=== PATIENT | female | born 1940 | race Caucasian/White ===

== ENCOUNTER 2016-07-05 12:03 | Emergency (ER) | payer OTHER ==
[~2016-07-05] VITALS: Ht 154.9 cm; Wt 78.6 kg
[~2016-07-05 12:03] MED LIST: COUM2TAB PO; FERR324T4 PO; LORT5TAB PO; MACR100C PO; METH2.5 PO; METO50 PO
[2016-07-05 12:12] VITALS: BP 198/101; PULSE 97; RESP 17; TEMP 99.4; O2SAT 95
--- NOTE | 2016-07-05 13:11 | RADRPT ---
EXAM DATE/TIME: 07/05/2016 12:33 [facility] COMPARISON: No previous studies available for comparison. INDICATIONS : Short of Breath, Cough. MEDICAL HISTORY : Asthma. Bronchitis. SURGICAL HISTORY : None. ENCOUNTER: Initial ACUITY: 1 day PAIN SCORE: 0/10 LOCATION: Bilateral chest FINDINGS: PA and lateral views of the chest. The lungs are clear. Cardiomediastinal silhouette within normal li mits. No evidence of pleural effusion or pneumothorax. CONCLUSION: No acute cardiopulmonary disease identified. Mat Brandt MD on July 05, 2016 at 13:08 Board Certified Radiologist. This report was verified electronically.
--- NOTE | 2016-07-05 13:13 | PD ---
HPI Chief Complaint: Cold / Flu Symptoms Time Seen by Provider: 13:01 Travel History International Travel<30 days: No Contact w/Intl Traveler<30days: No Traveled to known affect area: No History of Present Illness HPI This is a 76-year-old female who presents today with complaints of fevers, chills, and upper respiratory congestion and cough 1-1/2 days. The patient states that the fever and cough started at the same time. She denies any ill contacts. She does report that she did get flu vaccination this year. She denies any productive phlegm with her cough. She denies any nausea vomiting or diarrhea. She reports no urinary symptoms at this time. PFSH Past Medical History Arthritis: No Asthma: Yes Autoimmune Disease: No Blood Disorders: No Heart Rhythm Problems: No Cancer: No Cardiac Catheterization: Yes Cardiovascular Problems: No High Cholesterol: No Chest Pain: Yes Congestive Heart Failure: No COPD: No Diabetes: No Diminished Hearing: No Endocrine: No Gastrointestinal Disorders: No GERD: Yes Genitourinary: No Hiatal Hernia: No Hypertension: Yes Immune Disorder: No Implanted Vascular Access Dvce: No Musculoskeletal: Yes (right knee surgery) Neurologic: No Psychiatric: No Reproductive: No Respiratory: Yes Immunizations Current: Yes Pancreatitis: Yes Sleep Apnea: No Thyroid Disease: No Ulcer: No PNEUMOCCOCAL Vaccine (Year): 1 Menopausal: Yes Past Surgical History Abdominal Surgery: Yes (cholecystectomy) Cardiac Surgery: No Cholecystectomy: Yes Ear Surgery: No Endocrine Surgery: No Eye Surgery: No Genitourinary Surgery: No Gynecologic Surgery: No Joint Replacement: Yes (left knee 06/2011) Oral Surgery: No Thoracic Surgery: No Other Surgery: Yes (right knee) Social History Alcohol Use: No Tobacco Use: No Substance Use: No Allergies-Medications (Allergen,Severity, Reaction): Coded Allergies: Iodine (Verified Allergy, Severe, 07/05/16) Reported Meds & Prescriptions Reported Meds & Active Scripts Active Zithromax Z-Rancho (Azithromycin) 250 Mg Dspk 250 Mg PO DIRECTED 500 MG (2 tabs) day 1, then 1 tab days 2-5. Guaifenesin DM Liq (Guaifenesin-Dextromethorphan Liq) 10-100 Mg/5 Ml Liq 5 Ml PO Q4H PRN Reported Lisinopril 2.5 Mg Tab 2.5 Mg PO DAILY Omeprazole Unknown Strength Cap Unknown Dose PO DAILY Review of Systems Except as stated in HPI: all other systems reviewed are Neg General / Constitutional: Positive: Fever, Chills HENT: No: Headaches, Lightheadedness Cardiovascular: No: Chest Pain or Discomfort, Palpitations Respiratory: Positive: Cough, No: Shortness of Breath Gastrointestinal: No: Nausea, Vomiting, Abdominal Pain Musculoskeletal: Positive: Other (history of osteoarthritis) Skin: No Rash Neurologic: No: Weakness, Dizziness Physical Exam Narrative GENERAL: This is a very pleasant well developed well-nourished female in no acute respiratory distress. The patient was noted to cough occasionally when I entered the room. SKIN: Warm and dry. HEAD: Atraumatic. Normocephalic. EYES: No scleral icterus. No injection or drainage. ENT: No nasal bleeding or discharge. Mucous membranes pink and moist. NECK: Trachea midline. No JVD. CARDIOVASCULAR: Regular rate and rhythm. No murmur appreciated. RESPIRATORY: No accessory muscle use. Clear to auscultation. Breath sounds equal bilaterally. Hepatic and splenic margins not palpable. MUSCULOSKELETAL: No cyanosis. No edema. NEUROLOGICAL: Awake and alert. No obvious cranial nerve deficits. Motor grossly within normal limits. Normal speech. Data Data Last Documented VS Vital Signs Date Time Temp Pulse Resp B/P Pulse Ox O2 Delivery O2 Flow Rate FiO2 07/05/16 15:18 80 18 103/49 98 Room Air 07/05/16 14:38 99.0 Orders Chest, Pa & Lat (07/05/16 ) Complete Blood Count With Diff (07/05/16 13:01) Basic Metabolic Panel (Bmp) (07/05/16 13:01) Ua Includes Microscopic (07/05/16 13:01) Influenzae A/B Antigen (07/05/16 13:01) Sodium Chlor 0.9% 1000 Ml Inj (Ns 1000 M (07/05/16 13:15) Acetaminophen (Tylenol) (07/05/16 13:15) Guaifen-Cod 200-20 Mg/10ml Liq (Robituss (07/05/16 13:30) Sodium Chlorid 0.9% 500 Ml Inj (Ns 500 M (07/05/16 15:30) Labs Laboratory Tests Test 07/05/16 13:15 White Blood Count 6.7 TH/MM3 Red Blood Count 3.92 MIL/MM3 Hemoglobin 11.6 GM/DL Hematocrit 35.1 % Mean Corpuscular Volume 89.7 FL Mean Corpuscular Hemoglobin 29.7 PG Mean Corpuscular Hemoglobin 33.1 % Concent Red Cell Distribution Width 16.0 % Platelet Count 228 TH/MM3 Mean Platelet Volume 8.8 FL Neutrophils (%) (Auto) 87.7 % Lymphocytes (%) (Auto) 4.9 % Monocytes (%) (Auto) 7.2 % Eosinophils (%) (Auto) 0.1 % Basophils (%) (Auto) 0.1 % Neutrophils # (Auto) 5.9 TH/MM3 Lymphocytes # (Auto) 0.3 TH/MM3 Monocytes # (Auto) 0.5 TH/MM3 Eosinophils # (Auto) 0.0 TH/MM3 Basophils # (Auto) 0.0 TH/MM3 CBC Comment DIFF FINAL Differential Comment Sodium Level 142 MEQ/L Potassium Level 4.3 MEQ/L Chloride Level 109 MEQ/L Carbon Dioxide Level 25.9 MEQ/L Anion Gap 7 MEQ/L Blood Urea Nitrogen 20 MG/DL Creatinine 1.26 MG/DL Estimat Glomerular Filtration 42 ML/MIN Rate Random Glucose 83 MG/DL Calcium Level 8.6 MG/DL MDM Medical Decision Making Medical Screen Exam Complete: Yes Emergency Medical Condition: Yes Differential Diagnosis Influenza versus bacterial pneumonia versus bronchitis Narrative Course 76-year-old female presents with fever cough and congestion. The patient had a temperature of 102.4 when she arrived. She had chills with her fever. She was given Tylenol 1 g by mouth times one dose. Her laboratory shows elevated BUN/ creatinine. White count was within normal limits. Chest x-ray shows no evidence of acute infiltrate. Influenza A and B are negative. Given her fever and cough, I will treat her with azithromycin Z-Rancho. She also be given a prescription for cough syrup. She is instructed to return if she does any worsening symptoms i.e. worsening cough continued fever that does not go away, or any other reason that concerns them. She'll follow up with her primary care physician. Diagnosis Primary Impression: Upper respiratory infection Additional Impressions: Fever Mild dehydration Additional Instructions: Increase fluid intake. Return if feeling worse, continued fever, or any other reason that concerned her. Tylenol and Motrin for the fever. Med/Other Pt SpecificInfo: Prescription(s) given Scripts Azithromycin (Zithromax Z-Rancho)250 Mg [id number] Mg PO DIRECTED #1 DSPK Ref 0 500 MG (2 tabs) day 1, then 1 tab days 2-5. Prov:Jadon Arenas MD 07/05/16 Guaifenesin-Dextromethorphan Liq (Guaifenesin DM Liq)10-100 Mg/5 Ml Liq5 Ml PO Q4H PRN (COUGH) #1 BOTTLE Ref 0 Prov:Jadon Arenas MD 07/05/16 Disposition: 01 DISCHARGE HOME Condition: Stable Jadon Arenas MD Jul 05, 2016 13:13
[2016-07-05 13:15] VITALS: BP 142/88; PULSE 96; RESP 20; O2SAT 99
[2016-07-05] MEDS ORDERED: ACETAMINOPHEN 500 MG CPLT PO ONE (13:15)
[2016-07-05] MEDS ORDERED: SODIUM CHLOR 0.9% 1000 ML INJ 1,000 ML IV SCH (13:15)
[2016-07-05] MEDS ORDERED: LISI2.5T3 PO (13:21)
[2016-07-05] MEDS ORDERED: OMEP10CA PO (13:21)
[2016-07-05] MEDS ORDERED: guaiFENesin/CODEINE SYRUP 200 MG/20 MG/10 ML CUP PO ONE (13:30)
[2016-07-05 14:01] LABS: AUTOMATED NEUTROPHIL # 5.9 TH/MM3 (1.8-7.7); BASOPHIL % 0.1 % (0.0-2.0); EOSINOPHIL % 0.1 % (0.0-4.0); HEMATOCRIT 35.1 % (35.0-46.0); HEMO FLAGS DIFF FINAL; LYMPH % 4.9 % (9.0-44.0); LYMPHOCYTE # 0.3 TH/MM3 (1.0-4.8); MEAN CELL VOLUME 89.7 FL (80.0-100.0); MEAN CORPUSCULAR HEMOGLOBIN 29.7 PG (27.0-34.0); MEAN CORPUSCULAR HGB CONC 33.1 % (32.0-36.0); MONO % 7.2 % (0.0-8.0); NEUT % 87.7 % (16.0-70.0); PLATELET COUNT 228 TH/MM3 (150-450); RED BLOOD COUNT 3.92 MIL/MM3 (4.00-5.30); WHITE BLOOD COUNT 6.7 TH/MM3 (4.0-11.0)
[2016-07-05 14:23] LABS: BICARBONATE 25.9 MEQ/L (21.0-32.0)
[2016-07-05 14:24] LABS: POTASSIUM 4.3 MEQ/L (3.5-5.1)
[2016-07-05 14:38] VITALS: TEMP 99
[2016-07-05 15:18] VITALS: BP 103/49; PULSE 80; RESP 18; O2SAT 98
[2016-07-05] MEDS ORDERED: ZITHTAB PO (15:28)
[2016-07-05] MEDS ORDERED: GUAISYP7 PO (15:28)
[2016-07-05] MEDS ORDERED: SODIUM CHLORID 0.9% 500 ML INJ 500 ML IV ONE (15:30)
[2016-07-05 16:22] VITALS: BP 105/52
== END 2016-07-05 16:23 | disposition home or self-care (01) ==
LOC: NEPE 12:03
DX: J06.9 Acute upper respiratory infection, unspecified (principal); J45.909 Unspecified asthma, uncomplicated; I10 Essential (primary) hypertension; K21.9 Gastro-esophageal reflux disease without esophagitis; E86.0 Dehydration
CPT/HCPCS: 71020; 80048; 85025; 87804; 96360; 96361; 99283; J7030; J7040

== ENCOUNTER 2016-07-10 09:31 | Emergency (ER) | payer OTHER ==
[~2016-07-10] VITALS: Ht 157.5 cm; Wt 75.0 kg
[~2016-07-10 09:31] MED LIST changes: -COUM2TAB PO; -FERR324T4 PO; +GUAISYP7 PO; +LISI2.5T3 PO; -LORT5TAB PO; -MACR100C PO; -METH2.5 PO; -METO50 PO; +OMEP10CA PO; +ZITHTAB PO
[2016-07-10 09:33] VITALS: BP 190/102; PULSE 86; RESP 16; TEMP 98.6; O2SAT 96
--- NOTE | 2016-07-10 11:24 | PD ---
HPI . abdominal pain, cough, fever, x 3 days Chief Complaint: Cold / Flu Symptoms Time Seen by Provider: 11:30 Travel History International Travel<30 days: No Contact w/Intl Traveler<30days: No Traveled to known affect area: No History of Present Illness HPI 76-year-old Bruneian-speaking female with hypertension and reflux here accompanied by her daughter (who speaks pakistani), here with complaints of stomach pain for 5 days, constipation for 2 days, nausea for 2 days, fever for 3 days, cough and yellow phlegm. Patient states she has been coughing quite frequently that is causing her stomach to hurt. In addition she admits to some constipation for 2 days. She has not tried any zpjx-onr-hynrzsa formulations to improve her symptoms. She is only taking lisinopril and omeprazole. Patient describes pain as sharp without any radiation. She tells me that it is very mild pain but present. She denies any chest pain or shortness of breath. Initially coming in her blood pressure was high. At the time of examination was 150/71. She is followed by Dr. Zaragoza out of [place], [place]. She was previously seen here on 07/05/16 for upper respiratory infection and treated with zpack and mucinex. She had a CXR at that time that was negative. She also had mildly elevated BUN/Creatinine. PFSH Past Medical History Arthritis: No Asthma: Yes Autoimmune Disease: No Blood Disorders: No Heart Rhythm Problems: No Cancer: No Cardiac Catheterization: Yes Cardiovascular Problems: No High Cholesterol: No Chest Pain: Yes Congestive Heart Failure: No COPD: No Diabetes: No Diminished Hearing: No Endocrine: No Gastrointestinal Disorders: No GERD: Yes Genitourinary: No Hiatal Hernia: No Hypertension: Yes Immune Disorder: No Implanted Vascular Access Dvce: No Musculoskeletal: Yes (right knee surgery) Neurologic: No Psychiatric: No Reproductive: No Respiratory: Yes Immunizations Current: Yes Pancreatitis: Yes Sleep Apnea: No Thyroid Disease: No Ulcer: No PNEUMOCCOCAL Vaccine (Year): 1 ?: Not Menopausal: Yes Past Surgical History Abdominal Surgery: Yes (cholecystectomy) Cardiac Surgery: No Cholecystectomy: Yes Ear Surgery: No Endocrine Surgery: No Eye Surgery: No Genitourinary Surgery: No Gynecologic Surgery: No Joint Replacement: Yes (left knee 06/2011) Oral Surgery: No Thoracic Surgery: No Other Surgery: Yes (right knee) Social History Alcohol Use: No Tobacco Use: No Substance Use: No Allergies-Medications (Allergen,Severity, Reaction): Coded Allergies: Iodine (Verified Allergy, Severe, 07/10/16) Reported Meds & Prescriptions Reported Meds & Active Scripts Active Zofran Odt (Ondansetron Odt) 4 Mg Tab 4 Mg SL Q8HR PRN Tessalon Perles (Benzonatate) 100 Mg Cap 100 Mg PO TID PRN Tamiflu (Oseltamivir Phosphate) 75 Mg Cap 75 Mg PO BID 5 Days Reported Lisinopril 2.5 Mg Tab 2.5 Mg PO DAILY Omeprazole Unknown Strength Cap Unknown Dose PO DAILY Review of Systems General / Constitutional: Positive: Fever, Chills Eyes: No: Visual changes HENT: No: Headaches Cardiovascular: No: Chest Pain or Discomfort Respiratory: Positive: Cough, No: Shortness of Breath Gastrointestinal: Positive: Nausea, Abdominal Pain, Constipation, No: Diarrhea Genitourinary: No: Dysuria Musculoskeletal: No: Pain Skin: No Rash Neurologic: No: Weakness Psychiatric: No: Depression Endocrine: No: Polydipsia Hematologic/Lymphatic: No: Easy Bruising Physical Exam Narrative GENERAL: AAO x 3, no acute distress, Well-nourished, well-developed patient. SKIN: Warm and dry. No visible rashes or bruising. HEAD: Normocephalic and atraumatic. EYES: No scleral icterus. No injection or drainage. EOM intact, PERRLA ENT: No nasal drainage noted. Mucous membranes pink. Airway patent. NECK: Supple, trachea midline. No JVD. No lymphadenopathy. CARDIOVASCULAR: Regular rate and rhythm without murmurs, gallops, or rubs. RESPIRATORY: Breath sounds equal bilaterally. No accessory muscle use. slight expiratory wheeze. GASTROINTESTINAL: Abdomen soft, nondistended, minimal tenderness with deep palpation. Normoactive bowel sounds. EXTREMITIES: No cyanosis or edema. BACK: Nontender without obvious deformity. No CVA tenderness. PSYCH: AAO x 3, normal affect. Data Data Last Documented VS Vital Signs Date Time Temp Pulse Resp B/P Pulse Ox O2 Delivery O2 Flow Rate FiO2 07/10/16 13:07 22 Room Air 07/10/16 12:03 99 07/10/16 11:38 98.4 65 150/71 Orders Complete Blood Count With Diff (07/10/16 11:41) Comprehensive Metabolic Panel (07/10/16 11:41) Lipase (07/10/16 11:41) Lactic Acid (07/10/16 11:41) Urinalysis - C+S If Indicated (07/10/16 11:41) Iv Access Insert/Monitor (07/10/16 11:41) Ecg Monitoring (07/10/16 11:41) Oximetry (07/10/16 11:41) Sodium Chloride 0.9% Flush (Ns Flush) (07/10/16 11:45) Electrocardiogram (07/10/16 11:41) Chest, Single Ap (07/10/16 11:41) Influenzae A/B Antigen (07/10/16 11:41) Ondansetron Inj (Zofran Inj) (07/10/16 12:45) Hydrocodone-Homatropine Liq (Hycodan Liq (07/10/16 13:30) Us Abdomen Gallbladder (07/10/16 13:45) Labs Laboratory Tests Test 07/10/16 07/10/16 07/10/16 12:00 12:32 13:15 White Blood Count 2.5 TH/MM3 Red Blood Count 3.95 MIL/MM3 Hemoglobin 11.3 GM/DL Hematocrit 34.9 % Mean Corpuscular Volume 88.3 FL Mean Corpuscular Hemoglobin 28.7 PG Mean Corpuscular Hemoglobin 32.5 % Concent Red Cell Distribution Width 16.7 % Platelet Count 203 TH/MM3 Mean Platelet Volume 8.9 FL Neutrophils (%) (Auto) 74.2 % Lymphocytes (%) (Auto) 18.2 % Monocytes (%) (Auto) 5.8 % Eosinophils (%) (Auto) 0.6 % Basophils (%) (Auto) 1.2 % Neutrophils # (Auto) 1.9 TH/MM3 Lymphocytes # (Auto) 0.5 TH/MM3 Monocytes # (Auto) 0.1 TH/MM3 Eosinophils # (Auto) 0.0 TH/MM3 Basophils # (Auto) 0.0 TH/MM3 CBC Comment DIFF FINAL Differential Comment Sodium Level 142 MEQ/L Potassium Level 5.1 MEQ/L Chloride Level 110 MEQ/L Carbon Dioxide Level 25.2 MEQ/L Anion Gap 7 MEQ/L Blood Urea Nitrogen 13 MG/DL Creatinine 0.96 MG/DL Estimat Glomerular Filtration 57 ML/MIN Rate Random Glucose 87 MG/DL Calcium Level 8.5 MG/DL Total Bilirubin 0.4 MG/DL Aspartate Amino Transf 257 U/L (AST/SGOT) Alanine Aminotransferase 117 U/L (ALT/SGPT) Alkaline Phosphatase 111 U/L Total Protein 6.5 GM/DL Albumin 3.5 GM/DL Lipase 165 U/L Urine Color YELLOW Urine Turbidity CLEAR Urine pH 6.0 Urine Specific Chaplin 1.016 Urine Protein TRACE mg/dL Urine Glucose (UA) NEG mg/dL Urine Ketones NEG mg/dL Urine Occult Blood NEG Urine Nitrite NEG Urine Bilirubin NEG Urine Urobilinogen LESS THAN 2.0 MG/DL Urine Leukocyte Esterase SMALL Urine RBC 1 /hpf Urine WBC 4 /hpf Urine Squamous Epithelial 2 /hpf Cells Urine Mucus FEW /lpf Microscopic Urinalysis Comment CULT NOT INDICATED Lactic Acid Level 1.0 mmol/L MDM Medical Decision Making Medical Screen Exam Complete: Yes Emergency Medical Condition: Yes Medical Record Reviewed: Yes Differential Diagnosis bronchitis, PNA, viral syndrome, constipation, Narrative Course 76-year-old Bruneian-speaking female with hypertension and reflux here accompanied by her daughter (who speaks pakistani), here with complaints of stomach pain for 5 days, constipation for 2 days, nausea for 2 days, fever for 3 days, cough and yellow phlegm. Patient states she has been coughing quite frequently that is causing her stomach to hurt. In addition she admits to some constipation for 2 days. She has not tried any huiv-pbu-hdldgzs formulations to improve her symptoms. She is only taking lisinopril and omeprazole. Patient describes pain as sharp without any radiation. She tells me that it is very mild pain but present. She denies any chest pain or shortness of breath. Initially coming in her blood pressure was high. At the time of examination was 150/71. She is followed by Dr. Zaragoza out of [place], [place]. She was previously seen here on 07/05/16 for upper respiratory infection and treated with zpack and mucinex. She had a CXR at that time that was negative. She also had mildly elevated BUN/Creatinine. Patient seen and examined. Case discussed with Dr. Theodore. CXR, labs including UA, influenza, and lipase ordered EKG is normal. CXR is normal 1241: discussed with daughter. Patient now complaining of nausea. Zofran ordered. influenza A positive Patient requesting something for cough: Hycodan given in ED LFTs elevated: Liver US ordered. May be related to zithromax usage Last 24 hours Impressions Chest X-Ray 07/10/16 1141 Signed Impressions: Service Date/Time: Sunday, July 10, 2016 12:10 - CONCLUSION: No acute disease. Jonh Narvaez MD FACR Laboratory Tests Test 07/10/16 07/10/16 07/10/16 12:00 12:32 13:15 White Blood Count 2.5 TH/MM3 Red Blood Count 3.95 MIL/MM3 Hemoglobin 11.3 GM/DL Hematocrit 34.9 % Mean Corpuscular Volume 88.3 FL Mean Corpuscular Hemoglobin 28.7 PG Mean Corpuscular Hemoglobin 32.5 % Concent Red Cell Distribution Width 16.7 % Platelet Count 203 TH/MM3 Mean Platelet Volume 8.9 FL Neutrophils (%) (Auto) 74.2 % Lymphocytes (%) (Auto) 18.2 % Monocytes (%) (Auto) 5.8 % Eosinophils (%) (Auto) 0.6 % Basophils (%) (Auto) 1.2 % Neutrophils # (Auto) 1.9 TH/MM3 Lymphocytes # (Auto) 0.5 TH/MM3 Monocytes # (Auto) 0.1 TH/MM3 Eosinophils # (Auto) 0.0 TH/MM3 Basophils # (Auto) 0.0 TH/MM3 CBC Comment DIFF FINAL Differential Comment Sodium Level 142 MEQ/L Potassium Level 5.1 MEQ/L Chloride Level 110 MEQ/L Carbon Dioxide Level 25.2 MEQ/L Anion Gap 7 MEQ/L Blood Urea Nitrogen 13 MG/DL Creatinine 0.96 MG/DL Estimat Glomerular Filtration 57 ML/MIN Rate Random Glucose 87 MG/DL Calcium Level 8.5 MG/DL Total Bilirubin 0.4 MG/DL Aspartate Amino Transf 257 U/L (AST/SGOT) Alanine Aminotransferase 117 U/L (ALT/SGPT) Alkaline Phosphatase 111 U/L Total Protein 6.5 GM/DL Albumin 3.5 GM/DL Lipase 165 U/L Urine Color YELLOW Urine Turbidity CLEAR Urine pH 6.0 Urine Specific Chaplin 1.016 Urine Protein TRACE mg/dL Urine Glucose (UA) NEG mg/dL Urine Ketones NEG mg/dL Urine Occult Blood NEG Urine Nitrite NEG Urine Bilirubin NEG Urine Urobilinogen LESS THAN 2.0 MG/DL Urine Leukocyte Esterase SMALL Urine RBC 1 /hpf Urine WBC 4 /hpf Urine Squamous Epithelial 2 /hpf Cells Urine Mucus FEW /lpf Microscopic Urinalysis Comment CULT NOT INDICATED Lactic Acid Level 1.0 mmol/L Patient verbalized understanding of instructions, questions were answered, and thanked me for their care. I advised them if their condition worsens, please return to the nearest emergency room for further care. Diagnosis Primary Impression: Influenza A Additional Impressions: Fever Qualified Code: R50.9 - Fever, unspecified fever cause Elevated LFTs Patient Instructions: Acute Cough (ED), Fever in Adults (ED), General Instructions, H1N1 Influenza (ED) Additional Instructions: Please return to emergency department if your symptoms return or worsen. Follow up with your primary care provider. Your liver function tests were elevated. Your primary care doctor will need to recheck these to make sure they are coming down. Take medications as prescribed. Med/Other Pt SpecificInfo: Prescription(s) given, No Change to Meds Scripts Ondansetron Odt (Zofran Odt)4 Mg Tab4 Mg SL Q8HR PRN (Nausea/Vomiting) #30 TAB Ref 0 Prov:Keshia Willams 07/10/16 Benzonatate (Tessalon Perles)100 Mg [id number] Mg PO TID PRN (COUGH) #30 CAP Ref 0 Prov:Keshia Willams 07/10/16 Oseltamivir (Tamiflu)75 Mg Cap75 Mg PO BID 5 Days Ref 0 Prov:Keshia Willams 07/10/16 Disposition: 01 DISCHARGE HOME Condition: Stable Keshia Willams Jul 10, 2016 11:23
[2016-07-10 11:38] VITALS: BP 150/71; PULSE 65; RESP 22; TEMP 98.4; O2SAT 98
[2016-07-10] MEDS ORDERED: SODIUM CHLORIDE 0.9% FLUSH 5 ML FLUSH IVF PRN (11:45)
[2016-07-10 12:03] VITALS: O2SAT 99
--- NOTE | 2016-07-10 12:36 | RADRPT ---
EXAM DATE/TIME: 07/10/2016 12:10 [facility] COMPARISON: No previous studies available for comparison. INDICATIONS : Short of breath, cough, slight pain left upper chest, nausea. Coughing for one week MEDICAL HISTORY : asthma, bronchitis SURGICAL HISTORY : None. ENCOUNTER: Initial ACUITY: 1 week PAIN SCORE: 2/10 LOCATION: Bilateral chest FINDINGS: A single view of the chest demonstrates the lungs to be symmetrically aerated without evidence of mas s, infiltrate or effusion. The cardiomediastinal contours are unremarkable. Osseous structures are intact. CONCLUSION: No acute disease. Jonh Narvaez MD FACR on July 10, 2016 at 12:35 Board Certified Radiologist. This report was verified electronically.
[2016-07-10] MEDS ORDERED: ONDANSETRON HCL 4 MG/2 ML VIAL IV PUSH ONE (12:45)
[2016-07-10] MEDS ORDERED: OSEL75 PO (12:57)
[2016-07-10] MEDS ORDERED: BENZ100 PO (12:57)
[2016-07-10 12:58] LABS: BLOOD, URINE NEG (NEG); COMMENT (UR) CULT NOT INDICATED; CULTURE IF INDICATED CULT NOT INDICATED; GLUCOSE,URINE NEG (NEG); KETONE, URINE NEG (NEG); MUCUS URINE FEW /lpf (OCC); NITRITE,URINE NEG (NEG); SQUAMOUS EPITHELIAL CELL URINE 2 /hpf (0-5); URINE COLOR YELLOW (YELLW/STRAW)
[2016-07-10 13:16] LABS: AUTOMATED NEUTROPHIL # 1.9 TH/MM3 (1.8-7.7); BASOPHIL % 1.2 % (0.0-2.0); EOSINOPHIL % 0.6 % (0.0-4.0); HEMATOCRIT 34.9 % (35.0-46.0); HEMO FLAGS DIFF FINAL; LYMPH % 18.2 % (9.0-44.0); LYMPHOCYTE # 0.5 TH/MM3 (1.0-4.8); MEAN CELL VOLUME 88.3 FL (80.0-100.0); MEAN CORPUSCULAR HEMOGLOBIN 28.7 PG (27.0-34.0); MEAN CORPUSCULAR HGB CONC 32.5 % (32.0-36.0); MONO % 5.8 % (0.0-8.0); NEUT % 74.2 % (16.0-70.0); PLATELET COUNT 203 TH/MM3 (150-450); RED BLOOD COUNT 3.95 MIL/MM3 (4.00-5.30); RED CELL DISTRIBUTION WIDTH 16.7 % (11.6-17.2); WHITE BLOOD COUNT 2.5 TH/MM3 (4.0-11.0)
[2016-07-10] MEDS ORDERED: HYDROcodone 5 MG/HOMATROPINE 1.5 MG SYRUP 5 ML CUP PO ONE (13:30)
[2016-07-10 13:34] LABS: ALKALINE PHOSPHATASE 111 U/L (45-117); TOTAL BILIRUBIN ADULT 0.4 MG/DL (0.2-1.0)
[2016-07-10 13:38] LABS: ALT (GPT) 117 U/L (10-53); ANION GAP 7 MEQ/L (5-15); AST (GOT) 257 U/L (15-37); BICARBONATE 25.2 MEQ/L (21.0-32.0); BLOOD UREA NITROGEN 13 MG/DL (7-18); CHLORIDE 110 MEQ/L (98-107); GLOMERULAR FILTRATION RATE 57 ML/MIN (>89); POTASSIUM 5.1 MEQ/L (3.5-5.1); SODIUM (NA) 142 MEQ/L (136-145)
[2016-07-10] MEDS ORDERED: ZOFR4TAB3 SL (14:27)
--- NOTE | 2016-07-10 15:03 | RADRPT ---
EXAM DATE/TIME: 07/10/2016 14:22 [facility] COMPARISON: No previous studies available for comparison. INDICATIONS : Nausea and vomiting. MEDICAL HISTORY : Gastroesophageal reflux disease. Hypertension. Asthma. Pancreatic tumor. SURGICAL HISTORY : Cholecystectomy. Bilateral knee surgery. Cardiac catheterization. ENCOUNTER: Subsequent ACUITY: 1 day PAIN SCORE: 0/10 LOCATION: Right upper quadrant MEASUREMENTS: LIVER: 15.4 cm length COMMON DUCT: 10 mm RIGHT KIDNEY: 10.4 x x 4.9 cm FINDINGS: LIVER: Normal echotexture without focal lesion or ductal dilatation. COMMON DUCT: No intraluminal mass or stone visualized. GALLBLADDER: Surgically removed. PANCREAS: There is some dilatation pancreatic duct at 6 mm. RIGHT KIDNEY: No hydronephrosis. There is a cyst along the lower pole measuring 3.1 cm. There is a possible nonobst ructing stone in the midpole measuring 6 mm. CONCLUSION: 1. Status post cholecystectomy with some dilatation of the common bile duct. This is most likely rese rvoir effect. However, recommend correlation with liver laboratory values. 2. Nonspecific dilatation of the pancreatic duct. If clinically indicated, a CT scan of the abdomen w ith IV contrast is recommended for further evaluation. This can be performed on a nonemergent outpati ent basis. 3. Possible small amount of shunting stone mid pole right kidney measuring 6 mm. 4. Benign right renal cyst measuring 3.1 cm. Zain Card MD on July 10, 2016 at 14:58 Board Certified Radiologist. This report was verified electronically.
--- NOTE | 2016-07-10 15:26 | PD ---
Physical Exam Date Seen by Provider: Jul 10, 2016 Time Seen by Provider: 13:30 Narrative I, Dr. Theodore, have reviewed the advance practice practitioner's documentation and am in agreement, met with the patient face to face, made the diagnosis, and the medical decision making was done by me. *My assessment and Findings: Patient seen and evaluated with PA, please see PA for further information. Here with nausea, vomiting, malaise, cough. GENERAL: Well-nourished, well-developed elderly female patient in no acute distress. SKIN: Warm and dry. HEAD: Normocephalic. EYES: No scleral icterus. No injection or drainage. NECK: Supple, trachea midline. CARDIOVASCULAR: Regular rate and rhythm without murmurs, gallops, or rubs. RESPIRATORY: Breath sounds equal bilaterally. No accessory muscle use. GASTROINTESTINAL: Abdomen soft, non-tender, nondistended. Benign. MUSCULOSKELETAL: No cyanosis, or edema. BACK: Nontender without obvious deformity. No CVA tenderness. Laboratory Tests Test 07/10/16 07/10/16 12:00 12:32 White Blood Count 2.5 TH/MM3 (4.0-11.0) Red Blood Count 3.95 MIL/MM3 (4.00-5.30) Hemoglobin 11.3 GM/DL (11.6-15.3) Hematocrit 34.9 % (35.0-46.0) Neutrophils (%) (Auto) 74.2 % (16.0-70.0) Lymphocytes # (Auto) 0.5 TH/MM3 (1.0-4.8) Chloride Level 110 MEQ/L (98-107) Estimat Glomerular Filtration 57 ML/MIN (>89) Rate Aspartate Amino Transf 257 U/L (15-37) (AST/SGOT) Alanine Aminotransferase 117 U/L (10-53) (ALT/SGPT) Urine Leukocyte Esterase SMALL (NEG) Urine Mucus FEW /lpf (OCC) Last 24 hours Impressions Chest X-Ray 07/10/16 1141 Signed Impressions: Service Date/Time: Sunday, July 10, 2016 12:10 - CONCLUSION: No acute disease. Jonh Narvaez MD FACR Abdomen is fairly benign. Her LFTs are mildly elevated. She has influenza. I suspect that influenza is the cause of her current symptoms. Vital signs are stable in the ER. Ultrasound done did not show any signs of significant acute liver or gallbladder processes. She is status post cholecystectomy. At this point, my plan would be to release her with symptomatic relief for nausea and vomiting and treatment for influenza. Follow-up with primary care physician as needed. Return for any worsening in symptoms. The plan was discussed with her and she states understanding. Data Data Last Documented VS Vital Signs Date Time Temp Pulse Resp B/P Pulse Ox O2 Delivery O2 Flow Rate FiO2 07/10/16 13:07 22 Room Air 07/10/16 12:03 99 07/10/16 11:38 98.4 65 150/71 Orders Complete Blood Count With Diff (07/10/16 11:41) Comprehensive Metabolic Panel (07/10/16 11:41) Lipase (07/10/16 11:41) Lactic Acid (07/10/16 11:41) Urinalysis - C+S If Indicated (07/10/16 11:41) Iv Access Insert/Monitor (07/10/16 11:41) Ecg Monitoring (07/10/16 11:41) Oximetry (07/10/16 11:41) Sodium Chloride 0.9% Flush (Ns Flush) (07/10/16 11:45) Electrocardiogram (07/10/16 11:41) Chest, Single Ap (07/10/16 11:41) Influenzae A/B Antigen (07/10/16 11:41) Ondansetron Inj (Zofran Inj) (07/10/16 12:45) Hydrocodone-Homatropine Liq (Hycodan Liq (07/10/16 13:30) Us Abdomen Gallbladder (07/10/16 13:45) Labs Laboratory Tests Test 07/10/16 07/10/16 07/10/16 12:00 12:32 13:15 White Blood Count 2.5 TH/MM3 Red Blood Count 3.95 MIL/MM3 Hemoglobin 11.3 GM/DL Hematocrit 34.9 % Mean Corpuscular Volume 88.3 FL Mean Corpuscular Hemoglobin 28.7 PG Mean Corpuscular Hemoglobin 32.5 % Concent Red Cell Distribution Width 16.7 % Platelet Count 203 TH/MM3 Mean Platelet Volume 8.9 FL Neutrophils (%) (Auto) 74.2 % Lymphocytes (%) (Auto) 18.2 % Monocytes (%) (Auto) 5.8 % Eosinophils (%) (Auto) 0.6 % Basophils (%) (Auto) 1.2 % Neutrophils # (Auto) 1.9 TH/MM3 Lymphocytes # (Auto) 0.5 TH/MM3 Monocytes # (Auto) 0.1 TH/MM3 Eosinophils # (Auto) 0.0 TH/MM3 Basophils # (Auto) 0.0 TH/MM3 CBC Comment DIFF FINAL Differential Comment Sodium Level 142 MEQ/L Potassium Level 5.1 MEQ/L Chloride Level 110 MEQ/L Carbon Dioxide Level 25.2 MEQ/L Anion Gap 7 MEQ/L Blood Urea Nitrogen 13 MG/DL Creatinine 0.96 MG/DL Estimat Glomerular Filtration 57 ML/MIN Rate Random Glucose 87 MG/DL Calcium Level 8.5 MG/DL Total Bilirubin 0.4 MG/DL Aspartate Amino Transf 257 U/L (AST/SGOT) Alanine Aminotransferase 117 U/L (ALT/SGPT) Alkaline Phosphatase 111 U/L Total Protein 6.5 GM/DL Albumin 3.5 GM/DL Lipase 165 U/L Urine Color YELLOW Urine Turbidity CLEAR Urine pH 6.0 Urine Specific [place] 1.016 Urine Protein TRACE mg/dL Urine Glucose (UA) NEG mg/dL Urine Ketones NEG mg/dL Urine Occult Blood NEG Urine Nitrite NEG Urine Bilirubin NEG Urine Urobilinogen LESS THAN 2.0 MG/DL Urine Leukocyte Esterase SMALL Urine RBC 1 /hpf Urine WBC 4 /hpf Urine Squamous Epithelial 2 /hpf Cells Urine Mucus FEW /lpf Microscopic Urinalysis Comment CULT NOT INDICATED Lactic Acid Level 1.0 mmol/L [facility] Medical Record Reviewed: Yes Supervised Visit with IRIS: Yes Diagnosis Primary Impression: Influenza A Additional Impressions: Fever Qualified Code: R50.9 - Fever, unspecified fever cause Elevated LFTs Patient Instructions: General Instructions, Fever in Adults (ED), H1N1 Influenza (ED), Acute Cough (ED) Departure Forms: Tests/Procedures Additional Instruction: Please return to emergency department if your symptoms return or worsen. Follow up with your primary care provider. Your liver function tests were elevated. Your primary care doctor will need to recheck these to make sure they are coming down. Take medications as prescribed. Scripts Ondansetron Odt (Zofran Odt)4 Mg Tab4 Mg SL Q8HR PRN (Nausea/Vomiting) #30 TAB Ref 0 Prov:Keshia Willams 07/10/16 Benzonatate (Tessalon Perles)100 Mg Epi261 Mg PO TID PRN (COUGH) #30 CAP Ref 0 Prov:Keshia Willams 07/10/16 Oseltamivir (Tamiflu)75 Mg Cap75 Mg PO BID 5 Days Ref 0 Prov:Keshia Willams 07/10/16 Disposition: 01 DISCHARGE HOME Condition: Stable Cayetano Theodore MD Jul 10, 2016 15:26
[2016-07-10 15:35] VITALS: BP 167/73
--- NOTE | 2016-07-10 21:38 | EKG ---
Date Performed: 07/10/2016 Time Performed: 12:16:08 PTAGE: 76 years EKG: Sinus rhythm NORMAL ECG NO PREVIOUS TRACING DOCTOR: Brayan Jasso Interpretating Date/Time 07/10/2016 21:36:43
== END 2016-07-10 15:51 | disposition home or self-care (01) ==
LOC: NEPC 09:31
DX: J09.X2 Influenza due to identified novel influenza A virus with other respiratory manifestations (principal); R79.89 Other specified abnormal findings of blood chemistry; R50.9 Fever, unspecified; K59.00 Constipation, unspecified; K21.9 Gastro-esophageal reflux disease without esophagitis; I10 Essential (primary) hypertension; J45.909 Unspecified asthma, uncomplicated
CPT/HCPCS: 71010; 76705; 80053; 81001; 83605; 83690; 85025; 87804; 93005; 96374; 99284; J2405

== ENCOUNTER 2016-11-29 08:22 | Inpatient (IN) | payer OTHER, MEDICARE ==
[~2016-11-29] VITALS: Ht 165.1 cm; Wt 75.0 kg
[2016-11-29] VITALS (9 sets, daily range): BP systolic 131–234; BP diastolic 64–102; PULSE 60–81; RESP 17–24; TEMP 97.2–98.9; O2SAT 98–100
[~2016-11-29 08:22] MED LIST changes: +BENZ100 PO; -GUAISYP7 PO; +OSEL75 PO; -ZITHTAB PO; +ZOFR4TAB3 SL
[2016-11-29] MEDS ORDERED: METH2.5T PO (08:53)
[2016-11-29] MEDS ORDERED: PRED5TAB PO (08:53)
[2016-11-29] MEDS ORDERED: LISI40TA PO (08:53)
[2016-11-29] MEDS ORDERED: AMOX500T PO (08:53)
[2016-11-29] MEDS ORDERED: hydrALAZINE HCL 20 MG/ML VIAL IV PUSH ONE (09:00)
--- NOTE | 2016-11-29 09:01 | PD ---
HPI Chief Complaint: Neuro Symptoms/ Deficits Time Seen by Provider: 08:47 Travel History International Travel<30 days: No Contact w/Intl Traveler<30days: No Traveled to known affect area: No History of Present Illness HPI Patient is a 76-year-old female who presents to emergency room with her son for evaluation of elevated blood pressure with headache and vision changes and dizziness for the past 2 weeks. Patient reports that she has history of hypertension, reports that 2 weeks ago, she began to have left sided headache, dizziness, vision changes. Patient reports that she followed-up with her primary care doctor who increased her lisinopril to 40 mg daily. Patient reports that she has been taking her medication since yesterday but isn't feeling any better. Denies taking any anticoagulants. Denies any fall or trauma to the head or neck. Patient denies any chest pain or shortness of breath patient reports that she is also being treated for an ear infection, she is taking amoxicillin 500 mg twice a day as well as prednisone for her left- sided ear infection. 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) Sleep Apnea: No Thyroid Disease: No Ulcer: No PNEUMOCCOCAL Vaccine (Year): 1 Menopausal: Yes : 5 Para: 5 Past Surgical History Abdominal Surgery: Yes (cholecystectomy) Cardiac Surgery: No Cholecystectomy: Yes Ear Surgery: No Endocrine Surgery: No Eye Surgery: No Genitourinary Surgery: No Gynecologic Surgery: No Joint Replacement: Yes (left knee 06/2011) Oral Surgery: No Thoracic Surgery: No Other Surgery: Yes (right knee) Social History Alcohol Use: No Tobacco Use: No Substance Use: No Allergies-Medications (Allergen,Severity, Reaction): Coded Allergies: Iodine (Verified Allergy, Severe, 11/29/16) Reported Meds & Prescriptions Reported Meds & Active Scripts Active Reported Amoxicillin 500 Mg Tab 500 Mg PO BID Methotrexate 2.5 Mg Tab 8 Tab PO Q7D Lisinopril 40 Mg Tab 40 Mg PO DAILY Prednisone 5 Mg Tab 5 Mg PO DAILY Review of Systems General / Constitutional: No: Fever Eyes: Positive: Visual changes HENT: Positive: Headaches, Lightheadedness Cardiovascular: No: Chest Pain or Discomfort Respiratory: No: Shortness of Breath Gastrointestinal: No: Abdominal Pain Genitourinary: No: Dysuria Musculoskeletal: No: Pain Skin: No Rash Neurologic: Positive: Dizziness, Headache, No: Weakness Psychiatric: No: Depression Endocrine: No: Polydipsia Hematologic/Lymphatic: No: Easy Bruising Physical Exam Narrative GENERAL: Mild distress SKIN: Focused skin assessment warm/dry. HEAD: Atraumatic. Normocephalic. EYES: Pupils equal and round. No scleral icterus. No injection or drainage. ENT: No nasal bleeding or discharge. Mucous membranes pink and moist. NECK: Trachea midline. No JVD. CARDIOVASCULAR: Regular rate and rhythm. No murmur appreciated. RESPIRATORY: No accessory muscle use. Clear to auscultation. Breath sounds equal bilaterally. GASTROINTESTINAL: Abdomen soft, non-tender, nondistended. Hepatic and splenic margins not palpable. MUSCULOSKELETAL: No obvious deformities. No clubbing. No cyanosis. No edema. NEUROLOGICAL: Awake and alert. No obvious cranial nerve deficits. Motor grossly within normal limits. Normal speech. Cranial nerves 2- 12 grossly intact with no neurological deficits PSYCHIATRIC: Appropriate mood and affect; insight and judgment normal. Data Data Last Documented VS Vital Signs Date Time Temp Pulse Resp B/P Pulse Ox O2 Delivery O2 Flow Rate FiO2 11/29/16 09:39 60 22 183/97 100 Room Air 11/29/16 08:24 98.9 Orders Complete Blood Count With Diff (11/29/16 08:54) Basic Metabolic Panel (Bmp) (11/29/16 08:54) Prothrombin Time / Inr (Pt) (11/29/16 08:54) Act Partial Throm Time (Ptt) (11/29/16 08:54) Ct Brain W/O Iv Contrast(Rout) (11/29/16 08:54) Ecg Monitoring (11/29/16 08:54) Iv Access Insert/Monitor (11/29/16 08:54) Oximetry (11/29/16 08:54) Hydralazine Inj (Apresoline Inj) (11/29/16 09:00) Ckmb (Isoenzyme) Profile (11/29/16 08:54) Troponin I (11/29/16 08:54) Urinalysis - C+S If Indicated (11/29/16 08:54) Electrocardiogram (11/29/16 08:56) Admit To Inpatient (11/29/16 ) Vital Signs (Adult) Q4H (11/29/16 10:59) Activity Bed Rest With Brp (11/29/16 10:59) Public Improvement Inspector / Telemetry KAUSHIK.Q8H (11/29/16 10:59) Intake + Output KAUSHIK.QSHIFT (11/29/16 10:59) Diet Heart Healthy (11/29/16 Lunch) Sodium Chloride 0.9% Flush (Ns Flush) (11/29/16 11:00) Sodium Chloride 0.9% Flush (Ns Flush) (11/29/16 21:00) Enalaprilat Inj (Vasotec Inj) (11/29/16 11:00) Labetalol Inj (Trandate Inj) (11/29/16 11:00) Amlodipine (Norvasc) (11/29/16 11:00) Hydrochlorothiazide (Hydrodiuril) (11/29/16 11:00) Basic Metabolic Panel (Bmp) (11/30/16 06:00) Complete Blood Count With Diff (11/30/16 06:00) Lipid Profile (11/29/16 10:59) Ua Includes Microscopic (11/29/16 10:59) Electrocardiogram (11/29/16 ) Inpatient Certification (11/29/16 ) (Nf) Lisinopril (11/29/16 11:00) Admit Order (Ed Use Only) (11/29/16 11:02) Labs Laboratory Tests Test 11/29/16 11/29/16 09:25 09:36 White Blood Count 10.4 TH/MM3 Red Blood Count 4.14 MIL/MM3 Hemoglobin 12.8 GM/DL Hematocrit 38.7 % Mean Corpuscular Volume 93.5 FL Mean Corpuscular Hemoglobin 30.8 PG Mean Corpuscular Hemoglobin 33.0 % Concent Red Cell Distribution Width 15.7 % Platelet Count 283 TH/MM3 Mean Platelet Volume 8.0 FL Neutrophils (%) (Auto) 75.7 % Lymphocytes (%) (Auto) 17.4 % Monocytes (%) (Auto) 6.1 % Eosinophils (%) (Auto) 0.3 % Basophils (%) (Auto) 0.5 % Neutrophils # (Auto) 7.8 TH/MM3 Lymphocytes # (Auto) 1.8 TH/MM3 Monocytes # (Auto) 0.6 TH/MM3 Eosinophils # (Auto) 0.0 TH/MM3 Basophils # (Auto) 0.1 TH/MM3 CBC Comment DIFF FINAL Differential Comment Prothrombin Time 10.2 SEC Prothromb Time International 0.9 RATIO Ratio Activated Partial 25.8 SEC Thromboplast Time Sodium Level 140 MEQ/L Potassium Level 4.3 MEQ/L Chloride Level 112 MEQ/L Carbon Dioxide Level 22.2 MEQ/L Anion Gap 6 MEQ/L Blood Urea Nitrogen 29 MG/DL Creatinine 1.21 MG/DL Estimat Glomerular Filtration 43 ML/MIN Rate Random Glucose 85 MG/DL Calcium Level 8.9 MG/DL Total Creatine Kinase 49 U/L Troponin I LESS THAN 0.02 NG/ML Urine Color LIGHT-YELLOW Urine Turbidity CLEAR Urine pH 6.0 Urine Specific [place] 1.010 Urine Protein NEG mg/dL Urine Glucose (UA) NEG mg/dL Urine Ketones NEG mg/dL Urine Occult Blood NEG Urine Nitrite NEG Urine Bilirubin NEG Urine Urobilinogen LESS THAN 2.0 MG/DL Urine Leukocyte Esterase TRACE Urine WBC 1 /hpf Urine Squamous Epithelial 1 /hpf Cells Microscopic Urinalysis Comment CULT NOT INDICATED MDM Medical Decision Making Medical Screen Exam Complete: Yes Emergency Medical Condition: Yes Interpretation(s) EKG at 0856: NSR at 62bpm, qt/qtc: 411/416, no acute st or t wave changes, normal axis Vital Signs Date Time Temp Pulse Resp B/P Pulse Ox O2 Delivery O2 Flow Rate FiO2 11/29/16 08:43 62 17 208/85 100 Room Air 11/29/16 08:24 98.9 74 20 234/102 100 Room Air Differential Diagnosis Differential includes hypertensive emergency versus hypertensive urgency, intracranial hemorrhage, CVA unlikely Narrative Course Patient is a 76-year-old female with history of hypertension, presents to emergency room with complaints of elevated blood pressure. Patient reports that she has noticed increased blood pressures over the past 2 weeks, or to your symptoms associated with headache, vision changes and dizziness. See her primary care doctor is Dr. Yeni Mahoney 2 days ago and she increased her lisinopril to 40mg which patient started yesterday. Patient reports that she still symptomatic is not feeling any better. She is also on amoxicillin as well as prednisone for ear infection, she started these antibiotics and steroids on November 23, 2016. Patient with no fevers or chills, no trauma. Patient was placed on a cardiac cath lab manager upon arrival to the emergency room. EKG obtained. Blood pressure is 208/85, IV hydralazine ordered. CT of the head , lab work including cardiac enzymes ordered to evaluate for end organ damage. We'll continue to monitor patient. Vital Signs Date Time Temp Pulse Resp B/P Pulse Ox O2 Delivery O2 Flow Rate FiO2 11/29/16 09:39 60 22 183/97 100 Room Air 11/29/16 08:57 100 Room Air 11/29/16 08:43 62 17 208/85 100 Room Air 11/29/16 08:24 98.9 74 20 234/102 100 Room Air Laboratory Tests Test 11/29/16 11/29/16 09:25 09:36 White Blood Count 10.4 TH/MM3 (4.0-11.0) Red Blood Count 4.14 MIL/MM3 (4.00-5.30) Hemoglobin 12.8 GM/DL (11.6-15.3) Hematocrit 38.7 % (35.0-46.0) Mean Corpuscular Volume 93.5 FL (80.0-100.0) Mean Corpuscular Hemoglobin 30.8 PG (27.0-34.0) Mean Corpuscular Hemoglobin 33.0 % Concent (32.0-36.0) Red Cell Distribution Width 15.7 % (11.6-17.2) Platelet Count 283 TH/MM3 (150-450) Mean Platelet Volume 8.0 FL (7.0-11.0) Neutrophils (%) (Auto) 75.7 % (16.0-70.0) Lymphocytes (%) (Auto) 17.4 % (9.0-44.0) Monocytes (%) (Auto) 6.1 % (0.0-8.0) Eosinophils (%) (Auto) 0.3 % (0.0-4.0) Basophils (%) (Auto) 0.5 % (0.0-2.0) Neutrophils # (Auto) 7.8 TH/MM3 (1.8-7.7) Lymphocytes # (Auto) 1.8 TH/MM3 (1.0-4.8) Monocytes # (Auto) 0.6 TH/MM3 (0-0.9) Eosinophils # (Auto) 0.0 TH/MM3 (0-0.4) Basophils # (Auto) 0.1 TH/MM3 (0-0.2) CBC Comment DIFF FINAL Differential Comment Prothrombin Time 10.2 SEC (9.8-11.6) Prothromb Time International 0.9 RATIO Ratio Activated Partial 25.8 SEC Thromboplast Time (24.3-30.1) Sodium Level 140 MEQ/L (136-145) Potassium Level 4.3 MEQ/L (3.5-5.1) Chloride Level 112 MEQ/L (98-107) Carbon Dioxide Level 22.2 MEQ/L (21.0-32.0) Anion Gap 6 MEQ/L (5-15) Blood Urea Nitrogen 29 MG/DL (7-18) Creatinine 1.21 MG/DL (0.50-1.00) Estimat Glomerular Filtration 43 ML/MIN (>89) Rate Random Glucose 85 MG/DL (74-106) Calcium Level 8.9 MG/DL (8.5-10.1) Total Creatine Kinase 49 U/L (26-192) Troponin I LESS THAN 0.02 NG/ML (0.02-0.05) Urine Color LIGHT-YELLOW (YELLW/STRAW) Urine Turbidity CLEAR (CLEAR) Urine pH 6.0 (5.0-8.5) Urine Specific [place] 1.010 (1.002-1.035) Urine Protein NEG mg/dL (NEG-TRACE) Urine Glucose (UA) NEG mg/dL (NEG) Urine Ketones NEG mg/dL (NEG) Urine Occult Blood NEG (NEG) Urine Nitrite NEG (NEG) Urine Bilirubin NEG (NEG) Urine Urobilinogen LESS THAN 2.0 MG/DL (LESS THAN 2.0) Urine Leukocyte Esterase TRACE (NEG) Urine WBC 1 /hpf (0-5) Urine Squamous Epithelial 1 /hpf (0-5) Cells Microscopic Urinalysis Comment CULT NOT INDICATED case reviewed with dr. daniels who accepts pt to service Diagnosis Primary Impression: Hypertensive urgency Additional Impression: Renal insufficiency Admitting Information Admitting Physician Requests: Admit Jeri Vera DO Nov 29, 2016 09:01
[2016-11-29 09:43] LABS: AUTOMATED NEUTROPHIL # 7.8 TH/MM3 (1.8-7.7); BASOPHIL # 0.1 TH/MM3 (0-0.2); BASOPHIL % 0.5 % (0.0-2.0); EOSINOPHIL % 0.3 % (0.0-4.0); HEMATOCRIT 38.7 % (35.0-46.0); HEMO FLAGS DIFF FINAL; LYMPH % 17.4 % (9.0-44.0); LYMPHOCYTE # 1.8 TH/MM3 (1.0-4.8); MEAN CELL VOLUME 93.5 FL (80.0-100.0); MEAN CORPUSCULAR HEMOGLOBIN 30.8 PG (27.0-34.0); MONO % 6.1 % (0.0-8.0); NEUT % 75.7 % (16.0-70.0); PLATELET COUNT 283 TH/MM3 (150-450); RED BLOOD COUNT 4.14 MIL/MM3 (4.00-5.30); RED CELL DISTRIBUTION WIDTH 15.7 % (11.6-17.2); WHITE BLOOD COUNT 10.4 TH/MM3 (4.0-11.0)
[2016-11-29 09:51] LABS: APTT (PATIENT) 25.8 SEC (24.3-30.1); INTERNATIONAL NORMALIZED RATIO 0.9 RATIO; PROTHROMBIN TIME - PATIENT 10.2 SEC (9.8-11.6)
[2016-11-29 09:56] LABS: ANION GAP 6 MEQ/L (5-15); BICARBONATE 22.2 MEQ/L (21.0-32.0); BLOOD UREA NITROGEN 29 MG/DL (7-18); CHLORIDE 112 MEQ/L (98-107); GLOMERULAR FILTRATION RATE 43 ML/MIN (>89); POTASSIUM 4.3 MEQ/L (3.5-5.1); SODIUM (NA) 140 MEQ/L (136-145)
[2016-11-29 09:56] LABS: BLOOD, URINE NEG (NEG); COMMENT (UR) CULT NOT INDICATED; CULTURE IF INDICATED CULT NOT INDICATED; GLUCOSE,URINE NEG (NEG); KETONE, URINE NEG (NEG); NITRITE,URINE NEG (NEG); SQUAMOUS EPITHELIAL CELL URINE 1 /hpf (0-5); URINE COLOR LIGHT-YELLOW (YELLW/STRAW)
[2016-11-29 10:02] LABS: CREATINE KINASE 49 U/L (26-192)
--- NOTE | 2016-11-29 10:43 | RADRPT ---
EXAM DATE/TIME: 11/29/2016 10:28 [place] COMPARISON: No previous studies available for comparison. INDICATIONS : Headache, dizzy. RADIATION DOSE: 29.64 CTDIvol (mGy) MEDICAL HISTORY : Cardiovascular disease. Hypertension. Asthma. Pmacreatic tumor. SURGICAL HISTORY : Cholecystectomy. Knee surgery. ENCOUNTER: Initial ACUITY: 1 day PAIN SCALE: 3/10 LOCATION: cranial TECHNIQUE: Multiple contiguous axial images were obtained of the head. Using automated exposure control and adj ustment of the mA and/or kV according to patient size, radiation dose was kept as low as reasonably a chievable to obtain optimal diagnostic quality images. DICOM format image data is available electro nically for review and comparison. FINDINGS: CEREBRUM: The ventricles are normal for age. No evidence of midline shift, mass lesion, hemorrhage or acute in farction. No extra-axial fluid collections are seen. POSTERIOR FOSSA: The cerebellum and brainstem are intact. The 4th ventricle is midline. The cerebellopontine angle i s unremarkable. EXTRACRANIAL: The visualized portion of the orbits is intact. SKULL: The calvaria is intact. No evidence of skull fracture. CONCLUSION: Unremarkable exam. No evidence of acute infarct, hemorrhage, mass or edema. Papo Gimenez MD on November 29, 2016 at 10:41 Board Certified Radiologist. This report was verified electronically.
[2016-11-29] MEDS ORDERED: SODIUM CHLORIDE 0.9% FLUSH 10 ML FLUSH IV FLUSH PRN (11:00)
[2016-11-29] MEDS ORDERED: ENALAPRILAT 1.25 MG/ML VIAL IV PRN (11:00)
[2016-11-29] MEDS ORDERED: LABETALOL HCL 100 MG/20 ML VIAL IV PRN (11:00)
[2016-11-29] MEDS: amLODIPine BESYLATE 5 MG TAB PO SCH (12:27)
[2016-11-29] MEDS: LISINOPRIL 20 MG TAB PO SCH (12:27)
--- NOTE | 2016-11-29 12:42 | EKG ---
Date Performed: 11/29/2016 Time Performed: 08:56:27 PTAGE: 76 years EKG: Sinus rhythm Compared to prior tracing no significant change NORMAL ECG INTERPRETATION BASED ON A DEFAULT AGE OF 42 YEARS PREVIOUS TRACING : 07/10/2016 12.16 DOCTOR: Sergio Valencia Interpretating Date/Time 11/29/2016 12:35:06
[2016-11-29 12:43] LABS: HDL CHOLESTEROL 53.7 MG/DL (40.0-60.0)
[2016-11-29] MEDS: HYDROCHLOROTHIAZIDE 12.5 MG CAP PO SCH (13:22)
[2016-11-29] MEDS ORDERED: RESP: ALBUTEROL 2.5 MG/IPRATROPIUM 0.5 MG NEB (PRN) NEB (14:00)
--- NOTE | 2016-11-29 14:06 | HHI.HP ---
HPI Service [facility] Hospitalists Primary Care Physician Non-Staff Admission Diagnosis Hypertensive Urgency Diagnoses: Chief Complaint: Headache Blurry vision Dizziness Travel History International Travel<30 Days: No Contact w/Intl Traveler <30 Da: No Traveled to Known Affected Are: No History of Present Illness This is a 76-year-old Wallisian speaking female with a past medical history of hypertension, asthma, scleroderma and GERD who presents to [facility] ED with complaints of headache, dizziness and blurry vision for the past week. A Wallisian speaking ED nurse was able to offer her translation services to obtain the history and physical. Patient states she was seen by her primary care physician Wednesday for poorly controlled blood pressure and her Lisinopril dose was increased to 40 mg daily which she began yesterday. However, she's continued to have the above complaints and decided to come into the ED for further evaluation and treatment. Additionally, she complains of left-sided neck and upper back pain that has been ongoing for the past week. She also reports a left ear infection that his treatment been treated with amoxicillin and prednisone which she started on Wednesday11/23/16 with some improvement. She denies any associated fever, chills, nausea, vomiting, weakness, slurred speech , palpitations, chest pain or abdominal pain. She denies any previous history of TIA and/or CVA. Upon her presentation to the ED, her blood pressure was extremely uncontrolled at 234/102. Patient was treated with hydralazine IV as well as by mouth Norvasc and lisinopril with improvement in her blood pressure to 165/98. Chemistries revealed acute kidney injury with creatinine of 1.21 and GFR 43. CBC revealed a normal white count as well as normal hemoglobin and hematocrit. UA was unremarkable. CT of the head was obtained which showed no evidence of acute infarct, hemorrhage, mass or edema. Review of Systems Except as stated in HPI: all other systems reviewed are Neg Past Family Social History Past Medical History Hypertension Scleroderma Asthma GERD Benign pancreatic tumor Past Surgical History Cholecystectomy Bilateral total knee replacements Appendectomy Hysterectomy Reported Medications Amoxicillin 500 Mg Tab 500 Mg PO BID Methotrexate 2.5 Mg Tab 8 Tab PO Q7D Lisinopril 40 Mg Tab 40 Mg PO DAILY Prednisone 5 Mg Tab 5 Mg PO DAILY Allergies: Coded Allergies: Iodine (Verified Allergy, Severe, 11/29/16) Active Ordered Medications Current Medications Medications (Trade) Dose Ordered Sig/Karina Route Start Time Stop Time Status Last Admin (NS Flush) 2 ml UNSCH PRN IV FLUSH 11/29/16 11:00 (NS Flush) 2 ml BID IV FLUSH 11/29/16 21:00 (Vasotec Inj) 1.25 mg Q6H PRN IV 11/29/16 11:00 (Trandate Inj) 10 mg Q6H PRN IV 11/29/16 11:00 (Norvasc) 5 mg DAILY PO 11/29/16 12:00 11/29/16 12:27 (Microzide) 12.5 mg DAILY PO 11/29/16 12:00 11/29/16 13:22 (Prinivil) 40 mg DAILY PO 11/29/16 12:00 11/29/16 12:27 Family History Hypertension Father, heart disease Social History Patient denies any tobacco use, alcohol consumption or illicit drug use. Patient recently lost her of 51 years this past May. Physical Exam Vital Signs Vital Signs Date Time Temp Pulse Resp B/P Pulse Ox O2 Delivery O2 Flow Rate FiO2 11/29/16 12:26 76 22 165/98 98 Room Air 11/29/16 11:03 73 24 162/70 100 Room Air 11/29/16 09:39 60 22 183/97 100 Room Air 11/29/16 08:57 100 Room Air 11/29/16 08:43 62 17 208/85 100 Room Air 11/29/16 08:24 98.9 74 20 234/102 100 Room Air Physical Exam GENERAL: This is a well-nourished, well-developed patient, in no apparent distress. Awake and alert. SKIN: No rashes, ecchymoses or lesions. Warm and dry. HEAD: Atraumatic. Normocephalic. (+)tenderness to palpation over left side of scalp/head. EYES: Pupils equal round and reactive. Extraocular motions intact. No scleral icterus. No injection or drainage. ENT: Nose without bleeding, purulent drainage or septal hematoma. Throat without erythema, tonsillar hypertrophy or exudate. Uvula midline. Airway patent. NECK: Trachea midline. No JVD or lymphadenopathy. Supple, nontender, no meningeal signs. (+)tenderness to palpation over left side of neck. CARDIOVASCULAR: Regular rate and rhythm without murmurs, gallops, or rubs. RESPIRATORY: Clear to auscultation. Breath sounds equal bilaterally. No wheezes , rales, or rhonchi. GASTROINTESTINAL: Abdomen soft, non-tender, nondistended. No hepato-splenomegaly , or palpable masses. No guarding. MUSCULOSKELETAL: (+)tenderness to palpation left periscapular/upper back. Extremities without clubbing or cyanosis. Trace edema noted BLE. No joint tenderness, effusion, or edema noted. No calf tenderness. NEUROLOGICAL: Awake and alert. Able to move all extremities. No focal neurologic deficits appreciated. Motor and sensory grossly intact. Normal speech. Laboratory Laboratory Tests Test 11/29/16 11/29/16 11/29/16 09:25 09:36 12:17 White Blood Count 10.4 Red Blood Count 4.14 Hemoglobin 12.8 Hematocrit 38.7 Mean Corpuscular Volume 93.5 Mean Corpuscular Hemoglobin 30.8 Mean Corpuscular Hemoglobin 33.0 Concent Red Cell Distribution Width 15.7 Platelet Count 283 Mean Platelet Volume 8.0 Neutrophils (%) (Auto) 75.7 Lymphocytes (%) (Auto) 17.4 Monocytes (%) (Auto) 6.1 Eosinophils (%) (Auto) 0.3 Basophils (%) (Auto) 0.5 Neutrophils # (Auto) 7.8 Lymphocytes # (Auto) 1.8 Monocytes # (Auto) 0.6 Eosinophils # (Auto) 0.0 Basophils # (Auto) 0.1 CBC Comment DIFF FINAL Differential Comment Prothrombin Time 10.2 Prothromb Time International 0.9 Ratio Activated Partial 25.8 Thromboplast Time Sodium Level 140 Potassium Level 4.3 Chloride Level 112 Carbon Dioxide Level 22.2 Anion Gap 6 Blood Urea Nitrogen 29 Creatinine 1.21 Estimat Glomerular Filtration 43 Rate Random Glucose 85 Calcium Level 8.9 Total Creatine Kinase 49 Troponin I LESS THAN 0.02 Urine Color LIGHT-YELLOW Urine Turbidity CLEAR Urine pH 6.0 Urine Specific [place] 1.010 Urine Protein NEG Urine Glucose (UA) NEG Urine Ketones NEG Urine Occult Blood NEG Urine Nitrite NEG Urine Bilirubin NEG Urine Urobilinogen LESS THAN 2.0 Urine Leukocyte Esterase TRACE Urine WBC 1 Urine Squamous Epithelial 1 Cells Microscopic Urinalysis Comment CULT NOT INDICATED Triglycerides Level 97 Cholesterol Level 169 LDL Cholesterol 96 HDL Cholesterol 53.7 Cholesterol/HDL Ratio 3.14 Result Diagram: 11/29/1625 11/29/16 09 Imaging Last Impressions Head CT 11/29/16 0854 Signed Impressions: Service Date/Time: Tuesday, November 29, 2016 10:28 - CONCLUSION: Unremarkable exam. No evidence of acute infarct, hemorrhage, mass or edema. Papo Gimenez MD Assessment and Plan Assessment and Plan 76-year-old Wallisian speaking female with a past medical history of hypertension , asthma, scleroderma and GERD who presents to [facility] ED with complaints of headache, dizziness and blurry vision for the past week found to have uncontrolled hypertension with BP 234/102 . Hypertensive encephalopathy Hypertensive emergency - BP 234/102 at presentation to the ED, BP improved to 165/98 - CT head, images personally reviewed, unremarkable exam - Continue home medication lisinopril 40 mg daily - Begin Norvasc 5 mg daily and HCTZ 12.5mg daily - Labetalol IV every 6 when necessary, Vasotec 1.25 mg IV every 6 when necessary - check Troponin level - continuous cardiac monitoring - check TSH level Hypertensive nephropathy - Creatinine elevated 1.21. 0.96 appears to be near baseline. - avoid nephrotoxic agents - Blood pressure control - Repeat BMP in a.m. to monitor trend Left ear infection - improving per patient report - Continue on previously prescribed Amoxicillin Scleroderma - Continue on home medication of methotrexate 20mg q 7 days- dose due yesterday - Continue on home medication Prednisone 5mg daily Asthma - Not in exacerbation - DuoNeb's when necessary Left sided neck/upper back pain - likely musculoskeletal - K Thermia pad - trial Lidoderm patch GERD GI prophylaxis - Protonix DVT prophylaxis - SCD/MARIAN hose - Heparin sq Discussed with nursing staff, patient, Kulwinder (patients son) and Dr. Mcgrath Attestation Patient seen and examined with Wendy Palma PA-C. The exam, history, and the medical decision-making described in the above note were completed with the assistance of the dictating practitioner. I attest that I had a [id number] encounter with the patient on the same day, and personally performed all of the history, exam, or medical decision making. Discussed case with her thoroughly after seeing the patient, reviewed and agreed with the plan. Please see addendum in History, Physical examination. See below for any errata/additional input: This is a 76-year-old Wallisian speaking female with a past medical history of hypertension, asthma, scleroderma and GERD who presents to [facility] ED with complaints of headache, dizziness and blurry vision for the past week. History done with the help of a Wallisian speaking nurse. Presently, she has a mild headache but improving. Blood pressure is better. She was on lisinopril but it was increased to 40 mg daily but because of ongoing headache and dizziness, she decided to go to the hospital. Not in distress Regular rate and rhythm Clear breath sounds Abdomen soft nontender No edema Alert, awake, oriented 3, no focal deficits. EKG showed sinus rhythm. Hypertensive emergency with hypertensive encephalopathy and nephropathy- continue lisinopril, start Norvasc, hydrochlorothiazide, Vasotec as needed. Check urinalysis. CT scan of the head unremarkable. Agree with checking TSH, restart amoxicillin and prednisone for ear infection. Discharge when medically ready Physician Certification 2 Midnight Certification Type: Admission for Inpatient Services Order for Inpatient Services The services are ordered in accordance with Medicare regulations or non- Medicare payer requirements, as applicable. In the case of services not specified as inpatient-only, they are appropriately provided as inpatient services in accordance with the 2-midnight benchmark. Estimated LOS (days): 2 days is the estimated time the patient will need to remain in the hospital, assuming treatment plan goals are met and no additional complications. Post-Hospital Plan: Home Wendy Palma Nov 29, 2016 14:06 Robbie Mcgrath MD Nov 29, 2016 18:18
[2016-11-29] MEDS ORDERED: ACETAMIN 325 MG/BUTALBITAL 50 MG/CAFFEINE 40 MG TAB PO ONE (14:15)
[2016-11-29] MEDS: PANTOPRAZOLE SOD 20 MG DELAYED RELEASE TAB PO SCH (14:43)
[2016-11-29] MEDS ORDERED: ACETAMINOPHEN 325 MG TAB PO PRN (15:30)
[2016-11-29] MEDS ORDERED: METHOTREXATE 2.5 MG TAB PO SCH (16:00)
[2016-11-29] MEDS: ACETAMINOPHEN 325 MG TAB PO PRN (21:33)
[2016-11-29] MEDS: SODIUM CHLORIDE 0.9% FLUSH 10 ML FLUSH IV FLUSH SCH (21:34)
[2016-11-29] MEDS: HEPARIN SODIUM - SQ 10,000 UNITS/ML VIAL SQ SCH (21:44)
[2016-11-30] VITALS: BP 128/63; PULSE 69; RESP 18; TEMP 97.3; O2SAT 100
[2016-11-30] MEDS: AMOXICILLIN (TRIHYDRATE) 500 MG CAP PO SCH ×3 (00:31→20:43)
[2016-11-30 04:00] VITALS: BP 137/80; PULSE 79; RESP 18; TEMP 98.8; O2SAT 99
[2016-11-30] MEDS: ACETAMINOPHEN 325 MG TAB PO PRN ×2 (05:23→19:12)
[2016-11-30] MEDS: HEPARIN SODIUM - SQ 10,000 UNITS/ML VIAL SQ SCH ×3 (05:24→20:44)
[2016-11-30 08:04] VITALS: BP 139/71; PULSE 67; RESP 18; TEMP 98.4; O2SAT 99
[2016-11-30] MEDS: HYDROCHLOROTHIAZIDE 12.5 MG CAP PO SCH (09:05)
[2016-11-30] MEDS: amLODIPine BESYLATE 5 MG TAB PO SCH (09:05)
[2016-11-30] MEDS: LISINOPRIL 20 MG TAB PO SCH (09:05)
[2016-11-30] MEDS: PANTOPRAZOLE SOD 20 MG DELAYED RELEASE TAB PO SCH (09:05)
[2016-11-30] MEDS: predniSONE 5 MG TAB PO SCH (09:05)
[2016-11-30] MEDS: LIDOCAINE HCL 5% PATCH T-DERMAL SCH (09:11)
[2016-11-30] MEDS: SODIUM CHLORIDE 0.9% FLUSH 10 ML FLUSH IV FLUSH SCH ×2 (09:12→20:43)
[2016-11-30 11:09] LABS: HEMATOCRIT 36.8 % (35.0-46.0); MEAN CELL VOLUME 92.5 FL (80.0-100.0); MEAN CORPUSCULAR HEMOGLOBIN 30.4 PG (27.0-34.0); MEAN CORPUSCULAR HGB CONC 32.9 % (32.0-36.0); PLATELET COUNT 289 TH/MM3 (150-450); RED BLOOD COUNT 3.98 MIL/MM3 (4.00-5.30); RED CELL DISTRIBUTION WIDTH 15.2 % (11.6-17.2); WHITE BLOOD COUNT 8.2 TH/MM3 (4.0-11.0)
[2016-11-30 11:10] LABS: HEMO FLAGS AUTO DIFF
[2016-11-30] MEDS ORDERED: AMLO5 PO (11:17)
[2016-11-30] MEDS ORDERED: LIDO5DIS5 T-DERMAL (11:17)
[2016-11-30] MEDS ORDERED: HYDR12.57 PO (11:17)
--- NOTE | 2016-11-30 11:18 | HHI.DCPOC ---
Discharge Care Plan Diagnosis: (1) Hypertensive urgency Goals to Promote Your Health * To prevent worsening of your condition and complications * To maintain your health at the optimal level Directions to Meet Your Goals Take your medications as prescribed Follow your dietary instruction Follow activity as directed Keep your appointments as scheduled Take your immunizations and boosters as scheduled If your symptoms worsen call your PCP, if no PCP go to Urgent Care Center or Emergency Room Smoking is Dangerous to Your Health. Avoid second hand smoke Call the 24-hour hour crisis hotline for domestic abuse at Imelda Jolley MD Nov 30, 2016 11:18
[2016-11-30 11:37] LABS: BANDS 1 % (0-6); NEUTROPHIL # MANUAL DIFF 6.7 TH/MM3 (1.8-7.7); OVALOCYTES 1+ (NORMAL); PLATELET ESTIMATE SMEAR NORMAL (NORMAL); PLATELET MORPHOLOGY NORMAL (NORMAL); POLYS (SEG NEUTROPHILS) 81 % (16-70); SCAN/DIFF FINAL DIFF MANUAL; WBC DIFF SAMPLE 100
[2016-11-30 11:56] VITALS: BP 125/59; PULSE 85; RESP 18; TEMP 97.4; O2SAT 100
[2016-11-30 12:07] LABS: BICARBONATE 16.7 MEQ/L (21.0-32.0)
[2016-11-30 12:08] LABS: POTASSIUM 6.3 MEQ/L (3.5-5.1)
[2016-11-30 15:26] LABS: BICARBONATE 20.4 MEQ/L (21.0-32.0); POTASSIUM 4.3 MEQ/L (3.5-5.1)
--- NOTE | 2016-11-30 15:28 | HHI.PR ---
Subjective Remarks Follow-up for hypertensive urgency Patient is Urdu-speaking only. Bedside video online historical interpreter use. Patient's son is also at the bedside and he speaks Mohawk. Blood pressure control. Patient denies any symptoms she feels like she is at her baseline. Denies any chest pain, palpitation, shortness of breathing, lightheadedness or dizziness. Patient very anxious to go home. Objective Vitals Vital Signs Date Time Temp Pulse Resp B/P Pulse Ox O2 Delivery O2 Flow Rate FiO2 11/30/16 11:56 97.4 85 18 125/59 100 11/30/16 08:04 98.4 67 18 139/71 99 11/30/16 04:00 98.8 79 18 137/80 99 11/30/16 00:00 97.3 69 18 128/63 100 11/29/16 21:30 98.0 79 19 181/83 100 11/29/16 20:00 97.2 73 18 131/64 100 11/29/16 16:00 98.3 69 18 159/70 100 I/O 11/29/16 11/29/16 11/29/16 11/30/16 11/30/16 11/30/16 06:59 14:59 22:59 06:59 14:59 22:59 Intake Total 600 ml Balance 600 ml Intake Oral 600 ml # Voids 2 1 4 Result Diagram: 11/30/16 1100 11/30/16 1405 Objective Remarks GENERAL: in NAD CARDIOVASCULAR: Regular rate and rhythm without murmurs, gallops, or rubs. RESPIRATORY: Breath sounds equal bilaterally. No accessory muscle use. GASTROINTESTINAL: Abdomen soft, non-tender, nondistended. MUSCULOSKELETAL: No cyanosis, or edema. BACK: Nontender without obvious deformity. No CVA tenderness. Medications and IVs Current Medications Hydralazine HCl (Apresoline Inj) 10 mg ONCE ONCE IV PUSH Last administered on 11/29/16 09:35; Start 11/29/16 at 09:00; Stop 11/29/16 at 09:01; Status DC Sodium Chloride (NS Flush) 2 ml UNSCH PRN IV FLUSH FLUSH AFTER USING IV ACCESS ; Start 11/29/16 at 11:00 Sodium Chloride (NS Flush) 2 ml BID IV FLUSH Last administered on 11/30/16 09: 12; Start 11/29/16 at 21:00 Enalaprilat (Vasotec Inj) 1.25 mg Q6H PRN IV SEE LABEL COMMENTS Last administered on 11/29/16 21:44; Start 11/29/16 at 11:00 Labetalol HCl (Trandate Inj) 10 mg Q6H PRN IV SEE LABEL COMMENTS; Start at 11:00 Amlodipine Besylate (Norvasc) 5 mg DAILY PO Last administered on 11/30/16 09: 05; Start 11/29/16 at 12:00 Hydrochlorothiazide (Microzide) 12.5 mg DAILY PO Last administered on 09:05; Start 11/29/16 at 12:00 Lisinopril (Prinivil) 40 mg DAILY PO Last administered on 11/30/16 09:05; Start 11/29/16 at 12:00 Albuterol/ Ipratropium (Duoneb Neb) 1 ampule Q6HR NEB PRN NEB COUGH, SOB; Start 11/29/16 at 14:00 Amoxicillin (Trimox) 500 mg BID PO Last administered on 11/30/16 09:04; Start 11/29/16 at 21:00 Prednisone (Deltasone) 5 mg DAILY PO Last administered on 11/30/16 09:05; Start 11/30/16 at 09:00 Methotrexate (Rheumatrex) 20 mg Q7D PO Last administered on 11/29/16 18:08; Start 11/29/16 at 16:00 Acetaminophen/ Butalbital/ Caffeine (Fioricet 325-50-40) 1 tab ONCE ONCE PO Last administered on 11/29/16 14:43; Start 11/29/16 at 14:15; Stop 11/29/16 at 14:27; Status DC Pantoprazole Sodium (Protonix) 20 mg DAILY PO Last administered on 11/30/16 09 :05; Start 11/29/16 at 14:30 Acetaminophen (Tylenol) 650 mg Q4H PRN PO PAIN SCALE 1 TO 2; Start 11/29/16 at 15:30; Stop 11/29/16 at 19:14; Status DC Heparin Sodium (Porcine) (Heparin Inj) 5,000 units Q8HR SQ Last administered on 11/30/16 14:06; Start 11/29/16 at 22:00 Acetaminophen (Tylenol) 650 mg Q4H PRN PO pain 1- 5 and headache Last administered on 11/30/16 05:23; Start 11/29/16 at 18:30 Lidocaine HCl (Lidoderm 5% Patch.12 Hr) 1 patch DAILY T-DERMAL Last administered on 11/30/16 09:11; Start 11/30/16 at 09:00 Miscellaneous Information 1 HS T-DERMAL ; Start 11/29/16 at 21:00 A/P Assessment and Plan 76-year-old Urdu speaking female with a past medical history of hypertension , asthma, scleroderma and GERD who presents to [facility] ED with complaints of headache, dizziness and blurry vision for the past week found to have uncontrolled hypertension with BP 234/102 . Hypertensive urgency - BP 234/102 at presentation to the ED, BP improved to 165/98 - CT head, images personally reviewed, unremarkable exam. Troponins negative. - Continue home medication lisinopril 40 mg daily - on Norvasc 5 mg daily and HCTZ 12.5mg daily and blood pressure is now controlled. - Labetalol IV every 6 when necessary, Vasotec 1.25 mg IV every 6 when necessary Hypertensive nephropathy - Creatinine elevated 1.21. 0.96 appears to be near baseline. - avoid nephrotoxic agents - Blood pressure control - BMP repeated which shows some hemolysis and elevated potassium. Will repeat BMP stat. Left ear infection - improving per patient report - Continue on previously prescribed Amoxicillin Scleroderma - Continue on home medication of methotrexate 20mg q 7 days- dose due yesterday - Continue on home medication Prednisone 5mg daily Asthma - Not in exacerbation - DuoNeb's when necessary Left sided neck/upper back pain - likely musculoskeletal - K Thermia pad - trial Lidoderm patch GERD GI prophylaxis - Protonix DVT prophylaxis - SCD/MARIAN hose - Heparin sq Discharge Planning If BMP is stable or improved patient can be discharged home with follow-up with PCP pending results. Imelda Jolley MD Nov 30, 2016 15:28
[2016-11-30 15:56] VITALS: BP 110/62; PULSE 77; RESP 18; TEMP 98.4; O2SAT 98
[2016-11-30] MEDS: SODIUM CHLOR 0.9% 1000 ML INJ 1,000 ML IV SCH (19:10)
--- NOTE | 2016-11-30 19:48 | EKG ---
Date Performed: 11/29/2016 Time Performed: 17:18:53 PTAGE: 76 years EKG: Sinus rhythm NONSPECIFIC T-WAVE ABNORMALITY BORDERLINE ECG PREVIOUS TRACING : 11/29/2016 08.56 Since previous tracing, no significant change noted DOCTOR: Isadora Romero Interpretating Date/Time 11/30/2016 19:47:25
[2016-11-30 20:12] VITALS: BP 119/58; PULSE 61; RESP 18; TEMP 97.5; O2SAT 98
[2016-11-30] MEDS: REMOVE OLD LIDOCAINE PATCH T-DERMAL SCH (20:44)
[2016-12-01] VITALS: BP 114/52; PULSE 73; RESP 20; TEMP 98.2; O2SAT 98
[2016-12-01 03:17] VITALS: PULSE 78
[2016-12-01 04:00] VITALS: BP 116/64; PULSE 74; RESP 20; TEMP 98.1; O2SAT 99
[2016-12-01] MEDS: SODIUM CHLOR 0.9% 1000 ML INJ 1,000 ML IV SCH (06:12)
[2016-12-01] MEDS: HEPARIN SODIUM - SQ 10,000 UNITS/ML VIAL SQ SCH (06:12)
[2016-12-01 07:07] VITALS: PULSE 56
[2016-12-01 07:58] VITALS: BP 118/57; PULSE 67; RESP 20; TEMP 97.6; O2SAT 99
[2016-12-01] MEDS: PANTOPRAZOLE SOD 20 MG DELAYED RELEASE TAB PO SCH (08:11)
[2016-12-01] MEDS: AMOXICILLIN (TRIHYDRATE) 500 MG CAP PO SCH (08:11)
[2016-12-01] MEDS: predniSONE 5 MG TAB PO SCH (08:11)
[2016-12-01] MEDS: LISINOPRIL 20 MG TAB PO SCH (08:11)
[2016-12-01] MEDS: amLODIPine BESYLATE 5 MG TAB PO SCH (08:11)
[2016-12-01] MEDS: SODIUM CHLORIDE 0.9% FLUSH 10 ML FLUSH IV FLUSH SCH (08:12)
[2016-12-01] MEDS: LIDOCAINE HCL 5% PATCH T-DERMAL SCH (08:15)
[2016-12-01 09:07] LABS: BICARBONATE 17.8 MEQ/L (21.0-32.0); POTASSIUM 4.7 MEQ/L (3.5-5.1)
--- NOTE | 2016-12-01 11:18 | HHI.DS ---
Discharge Summary Admission Date Nov 29, 2016 at 11:03 Discharge Date: Dec 01, 2016 Admitting Diagnosis Hypertensive Urgency Hypertensive nephropathy (1) Mild dehydration ICD Code: E86.0 (2) Hypertensive urgency ICD Code: I16.0 (3) Renal insufficiency ICD Code: N28.9 (4) Hypertensive nephropathy ICD Code: I12.9 Procedures None Brief History - From Admission This is a 76-year-old Burundian speaking female with a past medical history of hypertension, asthma, scleroderma and GERD who presents to [facility] ED with complaints of headache, dizziness and blurry vision for the past week. A Burundian speaking ED nurse was able to offer her translation services to obtain the history and physical. Patient states she was seen by her primary care physician Wednesday for poorly controlled blood pressure and her Lisinopril dose was increased to 40 mg daily which she began yesterday. However, she's continued to have the above complaints and decided to come into the ED for further evaluation and treatment. Additionally, she complains of left-sided neck and upper back pain that has been ongoing for the past week. She also reports a left ear infection that his treatment been treated with amoxicillin and prednisone which she started on Wednesday11/23/16 with some improvement. She denies any associated fever, chills, nausea, vomiting, weakness, slurred speech , palpitations, chest pain or abdominal pain. She denies any previous history of TIA and/or CVA. Upon her presentation to the ED, her blood pressure was extremely uncontrolled at 234/102. Patient was treated with hydralazine IV as well as by mouth Norvasc and lisinopril with improvement in her blood pressure to 165/98. Chemistries revealed acute kidney injury with creatinine of 1.21 and GFR 43. CBC revealed a normal white count as well as normal hemoglobin and hematocrit. UA was unremarkable. CT of the head was obtained which showed no evidence of acute infarct, hemorrhage, mass or edema. CBC/BMP: 11/30/16 1100 12/01/16 0750 Significant Findings Laboratory Tests Test 11/29/16 11/29/16 11/29/16 11/30/16 09:25 09:36 13:55 11:00 Neutrophils (%) (Auto) 75.7 % (16.0-70.0) Neutrophils # (Auto) 7.8 TH/MM3 (1.8-7.7) Chloride Level 112 MEQ/L 113 MEQ/L (98-107) (98-107) Blood Urea Nitrogen 29 MG/DL (7-18) 33 MG/DL (7-18) Creatinine 1.21 MG/DL 1.27 MG/DL (0.50-1.00) (0.50-1.00) Estimat Glomerular Filtration 43 ML/MIN (>89) 41 ML/MIN (>89) Rate Troponin I LESS THAN 0.02 LESS THAN 0.02 NG/ML NG/ML (0.02-0.05) (0.02-0.05) Urine Leukocyte Esterase TRACE (NEG) Thyroid Stimulating Hormone 0.357 uIU/ML 3rd Gen (0.358-3.740) Red Blood Count 3.98 MIL/MM3 (4.00-5.30) Neutrophils % (Manual) 81 % (16-70) Ovalocytes 1+ (NORMAL) Potassium Level 6.3 MEQ/L (3.5-5.1) Carbon Dioxide Level 16.7 MEQ/L (21.0-32.0) Test 11/30/16 12/01/16 14:05 07:50 Chloride Level 111 MEQ/L 113 MEQ/L (98-107) (98-107) Carbon Dioxide Level 20.4 MEQ/L 17.8 MEQ/L (21.0-32.0) (21.0-32.0) Blood Urea Nitrogen 33 MG/DL (7-18) 33 MG/DL (7-18) Creatinine 1.38 MG/DL 1.19 MG/DL (0.50-1.00) (0.50-1.00) Estimat Glomerular Filtration 37 ML/MIN (>89) 44 ML/MIN (>89) Rate Random Glucose 114 MG/DL (74-106) Calcium Level 8.3 MG/DL (8.5-10.1) Imaging Last Impressions Head CT 11/29/16 0836 Signed Impressions: Service Date/Time: Tuesday, November 29, 2016 10:28 - CONCLUSION: Unremarkable exam. No evidence of acute infarct, hemorrhage, mass or edema. Papo Gimenez MD PE at Discharge GENERAL: Well-developed well-nourished elderly female in NAD. Awake and alert. Son at the bedside. CARDIOVASCULAR: Regular rate and rhythm without murmurs, gallops, or rubs. RESPIRATORY: Breath sounds equal bilaterally. No accessory muscle use. GASTROINTESTINAL: Abdomen soft, non-tender, nondistended. MUSCULOSKELETAL: No cyanosis, or edema. BACK: Nontender without obvious deformity. No CVA tenderness. Pt update on day of discharge Patient is Burundian-speaking only. Son who is Burundian-speaking and is at the bedside. Patient and son refused utilization of translation services. Son acted as special delivery messenger. Patient denies any complaints. She denies headache or dizziness. No palpitations, chest pain or shortness of breath. Denies any nausea vomiting or abdominal pain. Hospital Course Patient presented to [facility] ED with complaints of dizziness and blurry vision for the past week he was found to be in hypertensive urgency with a blood pressure of 234/102 and evidence of renal insufficiency. CT scan of the head obtained in the ED was unremarkable. Patient was started on Norvasc 5 mg daily as well as hydrochlorothiazide 12.5 mg daily and continued on her home medication of lisinopril 40 mg daily. She is also treated with labetalol and Vasotec IV when necessary. She was continued on her home medications for treatment of her scleroderma. She is also continued on Augmentin that had been started as an outpatient for treatment of left ear infection. Troponin level was negative. TSH level was low at 0.357 but free T4 was normal. Patient a bump in her creatinine and therefore the hydrochlorothiazide was held. She also had a mildly elevated potassium but likely due to hemolysis and repeat potassium was 4.7. Serial BMPs were obtained which revealed significant improvement in her creatinine function to 1.19 prior to discharge. Blood pressure improved significantly and was 118/57 at the time of her discharge. Patient was seen and examined on the day of discharge. She was discharged home in satisfactory condition. She was instructed to follow-up with her PCP in one week following her discharge. Pt Condition on Discharge: Good Discharge Disposition: Discharge Home Discharge Time: > 30 minutes Discharge Instructions DIET: Follow Instructions for: Heart Healthy Diet Activities you can perform: Regular-No Restrictions Follow up Referrals: PCP Follow-up - 1 Week New Medications: Amlodipine (Norvasc) 5 Mg Tab 5 MG PO DAILY hypertension #30 Ref 0 TAB Hydrochlorothiazide (Hydrochlorothiazide) 12.5 Mg Cap 12.5 MG PO DAILY hypertension #30 Ref 0 CAP Lidocaine (Lidoderm) 5 % Adh..patch 1 PATCH T-DERMAL DAILY PRN pain #30 Ref 0 PATCH Continued Medications: Amoxicillin (Amoxicillin) 500 Mg Tab 500 MG PO BID Infection Ref 0 TAB Lisinopril (Lisinopril) 40 Mg Tab 40 MG PO DAILY Blood Pressure Management #30 Ref 0 TAB Methotrexate (Methotrexate) 2.5 Mg Tab 8 TAB PO Q7D Ref 0 TAB Prednisone (Prednisone) 5 Mg Tab 5 MG PO DAILY Ref 0 TAB Additional Information The exam, history, and the medical decision-making described in the above note were completed with the assistance of the mid-level provider. I reviewed and agree with the findings presented. I attest that I had a [id number] encounter with the patient on the same day, and personally performed and documented my assessment and findings in the medical record. During the interview her son translated. She declined senior medical transcriptionist. Patient had a relatively uncommon care hospital course in which she was admitted due to hypertensive urgency with some renal sufficiency. Blood pressure improved with treatment easily. Renal function fluctuated so she was put on IVFs and renal function improved drastically. Throughout hospital course patient had good urine output and she was asymptomatic. GENERAL: in NAD SKIN: Warm and dry. HEAD: Normocephalic. EYES: No scleral icterus. No injection or drainage. NECK: Supple, trachea midline. No JVD or lymphadenopathy. CARDIOVASCULAR: Regular rate and rhythm without murmurs, gallops, or rubs. RESPIRATORY: Breath sounds equal bilaterally. No accessory muscle use. GASTROINTESTINAL: Abdomen soft, non-tender, nondistended. MUSCULOSKELETAL: No cyanosis, or edema. BACK: Nontender without obvious deformity. No CVA tenderness. Wendy Palma Dec 01, 2016 11:17 Imelda Jolley MD Dec 01, 2016 13:14
[2016-12-01 12:19] VITALS: BP 113/59; PULSE 67; RESP 20; TEMP 99.1; O2SAT 98
== END 2016-12-01 12:19 | disposition home or self-care (01) | DRG 683 ==
LOC: NEPC 08:22 → NEDA 11:03 → N05A 15:48
PROVIDERS: ADMIT Family Medicine; ATTEND Family Medicine
DX: N17.9 Acute kidney failure, unspecified (principal); I67.4 Hypertensive encephalopathy; M34.9 Systemic sclerosis, unspecified; E86.0 Dehydration; I16.1 Hypertensive emergency; I12.9 Hypertensive chronic kidney disease with stage 1 through stage 4 chronic kidney disease, or unspecified chronic kidney disease; I16.0 Hypertensive urgency; H53.8 Other visual disturbances; K21.9 Gastro-esophageal reflux disease without esophagitis; J45.909 Unspecified asthma, uncomplicated; N18.9 Chronic kidney disease, unspecified; H66.92 Otitis media, unspecified, left ear; Z96.653 Presence of artificial knee joint, bilateral
CPT/HCPCS: 70450; 80048; 80061; 81001; 82550; 84439; 84443; 84484; 85007; 85025; 85027; 85610; 85730; 93005; 96374; J0360; J1644; J7030; J7512; J8610

== ENCOUNTER 2017-01-01 09:16 | Emergency (ER) | payer MEDICARE, OTHER ==
[~2017-01-01] VITALS: Ht 160 cm; Wt 72.2 kg
[~2017-01-01 09:16] MED LIST changes: +AMLO5 PO; +AMOX500T PO; -BENZ100 PO; +HYDR12.57 PO; +HYDROMET PO; +LIDO5DIS5 T-DERMAL; -LISI2.5T3 PO; +LISI40TA PO; +METH2.5T PO; -OMEP10CA PO; -OSEL75 PO; +PRED50TA PO; +PRED5TAB PO; +PREV30CA36 PO; +TOPR25TA2 PO; +VENTAER INH; +ZITH250T PO; -ZOFR4TAB3 SL
[2017-01-01 09:18] VITALS: BP 161/66; PULSE 93; RESP 17; TEMP 98.4; O2SAT 99
[2017-01-01] MEDS ORDERED: SODIUM CHLORIDE 0.9% FLUSH 10 ML FLUSH IVF PRN (09:45)
[2017-01-01 09:47] VITALS: BP 113/54; PULSE 75; RESP 18; O2SAT 100
--- NOTE | 2017-01-01 09:48 | PD ---
HPI Chief Complaint: Respiratory Symptoms Time Seen by Provider: 09:32 Travel History International Travel<30 days: No Contact w/Intl Traveler<30days: No Traveled to known affect area: No History of Present Illness HPI The patient is a 76-year-old Japanese-speaking female who presents to the emergency department with her [id number] for shortness of breath. The [id number] translates for the patient at bedside per her request. The fwmvhuur-[id number] states the patient has a two-week history of shortness of breath with exertion that is alleviated at rest. They saw their primary physician in [place] who stated that the patient's blood levels were slightly low, however, they were not referred to the emergency department for transfusion. The daughter in law states that the patient's shortness of breath is worse with exertion, alleviated at rest, but there is no associated chest pain. The patient does complain of generalized fatigue with decreased activity , but there is been no cough, nausea, vomiting, diarrhea, or abdominal pain. The patient does have a history of hypertension. 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 PFSH Past Medical History Cardiovascular Problems: Yes Diminished Hearing: No GERD: Yes Hypertension: Yes Menopausal: Yes Past Surgical History Cholecystectomy: Yes Social History Alcohol Use: No Tobacco Use: No Allergies-Medications (Allergen,Severity, Reaction): Coded Allergies: iodine (Verified Allergy, Severe, Anaphylaxis, 01/01/17) Reported Meds & Prescriptions Reported Meds & Active Scripts Active Reported [Hydromet] 1 Tsp PO Q4-6HPRN Ventolin Hfa (Albuterol Sulfate) 18 Gm Aero 2 Puff INH Q6HPRN Toprol Xl (Metoprolol Succinate) 25 Mg Tabcr 25 Mg PO DAILY Prevacid (Lansoprazole) 30 Mg Capcr 30 Mg PO DAILY Review of Systems Except as stated in HPI: all other systems reviewed are Neg General / Constitutional: No: Fever HENT: No: Lightheadedness Cardiovascular: Positive: Dyspnea on exertion, No: Chest Pain or Discomfort Respiratory: Positive: Shortness of Breath Gastrointestinal: No: Nausea, Vomiting, Abdominal Pain Genitourinary: No: Dysuria Musculoskeletal: Positive: Weakness Neurologic: Positive: Weakness Physical Exam Narrative GENERAL: Awake, alert, pleasant 76-year-old female who appears her stated age and is in no acute respiratory distress. SKIN: Focused skin assessment warm/dry. HEAD: Atraumatic. Normocephalic. EYES: Pupils equal and round. No scleral icterus. No injection or drainage. ENT: No nasal bleeding or discharge. Slightly dry mucous membranes. NECK: Trachea midline. No JVD. CARDIOVASCULAR: Regular rate and rhythm. Holosystolic murmur noted. RESPIRATORY: No accessory muscle use. Clear to auscultation. Breath sounds equal bilaterally. GASTROINTESTINAL: Abdomen soft, non-tender, nondistended. No rebound tenderness. Rectal: The exam was performed in the presence of a female nurse. No gross blood, guaiac negative. MUSCULOSKELETAL: No obvious deformities. No clubbing. No cyanosis. No edema. NEUROLOGICAL: Awake and alert. No obvious cranial nerve deficits. Motor grossly within normal limits. Normal speech. PSYCHIATRIC: Appropriate mood and affect; insight and judgment normal. Data Data Last Documented VS Vital Signs Date Time Temp Pulse Resp B/P Pulse Ox O2 Delivery O2 Flow Rate FiO2 01/01/17 11:00 68 18 115/57 100 01/01/17 09:47 Nasal Cannula 2 01/01/17 09:18 98.4 Orders Complete Blood Count With Diff (01/01/17 09:41) Comprehensive Metabolic Panel (01/01/17 09:41) B-Type Natriuretic Peptide (01/01/17 09:41) Act Partial Throm Time (Ptt) (01/01/17 09:41) Prothrombin Time / Inr (Pt) (01/01/17 09:41) Magnesium (Mg) (01/01/17 09:41) Ckmb (Isoenzyme) Profile (01/01/17 09:41) Troponin I (01/01/17 09:41) Urinalysis - C+S If Indicated (01/01/17 09:41) Iv Access Insert/Monitor (01/01/17 09:41) Electrocardiogram (01/01/17 09:41) Ecg Monitoring (01/01/17 09:41) Oximetry (01/01/17 09:41) Oxygen Administration (01/01/17 09:41) Chest, Single Ap (01/01/17 09:41) Sodium Chloride 0.9% Flush (Ns Flush) (01/01/17 09:45) Thyroid Stimulating Hormone (01/01/17 09:41) Free T3 (01/01/17 10:42) Free Thyroxine (T4) (01/01/17 10:42) Labs Laboratory Tests Test 01/01/17 01/01/17 09:50 10:37 White Blood Count 7.3 TH/MM3 Red Blood Count 3.97 MIL/MM3 Hemoglobin 12.4 GM/DL Hematocrit 37.3 % Mean Corpuscular Volume 94.0 FL Mean Corpuscular Hemoglobin 31.3 PG Mean Corpuscular Hemoglobin 33.3 % Concent Red Cell Distribution Width 15.3 % Platelet Count 275 TH/MM3 Mean Platelet Volume 8.0 FL Neutrophils (%) (Auto) 80.1 % Lymphocytes (%) (Auto) 16.1 % Monocytes (%) (Auto) 3.2 % Eosinophils (%) (Auto) 0.3 % Basophils (%) (Auto) 0.3 % Neutrophils # (Auto) 5.9 TH/MM3 Lymphocytes # (Auto) 1.2 TH/MM3 Monocytes # (Auto) 0.2 TH/MM3 Eosinophils # (Auto) 0.0 TH/MM3 Basophils # (Auto) 0.0 TH/MM3 CBC Comment DIFF FINAL Differential Comment Prothrombin Time 10.4 SEC Prothromb Time International 0.9 RATIO Ratio Activated Partial 25.7 SEC Thromboplast Time Sodium Level 141 MEQ/L Potassium Level 4.2 MEQ/L Chloride Level 108 MEQ/L Carbon Dioxide Level 24.1 MEQ/L Anion Gap 9 MEQ/L Blood Urea Nitrogen 24 MG/DL Creatinine 1.26 MG/DL Estimat Glomerular Filtration 42 ML/MIN Rate Random Glucose 124 MG/DL Calcium Level 8.6 MG/DL Magnesium Level 2.3 MG/DL Total Bilirubin 0.7 MG/DL Aspartate Amino Transf 11 U/L (AST/SGOT) Alanine Aminotransferase 18 U/L (ALT/SGPT) Alkaline Phosphatase 104 U/L Total Creatine Kinase 24 U/L Troponin I LESS THAN 0.02 NG/ML B-Type Natriuretic Peptide 133 PG/ML Total Protein 6.7 GM/DL Albumin 3.3 GM/DL Free Thyroxine 1.34 NG/DL Free Triiodothyronine (T3) 2.02 PG/ML pg/dL Thyroid Stimulating Hormone 0.026 uIU/ML 3rd Gen Urine Color YELLOW Urine Turbidity CLEAR Urine pH 5.5 Urine Specific [place] 1.010 Urine Protein NEG mg/dL Urine Glucose (UA) NEG mg/dL Urine Ketones NEG mg/dL Urine Occult Blood NEG Urine Nitrite NEG Urine Bilirubin NEG Urine Urobilinogen LESS THAN 2.0 MG/DL Urine Leukocyte Esterase TRACE Urine RBC 1 /hpf Urine WBC 1 /hpf Urine Squamous Epithelial 1 /hpf Cells Microscopic Urinalysis Comment CULT NOT INDICATED MDM Medical Decision Making Medical Screen Exam Complete: Yes Emergency Medical Condition: Yes Medical Record Reviewed: Yes Interpretation(s) EKG reveals normal sinus rhythm with a rate of 74. Low QRS voltage in the precordial leads. Laboratory Tests Test 01/01/17 01/01/17 09:50 10:37 White Blood Count 7.3 TH/MM3 Red Blood Count 3.97 MIL/MM3 Hemoglobin 12.4 GM/DL Hematocrit 37.3 % Mean Corpuscular Volume 94.0 FL Mean Corpuscular Hemoglobin 31.3 PG Mean Corpuscular Hemoglobin 33.3 % Concent Red Cell Distribution Width 15.3 % Platelet Count 275 TH/MM3 Mean Platelet Volume 8.0 FL Neutrophils (%) (Auto) 80.1 % Lymphocytes (%) (Auto) 16.1 % Monocytes (%) (Auto) 3.2 % Eosinophils (%) (Auto) 0.3 % Basophils (%) (Auto) 0.3 % Neutrophils # (Auto) 5.9 TH/MM3 Lymphocytes # (Auto) 1.2 TH/MM3 Monocytes # (Auto) 0.2 TH/MM3 Eosinophils # (Auto) 0.0 TH/MM3 Basophils # (Auto) 0.0 TH/MM3 CBC Comment DIFF FINAL Differential Comment Prothrombin Time 10.4 SEC Prothromb Time International 0.9 RATIO Ratio Activated Partial 25.7 SEC Thromboplast Time Sodium Level 141 MEQ/L Potassium Level 4.2 MEQ/L Chloride Level 108 MEQ/L Carbon Dioxide Level 24.1 MEQ/L Anion Gap 9 MEQ/L Blood Urea Nitrogen 24 MG/DL Creatinine 1.26 MG/DL Estimat Glomerular Filtration 42 ML/MIN Rate Random Glucose 124 MG/DL Calcium Level 8.6 MG/DL Magnesium Level 2.3 MG/DL Total Bilirubin 0.7 MG/DL Aspartate Amino Transf 11 U/L (AST/SGOT) Alanine Aminotransferase 18 U/L (ALT/SGPT) Alkaline Phosphatase 104 U/L Total Creatine Kinase 24 U/L Troponin I LESS THAN 0.02 NG/ML B-Type Natriuretic Peptide 133 PG/ML Total Protein 6.7 GM/DL Albumin 3.3 GM/DL Free Thyroxine 1.34 NG/DL Free Triiodothyronine (T3) 2.02 PG/ML pg/dL Thyroid Stimulating Hormone 0.026 uIU/ML 3rd Gen Urine Color YELLOW Urine Turbidity CLEAR Urine pH 5.5 Urine Specific [place] 1.010 Urine Protein NEG mg/dL Urine Glucose (UA) NEG mg/dL Urine Ketones NEG mg/dL Urine Occult Blood NEG Urine Nitrite NEG Urine Bilirubin NEG Urine Urobilinogen LESS THAN 2.0 MG/DL Urine Leukocyte Esterase TRACE Urine RBC 1 /hpf Urine WBC 1 /hpf Urine Squamous Epithelial 1 /hpf Cells Microscopic Urinalysis Comment CULT NOT INDICATED Differential Diagnosis Differential diagnosis includes symptomatic anemia, GI bleed, hypothyroidism, congestive heart failure, acute coronary syndrome, deconditioning, dehydration, UTI, pneumonia. Narrative Course IV was established, labs are drawn and sent, and the patient was placed on cardiac telemetry monitoring and continuous pulse oximetry monitoring. EKG was ordered and interpreted. Chest x-ray was obtained. CBC was sent to lab. The patient's hemoglobin is normal at 12.4. Electrolytes are unremarkable. TSH was low at 0.29, therefore, free T3 and free T4 were ordered. Free T4 is within normal limits, free T3 is slightly low. It does not appear to be hyperthyroidism. UA is unremarkable. Patient has dyspnea upon exertion of 2 weeks' duration, she may benefit from outpatient echocardiogram and cardiology evaluation. [facility]Prompt Point of Care Internal Pos. & Neg. Controls: Passed Fecal Specimen Occult Blood: Negative Diagnosis Primary Impression: Generalized weakness Additional Impression: Exertional dyspnea Patient Instructions: General Instructions Additional Instructions: Follow-up with your primary physician. Please provide the patient a copy of her labs and x-ray results at discharge. He may benefit from outpatient follow- up with her primary physician and outpatient echocardiogram. Med/Other Pt SpecificInfo: No Change to Meds Disposition: 01 DISCHARGE HOME Condition: Stable Last Fair MD Jan 01, 2017 09:48
[2017-01-01 10:10] LABS: AUTOMATED NEUTROPHIL # 5.9 TH/MM3 (1.8-7.7); BASOPHIL % 0.3 % (0.0-2.0); EOSINOPHIL % 0.3 % (0.0-4.0); HEMATOCRIT 37.3 % (35.0-46.0); HEMO FLAGS DIFF FINAL; LYMPH % 16.1 % (9.0-44.0); LYMPHOCYTE # 1.2 TH/MM3 (1.0-4.8); MEAN CORPUSCULAR HEMOGLOBIN 31.3 PG (27.0-34.0); MEAN CORPUSCULAR HGB CONC 33.3 % (32.0-36.0); MONO % 3.2 % (0.0-8.0); NEUT % 80.1 % (16.0-70.0); PLATELET COUNT 275 TH/MM3 (150-450); RED BLOOD COUNT 3.97 MIL/MM3 (4.00-5.30); RED CELL DISTRIBUTION WIDTH 15.3 % (11.6-17.2); WHITE BLOOD COUNT 7.3 TH/MM3 (4.0-11.0)
[2017-01-01 10:14] LABS: APTT (PATIENT) 25.7 SEC (24.3-30.1); INTERNATIONAL NORMALIZED RATIO 0.9 RATIO; PROTHROMBIN TIME - PATIENT 10.4 SEC (9.8-11.6)
[2017-01-01 10:21] LABS: ALT (GPT) 18 U/L (10-53); ANION GAP 9 MEQ/L (5-15); AST (GOT) 11 U/L (15-37); BICARBONATE 24.1 MEQ/L (21.0-32.0); BLOOD UREA NITROGEN 24 MG/DL (7-18); CHLORIDE 108 MEQ/L (98-107); GLOMERULAR FILTRATION RATE 42 ML/MIN (>89); MAGNESIUM 2.3 MG/DL (1.5-2.5); POTASSIUM 4.2 MEQ/L (3.5-5.1); SODIUM (NA) 141 MEQ/L (136-145)
[2017-01-01 10:30] LABS: ALKALINE PHOSPHATASE 104 U/L (45-117); TOTAL BILIRUBIN ADULT 0.7 MG/DL (0.2-1.0)
[2017-01-01 10:32] LABS: CREATINE KINASE 24 U/L (26-192)
--- NOTE | 2017-01-01 10:41 | RADRPT ---
EXAM DATE/TIME: 01/01/2017 10:22 [facility] COMPARISON: No previous studies available for comparison. INDICATIONS : Short of breath, fatigue when walking around. MEDICAL HISTORY : None. SURGICAL HISTORY : cardiac cath. ENCOUNTER: Initial ACUITY: 2 weeks PAIN SCORE: 0/10 LOCATION: Bilateral chest FINDINGS: A single view of the chest demonstrates the lungs to be symmetrically aerated without evidence of mas s, infiltrate or effusion. The cardiomediastinal contours are unremarkable. Osseous structures are intact. Mild atherosclerotic changes are present in the aorta with calcification. There are overlying electrocardiogram leads. CONCLUSION: No acute disease. Alfa Menard MD on January 01, 2017 at 10:38 Board Certified Radiologist. This report was verified electronically.
[2017-01-01 10:58] LABS: BLOOD, URINE NEG (NEG); COMMENT (UR) CULT NOT INDICATED; CULTURE IF INDICATED CULT NOT INDICATED; GLUCOSE,URINE NEG (NEG); KETONE, URINE NEG (NEG); NITRITE,URINE NEG (NEG); PH, URINE 5.5 (5.0-8.5); SQUAMOUS EPITHELIAL CELL URINE 1 /hpf (0-5); URINE COLOR YELLOW (YELLW/STRAW)
[2017-01-01 11:00] VITALS: BP 115/57; PULSE 68; RESP 18; O2SAT 100
[2017-01-01 11:38] LABS: FREE T3 2.02 PG/ML (2.18-3.98); FREE T4 1.34 NG/DL (0.76-1.46)
[2017-01-01 12:27] VITALS: BP 122/68
--- NOTE | 2017-01-01 14:36 | EKG ---
Date Performed: 01/01/2017 Time Performed: 10:02:22 PTAGE: 76 years EKG: Sinus rhythm LOW QRS VOLTAGE IN PRECORDIAL LEADS BORDERLINE ECG NO PREVIOUS TRACING DOCTOR: Jose Juan Haas Interpretating Date/Time 01/01/2017 14:34:06
== END 2017-01-01 13:21 | disposition home or self-care (01) ==
LOC: MERGE 09:16 → NEPE 09:16
DX: R53.1 Weakness (principal); R06.00 Dyspnea, unspecified; I10 Essential (primary) hypertension; K21.9 Gastro-esophageal reflux disease without esophagitis
CPT/HCPCS: 71010; 80053; 81001; 82550; 83735; 83880; 84439; 84443; 84481; 84484; 85025; 85610; 85730; 93005; 99285

== ENCOUNTER 2017-01-09 05:47 | Observation (INO) | payer OTHER ==
[2017-01-09] VITALS (15 sets, daily range): BP systolic 91–155; BP diastolic 48–102; PULSE 60–95; RESP 14–20; TEMP 96.8–98.4; O2SAT 95–100
[~2017-01-09] VITALS: Ht 162.6 cm; Wt 75.0 kg
[~2017-01-09 05:47] MED LIST changes: -PRED50TA PO; -ZITH250T PO
[2017-01-09] MEDS ORDERED: SODIUM CHLORIDE 0.9% FLUSH 10 ML FLUSH IVF PRN (06:15)
--- NOTE | 2017-01-09 06:18 | PD ---
HPI Chief Complaint: Chest Pain Time Seen by Provider: 06:15 Travel History International Travel<30 days: No Contact w/Intl Traveler<30days: No Traveled to known affect area: No History of Present Illness HPI 77-year-old female patient with history of previous palpitations and tachycardia , presents to the ER today brought in by her daughter for palpitations that is worse than usual. She has been having coughing, nausea, but no vomiting. She states it is not settling down. She denies any new medications. Modifying Factors: None Associated Signs & Symptoms: Palpitations, chest discomfort, coughing, nausea Risk Factors: Previous history of palpitations PFSH Past Medical History Arthritis: No Asthma: Yes Autoimmune Disease: No Blood Disorders: No Heart Rhythm Problems: No Cancer: No Cardiac Catheterization: Yes Cardiovascular Problems: Yes High Cholesterol: No Chest Pain: Yes Congestive Heart Failure: No COPD: No Diabetes: No Diminished Hearing: No Endocrine: No Gastrointestinal Disorders: Yes GERD: Yes Genitourinary: No Hiatal Hernia: No Hypertension: Yes Immune Disorder: No Implanted Vascular Access Dvce: No Musculoskeletal: Yes Neurologic: No Psychiatric: No Reproductive: No Respiratory: Yes Immunizations Current: Yes 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) Sleep Apnea: No Thyroid Disease: No Ulcer: No Tetanus Vaccination: Unknown Influenza Vaccination: Yes PNEUMOCCOCAL Vaccine (Year): 1 Menopausal: Yes : 5 Para: 5 Past Surgical History Abdominal Surgery: Yes (cholecystectomy) Cardiac Surgery: No Cholecystectomy: Yes Ear Surgery: No Endocrine Surgery: No Eye Surgery: No Genitourinary Surgery: No Gynecologic Surgery: No Joint Replacement: Yes (left knee 06/2011) Oral Surgery: No Thoracic Surgery: No Other Surgery: Yes (right knee) Social History Alcohol Use: No Tobacco Use: No Substance Use: No Allergies-Medications (Allergen,Severity, Reaction): Coded Allergies: iodine (Verified Allergy, Severe, Anaphylaxis, 01/09/17) iodine (Unverified Allergy, Severe, 01/09/17) potassium iodide (Unverified Allergy, Severe, 01/09/17) povidone-iodine (Unverified Allergy, Severe, 01/09/17) sodium iodide (Unverified Allergy, Severe, 01/09/17) sodium iodide (Unverified Allergy, Severe, 01/09/17) Reported Meds & Prescriptions Reported Meds & Active Scripts Active Lidoderm (Lidocaine) 5 % Adh..patch 1 Patch T-DERMAL DAILY PRN Hydrochlorothiazide 12.5 Mg Cap 12.5 Mg PO DAILY Norvasc (Amlodipine Besylate) 5 Mg Tab 5 Mg PO DAILY Reported Prevacid (Lansoprazole) 30 Mg Capdr 30 Mg PO DAILY Ventolin Hfa 18 GM Inh (Albuterol Sulfate) 90 Mcg/Act Aer 2 Puff INH Q4-6H PRN Methotrexate 2.5 Mg Tab 8 Tab PO Q7D Lisinopril 40 Mg Tab 40 Mg PO DAILY Review of Systems Except as stated in HPI: all other systems reviewed are Neg Physical Exam Narrative GENERAL: Well-developed elderly female patient in mild distress. Awake and oriented 3. SKIN: Focused skin assessment warm/dry. HEAD: Atraumatic. Normocephalic. EYES: Pupils equal and round. No scleral icterus. No injection or drainage. ENT: No nasal bleeding or discharge. Mucous membranes pink and moist. NECK: Trachea midline. No JVD. CARDIOVASCULAR: Regular rate and rhythm. No murmur appreciated. RESPIRATORY: No accessory muscle use. Clear to auscultation. Breath sounds equal bilaterally. GASTROINTESTINAL: Abdomen soft, non-tender, nondistended. Hepatic and splenic margins not palpable. MUSCULOSKELETAL: No obvious deformities. No clubbing. No cyanosis. No edema. NEUROLOGICAL: Awake and alert. No obvious cranial nerve deficits. Motor grossly within normal limits. Normal speech. PSYCHIATRIC: Appropriate mood and affect; insight and judgment normal. Data Data Last Documented VS Vital Signs Date Time Temp Pulse Resp B/P (MAP) Pulse Ox O2 Delivery O2 Flow Rate FiO2 01/09/17 06:56 78 14 145/67 (93) 100 01/09/17 06:53 Room Air 01/09/17 06:44 2.00 01/09/17 05:48 98.4 Orders Orders Electrocardiogram (01/09/17 06:15) Ckmb (Isoenzyme) Profile (01/09/17 06:15) Complete Blood Count With Diff (01/09/17 06:15) Comprehensive Metabolic Panel (01/09/17 06:15) Magnesium (Mg) (01/09/17 06:15) Prothrombin Time / Inr (Pt) (01/09/17 06:15) Act Partial Throm Time (Ptt) (01/09/17 06:15) Troponin I (01/09/17 06:15) Chest, Single Ap (01/09/17 06:15) Ecg Monitoring (01/09/17 06:15) Bilateral Bp Monitoring (01/09/17 06:15) Iv Access Insert/Monitor (01/09/17 06:15) Oximetry (01/09/17 06:15) Oxygen Administration (01/09/17 06:15) Sodium Chloride 0.9% Flush (Ns Flush) (01/09/17 06:15) Labs Laboratory Tests Test 01/09/17 06:35 White Blood Count 8.7 TH/MM3 Red Blood Count 3.99 MIL/MM3 Hemoglobin 12.3 GM/DL Hematocrit 37.6 % Mean Corpuscular Volume 94.2 FL Mean Corpuscular Hemoglobin 30.8 PG Mean Corpuscular Hemoglobin Concent 32.7 % Red Cell Distribution Width 15.2 % Platelet Count 288 TH/MM3 Mean Platelet Volume 8.1 FL Neutrophils (%) (Auto) 79.6 % Lymphocytes (%) (Auto) 14.0 % Monocytes (%) (Auto) 5.6 % Eosinophils (%) (Auto) 0.3 % Basophils (%) (Auto) 0.5 % Neutrophils # (Auto) 6.9 TH/MM3 Lymphocytes # (Auto) 1.2 TH/MM3 Monocytes # (Auto) 0.5 TH/MM3 Eosinophils # (Auto) 0.0 TH/MM3 Basophils # (Auto) 0.0 TH/MM3 CBC Comment DIFF FINAL Differential Comment MDM Medical Decision Making Medical Screen Exam Complete: Yes Emergency Medical Condition: Yes Medical Record Reviewed: Yes Interpretation(s) EKG shows NSR with occasional PACs, no ST elevation or depression, and no arrhythmias. No significant T-wave inversions. Last 24 hours Impressions Chest X-Ray 01/09/17 0615 Signed Impressions: Service Date/Time: Monday, January 09, 2017 06:27 - CONCLUSION: Normal examination. Garcia Burr MD Laboratory Tests Test 01/09/17 06:35 Red Blood Count 3.99 MIL/MM3 (4.00-5.30) Neutrophils (%) (Auto) 79.6 % (16.0-70.0) Differential Diagnosis palpitations dysrhythmias versus anxiety attack versus ACS Narrative Course Initial chest x-ray did not show any signs of acute pulmonary processes. Vital signs are stable in the ER. EKG did not show significant dysrhythmias. Lab work has been ordered for further evaluation. Physician Communication Physician Communication Case is signed out to Dr. Jackson at 7 AM pending workup. Disposition based on workup. Diagnosis Primary Impression: Palpitations Condition: Stable Cayetano Theodore MD Jan 09, 2017 06:18
[2017-01-09] MEDS ORDERED: VENTAER INH (06:22)
[2017-01-09] MEDS ORDERED: PREV30CA11 PO (06:22)
--- NOTE | 2017-01-09 06:44 | RADRPT ---
EXAM DATE/TIME: 01/09/2017 06:27 [facility] COMPARISON: CHEST SINGLE AP, July 10, 2016, 12:10. INDICATIONS : Palpitations. MEDICAL HISTORY : Cardiovascular disease. Hypertension Asthma SURGICAL HISTORY : Cholecystectomy. ENCOUNTER: Initial ACUITY: 1 day PAIN SCORE: 0/10 LOCATION: Bilateral chest FINDINGS: A single view of the chest demonstrates the lungs to be symmetrically aerated without evidence of mas s, infiltrate or effusion. The cardiomediastinal contours are unremarkable. Osseous structures are intact. CONCLUSION: Normal examination. Garcia Burr MD on January 09, 2017 at 6:42 Board Certified Radiologist. This report was verified electronically.
[2017-01-09 06:52] LABS: AUTOMATED NEUTROPHIL # 6.9 TH/MM3 (1.8-7.7); BASOPHIL % 0.5 % (0.0-2.0); EOSINOPHIL % 0.3 % (0.0-4.0); HEMATOCRIT 37.6 % (35.0-46.0); HEMO FLAGS DIFF FINAL; LYMPHOCYTE # 1.2 TH/MM3 (1.0-4.8); MEAN CELL VOLUME 94.2 FL (80.0-100.0); MEAN CORPUSCULAR HEMOGLOBIN 30.8 PG (27.0-34.0); MEAN CORPUSCULAR HGB CONC 32.7 % (32.0-36.0); MONO % 5.6 % (0.0-8.0); NEUT % 79.6 % (16.0-70.0); PLATELET COUNT 288 TH/MM3 (150-450); RED BLOOD COUNT 3.99 MIL/MM3 (4.00-5.30); RED CELL DISTRIBUTION WIDTH 15.2 % (11.6-17.2); WHITE BLOOD COUNT 8.7 TH/MM3 (4.0-11.0)
[2017-01-09 07:11] LABS: APTT (PATIENT) 27.2 SEC (24.3-30.1); INTERNATIONAL NORMALIZED RATIO 0.9 RATIO
[2017-01-09 07:23] LABS: ALT (GPT) 19 U/L (10-53); ANION GAP 9 MEQ/L (5-15); AST (GOT) 16 U/L (15-37); BICARBONATE 23.4 MEQ/L (21.0-32.0); BLOOD UREA NITROGEN 26 MG/DL (7-18); CHLORIDE 111 MEQ/L (98-107); GLOMERULAR FILTRATION RATE 45 ML/MIN (>89); MAGNESIUM 2.3 MG/DL (1.5-2.5); POTASSIUM 3.8 MEQ/L (3.5-5.1); SODIUM (NA) 143 MEQ/L (136-145)
[2017-01-09 07:26] LABS: ALKALINE PHOSPHATASE 114 U/L (45-117); TOTAL BILIRUBIN ADULT 0.5 MG/DL (0.2-1.0)
[2017-01-09 07:30] LABS: CREATINE KINASE 39 U/L (26-192)
--- NOTE | 2017-01-09 08:59 | PD ---
Physical Exam Date Seen by Provider: Jan 09, 2017 Narrative Care was assumed from Dr. Zheng at 7 AM pending cardiac workup. Data Data Last Documented VS Vital Signs Date Time Temp Pulse Resp B/P (MAP) Pulse Ox O2 Delivery O2 Flow Rate FiO2 01/09/17 08:29 78 18 155/68 (97) 100 Room Air 01/09/17 06:44 2.00 01/09/17 05:48 98.4 Orders Orders Electrocardiogram (01/09/17 06:15) Ckmb (Isoenzyme) Profile (01/09/17 06:15) Complete Blood Count With Diff (01/09/17 06:15) Comprehensive Metabolic Panel (01/09/17 06:15) Magnesium (Mg) (01/09/17 06:15) Prothrombin Time / Inr (Pt) (01/09/17 06:15) Act Partial Throm Time (Ptt) (01/09/17 06:15) Troponin I (01/09/17 06:15) Chest, Single Ap (01/09/17 06:15) Ecg Monitoring (01/09/17 06:15) Bilateral Bp Monitoring (01/09/17 06:15) Iv Access Insert/Monitor (01/09/17 06:15) Oximetry (01/09/17 06:15) Oxygen Administration (01/09/17 06:15) Sodium Chloride 0.9% Flush (Ns Flush) (01/09/17 06:15) Lorazepam Inj (Ativan Inj) (01/09/17 09:00) Labs Laboratory Tests Test 01/09/17 06:35 White Blood Count 8.7 TH/MM3 Red Blood Count 3.99 MIL/MM3 Hemoglobin 12.3 GM/DL Hematocrit 37.6 % Mean Corpuscular Volume 94.2 FL Mean Corpuscular Hemoglobin 30.8 PG Mean Corpuscular Hemoglobin Concent 32.7 % Red Cell Distribution Width 15.2 % Platelet Count 288 TH/MM3 Mean Platelet Volume 8.1 FL Neutrophils (%) (Auto) 79.6 % Lymphocytes (%) (Auto) 14.0 % Monocytes (%) (Auto) 5.6 % Eosinophils (%) (Auto) 0.3 % Basophils (%) (Auto) 0.5 % Neutrophils # (Auto) 6.9 TH/MM3 Lymphocytes # (Auto) 1.2 TH/MM3 Monocytes # (Auto) 0.5 TH/MM3 Eosinophils # (Auto) 0.0 TH/MM3 Basophils # (Auto) 0.0 TH/MM3 CBC Comment DIFF FINAL Differential Comment Prothrombin Time 10.0 SEC Prothromb Time International Ratio 0.9 RATIO Activated Partial Thromboplast Time 27.2 SEC Blood Urea Nitrogen 26 MG/DL Creatinine 1.18 MG/DL Random Glucose 97 MG/DL Total Protein 7.4 GM/DL Albumin 3.6 GM/DL Calcium Level 8.8 MG/DL Magnesium Level 2.3 MG/DL Alkaline Phosphatase 114 U/L Aspartate Amino Transf (AST/SGOT) 16 U/L Alanine Aminotransferase (ALT/SGPT) 19 U/L Total Bilirubin 0.5 MG/DL Sodium Level 143 MEQ/L Potassium Level 3.8 MEQ/L Chloride Level 111 MEQ/L Carbon Dioxide Level 23.4 MEQ/L Anion Gap 9 MEQ/L Estimat Glomerular Filtration Rate 45 ML/MIN Total Creatine Kinase 39 U/L Troponin I 0.02 NG/ML MDM Supervised Visit with IRIS: No Interpretation(s) EKG shows a normal sinus rhythm with no acute ischemic change. Differential Diagnosis Differential diagnosis of chest pain includes but is not limited to musculoskeletal pain, pulmonary embolism, acute coronary syndrome, pneumonia, pleurisy Narrative Course This patient presents with left chest and shoulder pain associated with palpitations. Last Impressions Chest X-Ray 01/09/17614 Signed Impressions: Service Date/Time: Wednesday, January 09, 2017 06:27 - CONCLUSION: Normal examination. Garcia Burr MD CBC & BMP Diagram 01/09/17 06:35 Total Protein 7.4, Albumin 3.6, Calcium Level 8.8, Magnesium Level 2.3, Alkaline Phosphatase 114, Aspartate Amino Transf (AST/SGOT) 16, Alanine Aminotransferase (ALT/SGPT) 19, Total Bilirubin 0.5 Cardiac enzymes are negative. Disposition was discussed with the patient and a family member with the assistance of one of our [place]-speaking nurses. The patient is requesting admission. She is also requesting something for her pain. Her symptoms may very well be anxiety related. I have ordered Ativan, 1 mg IV. She is being admitted to the chest pain center. Diagnosis Primary Impression: Palpitations Admitting Information Admitting Physician Requests: Observation Condition: Stable Janie Moreira MD Jan 09, 2017 08:59
[2017-01-09] MEDS ORDERED: LORazepam 2 MG/ML VIAL IV PUSH ONE (09:00)
[2017-01-09] MEDS ORDERED: NITROGLYCERIN 0.4 MG SL 25 TABS/BTL SL PRN (09:15)
[2017-01-09] MEDS ORDERED: ONDANSETRON HCL 4 MG/2 ML VIAL IV PRN (09:15)
[2017-01-09] MEDS ORDERED: SODIUM CHLORIDE 0.9% FLUSH 10 ML FLUSH IV FLUSH PRN (09:15)
[2017-01-09 10:50] LABS: CREATINE KINASE 28 U/L (26-192)
--- NOTE | 2017-01-09 12:17 | HHI.HP ---
HPI Primary Care Physician Non-Staff Chief Complaint Chest pain History of Present Illness 77-year-old female with history of hypertension and GERD presents to emergency room for further evaluation of chest pain. Interpretation service used during interview. Onset last evening while eating dinner. Location substernal. Characterized as a pressure. No radiation of pain. Duration continued all night, states she could not sleep due to chest pain. Associated symptoms included nausea. Denies shortness of breath, vomiting, or diaphoresis. No known precipitating factors. Relieving factors "a medication provided in the ER." Pain continues although is much improved. Reports palpitations during last night's episode. Endorses similar pain, as well as palpitations, in the past. In fact, states "I have had for a long time almost 10 years." Reports following with a teller supervisor in [place] with most recent appointment 12/18/16. Reports having an ultrasound of her heart completed at that time. Review of Systems General: No fatigue,weakness, fever, chills, or recent illness. Has been in her general state of health. CV: As stated above. Mild chest pain, stating "much improved." History of palpitations x 10 years. No current palpitations. RESP: No SOB, cough, sputum production, or recent URI. GI: Nausea has resolved. No vomiting, bowel changes, or diarrhea. : No dysuria MS: Ambulates with a walker. No discomfort or change in ROM NEURO: No LOC, motor/sensory deficits PSYCH: Current situational depression states her recently . Her sister came from [place] to stay with her after 's , sister returning home January 22. No suicidal ideation Past Family Social History Allergies: Coded Allergies: iodine (Verified Allergy, Severe, Anaphylaxis, 01/09/17) iodine (Unverified Allergy, Severe, 01/09/17) potassium iodide (Unverified Allergy, Severe, 01/09/17) povidone-iodine (Unverified Allergy, Severe, 01/09/17) sodium iodide (Unverified Allergy, Severe, 01/09/17) sodium iodide (Unverified Allergy, Severe, 01/09/17) Past Medical History GERD, asthma, hypertension, benign pancreatic tumor, scleroderma Past Surgical History Cholecystectomy, bilateral knee replacements, appendectomy, hysterectomy Reported Medications Active Lidoderm (Lidocaine) 5 % Adh..patch 1 Patch T-DERMAL DAILY PRN Hydrochlorothiazide 12.5 Mg Cap 12.5 Mg PO DAILY Norvasc (Amlodipine Besylate) 5 Mg Tab 5 Mg PO DAILY Prevacid (Lansoprazole) 30 Mg Capdr 30 Mg PO DAILY Ventolin Hfa 18 GM Inh (Albuterol Sulfate) 90 Mcg/Act Aer 2 Puff INH Q4-6H PRN Methotrexate 2.5 Mg Tab 8 Tab PO Q7D Lisinopril 40 Mg Tab 40 Mg PO DAILY Active Ordered Medications Current Medications Medications (Trade) Dose Ordered Sig/Karina Route Start Time Stop Time Status Last Admin (NS Flush) 2 ml UNSCH PRN IV FLUSH 01/09/17 09:15 (NS Flush) 2 ml BID IV FLUSH 01/09/17 21:00 (Tylenol) 500 mg Q4H PRN PO 01/09/17 09:15 (Zofran Inj) 4 mg Q6H PRN IV 01/09/17 09:15 (Nitrostat Sl) 0.4 mg Q5M PRN SL 01/09/17 09:15 (Aspirin) 325 mg DAILY PO 01/10/17 09:00 Social History Known hypertension. No known diabetes or hyperlipidemia. Lifelong nonsmoker. Denies any alcohol use. Recent . Sister staying with her at this time, states her children live locally. Past cardiac testing Reports echocardiogram completed 12/18/2016-[facility]. Does not recall recent stress testing. 05/25/2011 Left heart catheterization (Dr. Gigi Hope)-Conclusion 1. Normal left ventricular function. 2. Elevated left ventricular end-diastolic pressure and arterial pressure consistent with hypertensive disease. 3. Only trivial coronary irregularities with no ischemia. Recommendations medical therapy. Beta elaine might be optimal for patients hypertensive heart disease with nonsustained ventricular tachycardia. Physical Exam Vital Signs Vital Signs Date Time Temp Pulse Resp B/P (MAP) Pulse Ox O2 Delivery O2 Flow Rate FiO2 01/09/17 12:08 98.2 60 122/53 (76) 96 01/09/17 09:56 01/09/17 08:29 78 18 155/68 (97) 100 Room Air 01/09/17 06:56 78 14 145/67 (93) 100 01/09/17 06:53 78 14 144/65 (91) 100 Room Air 01/09/17 06:44 Nasal Cannula 2.00 8/26/17 05:48 98.4 92 20 142/102 (115) 100 Room Air Physical Exam GENERAL: Alert WN, WD, NAD, friendly elderly female HEAD: NC, AT CV: RRR, 2/6 systolic murmur. no rub, no gallop, no JVD, S1-S2 no S3-S4. Chest wall nontender with palpation. RESP: Clear lungs throughout bilateral, no crackles, wheeze, rhonchi, symmetrical chest rise, nonlabored, able to speak in full sentences ABD: Soft, NT, ND, no masses, positive bowel tones EXT: Pulses +14, no dependent edema MS: Normal tone 4 extremities, nontender, no obvious deformities, full range of motion NEURO: CN II through CN XII grossly intact, motor strength 5/5 PSYCH: A+O 3, flat affect, appropriate speech, appropriate mood and affect, insight and judgment, tearful when speaking of her 's SKIN: Normal turgor, normal texture, sluggish cap refill, even hair distribution Laboratory Laboratory Tests Test 01/09/17 06:35 01/09/17 09:40 White Blood Count 8.7 Red Blood Count 3.99 Hemoglobin 12.3 Hematocrit 37.6 Mean Corpuscular Volume 94.2 Mean Corpuscular Hemoglobin 30.8 Mean Corpuscular Hemoglobin Concent 32.7 Red Cell Distribution Width 15.2 Platelet Count 288 Mean Platelet Volume 8.1 Neutrophils (%) (Auto) 79.6 Lymphocytes (%) (Auto) 14.0 Monocytes (%) (Auto) 5.6 Eosinophils (%) (Auto) 0.3 Basophils (%) (Auto) 0.5 Neutrophils # (Auto) 6.9 Lymphocytes # (Auto) 1.2 Monocytes # (Auto) 0.5 Eosinophils # (Auto) 0.0 Basophils # (Auto) 0.0 CBC Comment DIFF FINAL Differential Comment Prothrombin Time 10.0 Prothromb Time International Ratio 0.9 Activated Partial Thromboplast Time 27.2 Blood Urea Nitrogen 26 Creatinine 1.18 Random Glucose 97 Total Protein 7.4 Albumin 3.6 Calcium Level 8.8 Magnesium Level 2.3 Alkaline Phosphatase 114 Aspartate Amino Transf (AST/SGOT) 16 Alanine Aminotransferase (ALT/SGPT) 19 Total Bilirubin 0.5 Sodium Level 143 Potassium Level 3.8 Chloride Level 111 Carbon Dioxide Level 23.4 Anion Gap 9 Estimat Glomerular Filtration Rate 45 Total Creatine Kinase 39 28 Troponin I 0.02 LESS THAN 0.02 Result Diagram: 01/09/17 0635 01/09/1735 Imaging Last Impressions Chest X-Ray 01/09/17614 Signed Impressions: Service Date/Time: Monday, January 09, 2017 06:27 - CONCLUSION: Normal examination. Garcia Burr MD Course EKG Normal sinus rhythm versus Sinus arrhythmia, frequent PACs, no ST or T-segment changes Caprini VTE Risk Assessment Caprini VTE Risk Assessment: Mod/High Risk (score >= 2) Caprini Risk Assessment Model Point Value = 1 Point Value = 2 Point Value = 3 Point Value = 5 Age 41-60 Minor surgery BMI > 25 kg/m2 Swollen legs Varicose veins or History of unexplained or recurrent spontaneous Oral contraceptives or hormone replacement Sepsis (< 1 month) Serious lung disease, including pneumonia (< 1 month) Abnormal pulmonary function Acute myocardial infarction Congestive heart failure (< 1 month) History of inflammatory bowel disease Medical patient at bed rest Age 61-74 Arthroscopic surgery Major open surgery (> 45 min) Laparoscopic surgery (> 45 min) Malignancy Confined to bed (> 72 hours) Immobilizing plaster cast Central venous access Age >= 75 History of VTE Family history of VTE Factor V Leiden Prothrombin [id number] Lupus anticoagulant Anticardiolipin antibodies Elevated serum homocysteine Heparin-induced thrombocytopenia Other congenital or acquired thrombophilia Stroke (< 1 month) Elective arthroplasty Hip, pelvis, or leg fracture Acute spinal cord injury (< 1 month) Prophylaxis Regimen Total Risk Factor Score Risk Level Prophylaxis Regimen 0-1 Low Early ambulation 2 Moderate Order ONE of the following: *Sequential Compression Device (SCD) *Heparin 5000 units SQ BID 3-4 Higher Order ONE of the following medications: *Heparin 5000 units SQ TID *Enoxaparin/Lovenox 40 mg SQ daily (WT < 150 kg, CrCl > 30 mL/min) *Enoxaparin/Lovenox 30 mg SQ daily (WT < 150 kg, CrCl > 10-29 mL/min) *Enoxaparin/Lovenox 30 mg SQ BID (WT < 150 kg, CrCl > 30 mL/min) AND/OR *Sequential Compression Device (SCD) 5 or more Highest Order ONE of the following medications: *Heparin 5000 units SQ TID (Preferred with Epidurals) *Enoxaparin/Lovenox 40 mg SQ daily (WT < 150 kg, CrCl > 30 mL/min) *Enoxaparin/Lovenox 30 mg SQ daily (WT < 150 kg, CrCl > 10-29 mL/min) *Enoxaparin/Lovenox 30 mg SQ BID (WT < 150 kg, CrCl > 30 mL/min) AND *Sequential Compression Device (SCD) Assessment and Plan Assessment and Plan #1 Atypical chest pain-admitted chest pain center. Ruled out with 3 sets of EKGs and cardiac enzymes. Monitor on telemetry. Seen and evaluated by Dr. Jose Juan Haas. Complete cardiac chemical stress test in am. This has been explained to patient via separator tender services and she is agreeable to plan of care. #2 Hypertension-continue with lisinopril, hydrochlorothiazide, and amlodipine. Continue to monitor. #3 GERD-continue omeprazole #4 Situational depression-continue utilizing support from family and friends. Emergency room record reports anxiety noted and Ativan 1 mg was administered. Sangeeta Perdomo Jan 09, 2017 12:17
[2017-01-09] MEDS: HYDROCHLOROTHIAZIDE 12.5 MG CAP PO SCH (13:26)
[2017-01-09] MEDS: LISINOPRIL 20 MG TAB PO SCH (13:26)
[2017-01-09] MEDS: amLODIPine BESYLATE 5 MG TAB PO SCH (13:26)
[2017-01-09] MEDS: PANTOPRAZOLE SOD 40 MG DELAYED RELEASE TAB PO SCH (13:27)
[2017-01-09 14:34] LABS: CREATINE KINASE 44 U/L (26-192)
[2017-01-09] MEDS ORDERED: RESP: ALBUTEROL 2.5 MG/3 ML NEB (PRN) NEB (16:00)
[2017-01-09] MEDS: ACETAMINOPHEN 500 MG CPLT PO PRN (18:37)
[2017-01-09] MEDS ORDERED: SODIUM CHLORIDE 0.9% FLUSH 10 ML FLUSH IV FLUSH SCH (21:00)
[2017-01-10] VITALS (7 sets, daily range): BP systolic 96–127; BP diastolic 52–64; PULSE 65–74; RESP 18–20; TEMP 97.8–98.4; O2SAT 93–98
[2017-01-10] MEDS: ACETAMINOPHEN 500 MG CPLT PO PRN (06:16)
[2017-01-10] MEDS: amLODIPine BESYLATE 5 MG TAB PO SCH (09:00)
[2017-01-10] MEDS ORDERED: ASPIRIN 325 MG TAB PO SCH (09:00)
--- NOTE | 2017-01-10 11:09 | PD.CARD.PN ---
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 No complaints overnight. Reports hanger off headache subsided with Tylenol. Objective Vital Signs / I&O Vital Signs Date Time Temp Pulse Resp B/P (MAP) Pulse Ox O2 Delivery O2 Flow Rate FiO2 01/10/17 08:25 97.8 66 20 127/63 (84) 01/10/17 07:12 93 21 01/10/17 06:10 110/64 (79) 01/10/17 05:17 98.4 74 18 96/52 (67) 98 01/10/17 04:06 67 01/10/17 01:24 66 01/09/17 23:15 98.4 74 18 98/58 (71) 98 01/09/17 22:34 98 21 01/09/17 21:36 72 97/52 (67) 01/09/17 20:57 91/48 (62) 01/09/17 20:36 75 01/09/17 19:46 98.1 64 20 94/52 (66) 99 01/09/17 16:07 96.8 78 20 128/60 (82) 95 01/09/17 16:00 95 01/09/17 13:05 73 18 130/60 (83) 96 01/09/17 12:08 98.2 60 122/53 (76) 96 I/O 01/09/17 01/09/17 01/09/17 01/10/17 01/10/17 01/10/17 07:00 15:00 23:00 07:00 15:00 23:00 Intake Total 500 ml Balance 500 ml Intake Oral 500 ml Physical Exam GENERAL: Alert WN, WD, NAD, pleasant, [place]-speaking female CV: RRR, 2/6 systolic murmur RESP: Clear lungs throughout bilateral, nonlabored, able to speak in full sentences EXT: Pulses +24, no dependent edema NEURO: motor strength 5/5, gait WNL PSYCH: A+O 3, pleasant affect, tearful again after speaking of 's 3 months ago. Appropriate speech, appropriate mood and affect, insight and judgment. Laboratory Laboratory Tests Test 01/09/17 13:46 Total Creatine Kinase 44 U/L Troponin I LESS THAN 0.02 NG/ML Assessment and Plan Assessment and Plan Proceed with previously scheduled chemical stress test. Thoroughly explained with farmworker diversified crops assistance what to expect during Lexiscan. Time for questions and answers provided. She remains agreeable to proceed with stress test. Sangeeta Perdomo Jan 10, 2017 11:09
[2017-01-10] MEDS ORDERED: REGADENOSON INJ 0.4 MG/5 ML SYR ONE (11:20)
--- NOTE | 2017-01-10 12:26 | RADRPT ---
EXAM DATE/TIME: 01/10/2017 10:54 [facility] COMPARISON: No previous studies available for comparison. INDICATIONS : Substernal chest pain. Angina. DOSE: 25.7 mCi Tc99m Myoview at stress. 8.2 mCi Tc99m Myoview at rest. 0.4 mg Lexiscan STRESS SYMPTOMS: Short of breath. EJECTION FRACTION: > 70% MEDICAL HISTORY : Hypertension. Asthma. SURGICAL HISTORY : Cholecystectomy. ENCOUNTER: Initial ACUITY: 1 day PAIN SCALE: 3/10 LOCATION: Substernal chest TECHNIQUE: The patient underwent pharmacologic stress with infusion of prescribed dose. Continuous ECG tracing was monitored during stress. Gated SPECT imaging was performed after stress and conventional SPECT i maging was performed at rest. The examination was performed on a SPECT/CT scanner, both attenuation and non-corrected datasets were reviewed. FINDINGS: DISTRIBUTION: The maximum perfused segment at stress is in the septal wall. PERFUSION STUDY: The pattern of perfusion at stress is within normal limits. GATED STUDY: There is intact wall motion and thickening without hypokinetic or dyskinetic segments. CONCLUSION: 1. Unremarkable myocardial perfusion scan. 2. Cardiac ejection fraction approximately 70%. RISK CATEGORY: low Zain Card MD on January 10, 2017 at 12:23 Board Certified Radiologist. This report was verified electronically.
--- NOTE | 2017-01-10 12:45 | HHI.DCPOC ---
Discharge Care Plan Diagnosis: (1) Atypical chest pain Goals to Promote Your Health * To prevent worsening of your condition and complications * To maintain your health at the optimal level Directions to Meet Your Goals Take your medications as prescribed Follow your dietary instruction Follow activity as directed Keep your appointments as scheduled Take your immunizations and boosters as scheduled If your symptoms worsen call your PCP, if no PCP go to Urgent Care Center or Emergency Room Smoking is Dangerous to Your Health. Avoid second hand smoke Call the 24-hour hour crisis hotline for domestic abuse at Sangeeta Perdomo Jan 10, 2017 12:45
--- NOTE | 2017-01-10 13:10 | HHI.DS ---
Discharge Summary Admission Date Jan 09, 2017 at 08:57 Discharge Date: Jan 10, 2017 Admitting Diagnosis chest pain Brief History 77 year old female complaint of one day of chest pressure after eating. Ruled out with cardiac enzymes and EKG. Lexiscan completed, unremarkable for ischemia. CBC/BMP: 01/09/17 0635 01/09/17 0635 Significant Findings Laboratory Tests Test 01/09/17 06:35 01/09/17 09:40 01/09/17 13:46 Red Blood Count 3.99 MIL/MM3 (4.00-5.30) Neutrophils (%) (Auto) 79.6 % (16.0-70.0) Blood Urea Nitrogen 26 MG/DL (7-18) Creatinine 1.18 MG/DL (0.50-1.00) Chloride Level 111 MEQ/L (98-107) Estimat Glomerular Filtration Rate 45 ML/MIN (>89) Troponin I LESS THAN 0.02 NG/ML LESS THAN 0.02 NG/ML Imaging Last Impressions Myocardial Perfusion Scan Nuc Med 01/10/17 0000 Signed Impressions: Service Date/Time: Tuesday, January 10, 2017 10:54 - CONCLUSION: 1. Unremarkable myocardial perfusion scan. 2. Cardiac ejection fraction approximately 70%%. RISK CATEGORY: low Zain Card MD Chest X-Ray 01/09/17 0615 Signed Impressions: Service Date/Time: Monday, January 09, 2017 06:27 - CONCLUSION: Normal examination. Garcia Burr MD Pt Condition on Discharge: Good Discharge Disposition: Discharge Home Discharge Instructions DIET: Follow Instructions for: Heart Healthy Diet Activities you can perform: Regular-No Restrictions Sangeeta Perdomo Jan 10, 2017 13:10
[2017-01-10] MEDS: HYDROCHLOROTHIAZIDE 12.5 MG CAP PO SCH (13:35)
[2017-01-10] MEDS: LISINOPRIL 20 MG TAB PO SCH (13:36)
[2017-01-10] MEDS: PANTOPRAZOLE SOD 40 MG DELAYED RELEASE TAB PO SCH (13:36)
--- NOTE | 2017-01-11 11:02 | EKG ---
Date Performed: 01/09/2017 Time Performed: 13:26:36 PTAGE: 77 years EKG: Sinus rhythm NORMAL ECG PREVIOUS TRACING : 01/09/2017 06.20 Since previous tracing, no significant change noted DOCTOR: Jose Juan Haas Interpretating Date/Time 01/11/2017 11:01:47
--- NOTE | 2017-01-11 11:05 | EKG ---
Date Performed: 01/09/2017 Time Performed: 09:49:35 PTAGE: 77 years EKG: Sinus rhythm WITH OCCASIONAL ECTOPIC PREMATURE COMPLEXES BORDERLINE ECG PREVIOUS TRACING : 01/09/2017 06.20 Since previous tracing, no significant change noted DOCTOR: JoseJ uan Haas Interpretating Date/Time 01/11/2017 11:03:20
--- NOTE | 2017-01-11 11:09 | EKG ---
Date Performed: 01/09/2017 Time Performed: 06:20:56 PTAGE: 77 years EKG: Sinus rhythm WITH SHORT FL INTERVAL WITH FREQUENT SUPRAVENTRICULAR PREMATURE COMPLEXES ABNORMAL RHYTHM ECG NO PREVIOUS TRACING DOCTOR: Jose Juan Haas Interpretating Date/Time 01/11/2017 11:07:46
--- NOTE | 2017-01-11 12:08 | TR ---
Date Performed: 01/10/2017 Time Performed: 11:35:27 DOCTOR: Jose Juan Haas DRUG LIST: CLINICAL HISTORY: REASON FOR TEST: REASON FOR ENDING: OBSERVATION: CONCLUSION: Lexiscan stress test was performed under standard four minute protocol. Radionuclid e was injected one minute prior to ending the test. No electrocardiographic abormalities were present to suggest ischemia. Nuclear imaging and interpretation are pending. COMMENTS:
== END 2017-01-10 13:53 | disposition home or self-care (01) ==
LOC: NEPE 05:47 → NEDA 08:57 → NEPGCP 10:08
PROVIDERS: ADMIT Internal Medicine Cardiovascular Disease; ATTEND Internal Medicine Cardiovascular Disease
DX: R07.89 Other chest pain (principal); R94.31 Abnormal electrocardiogram [ECG] [EKG]; I10 Essential (primary) hypertension; K21.9 Gastro-esophageal reflux disease without esophagitis
CPT/HCPCS: 71010; 78452; 80053; 82550; 83735; 84484; 85025; 85610; 85730; 93005; 93017; 96374; 99285; A9502; G0378; J2060; J2785

== ENCOUNTER 2017-06-20 09:17 | Emergency (ER) | payer OTHER ==
[~2017-06-20] VITALS: Ht 160 cm; Wt 75.0 kg
[~2017-06-20 09:17] MED LIST changes: +AMLO5TAB2 PO; -AMOX500T PO; +GETGO ROLLING W1 MI1; +HYDR-3580 PO; -HYDROMET PO; +LIDO1ADH4 T-DERMAL; -LIDO5DIS5 T-DERMAL; +LISI-515 PO; -PRED5TAB PO; -TOPR25TA2 PO
[2017-06-20 09:19] VITALS: BP 167/71; PULSE 70; RESP 18; TEMP 99.7; O2SAT 99
--- NOTE | 2017-06-20 09:58 | PD ---
HPI Chief Complaint: Chest Pain Time Seen by Provider: 09:33 Travel History International Travel<30 days: No Contact w/Intl Traveler<30days: No Traveled to known affect area: No History of Present Illness HPI 77-year-old woman who presents to the emergency department complaining of feeling sick. She has had cough cold symptoms for the past several days. Saw her primary doctor on and was given a prescription for azithromycin. She is continue to have cough cold, runny nose, headache, and now is having some chest pain, shortness of breath, and body aches. No definite fevers. No definite sick contacts. She otherwise had been feeling generally well prior to this. History Past Medical History Narrative Medical Pancreatic mass, thought to be benign Scleroderma Hypertension Rheumatoid arthritis Influenza Vaccination: Yes PNEUMOCCOCAL Vaccine (Year): 1 Menopausal: Yes : 5 Para: 5 Social History Alcohol Use: No Tobacco Use: No Allergies-Medications (Allergen,Severity, Reaction): Coded Allergies: iodine (Verified Allergy, Severe, Anaphylaxis, 06/20/17) iodine (Unverified Allergy, Severe, 06/20/17) potassium iodide (Unverified Allergy, Severe, 06/20/17) povidone-iodine (Unverified Allergy, Severe, 06/20/17) sodium iodide (Unverified Allergy, Severe, 06/20/17) sodium iodide (Unverified Allergy, Severe, 06/20/17) diatrizoate meglumine (Unverified Allergy, Unknown, RASHES/THROAT SWELLING , 06/20/17) gadobenic acid (Unverified Allergy, Unknown, RASHES/THROAT SWELLING, ) gadodiamide (Unverified Allergy, Unknown, RASHES/THROAT SWELLING, 06/20/17) gadoteridol (Unverified Allergy, Unknown, RASHES/THROAT SWELLING, 06/20/17) iodixanol (Unverified Allergy, Unknown, RASHES/THROAT SWELLING, 06/20/17) iohexol (Unverified Allergy, Unknown, RASHES/THROAT SWELLING, 06/20/17) Reported Meds & Prescriptions Reported Meds & Active Scripts Active Lidoderm (Lidocaine) 5 % Adh..patch 1 Patch T-DERMAL DAILY PRN Hydrochlorothiazide 12.5 Mg Cap 12.5 Mg PO DAILY Norvasc (Amlodipine Besylate) 5 Mg Tab 5 Mg PO DAILY Walker Rolling/GetGo (Device) 1 Mis Mis 1 Ea .ROUTE DIRECTED Hydrocodone-Acetaminophen 7.5-325 mg Tab 1 Tab PO Q4H PRN Reported Prevacid (Lansoprazole) 30 Mg Capdr 30 Mg PO DAILY Ventolin Hfa 18 GM Inh (Albuterol Sulfate) 90 Mcg/Act Aer 2 Puff INH Q4-6H PRN Methotrexate 2.5 Mg Tab 8 Tab PO Q7D Lisinopril 40 Mg Tab 40 Mg PO DAILY Lisinopril 20 Mg Tab 20 Mg PO DAILY Amlodipine (Amlodipine Besylate) 5 Mg Tab 5 Mg PO DAILY Methotrexate 2.5 Mg Tab 20 Mg PO Q7D Review of Systems Except as stated in HPI: all other systems reviewed are Neg Physical Exam Narrative GENERAL: Well-appearing 77-year-old woman, no acute distress. SKIN: Focused skin assessment warm/dry. HEAD: Atraumatic. Normocephalic. EYES: Pupils equal and round. No scleral icterus. No injection or drainage. ENT: No nasal bleeding or discharge. Mucous membranes pink and moist. TMs unremarkable bilaterally. Throat is normal. NECK: Trachea midline. No JVD. CARDIOVASCULAR: Regular rate and rhythm. No murmur appreciated. RESPIRATORY: No accessory muscle use. Clear to auscultation. Breath sounds equal bilaterally. GASTROINTESTINAL: Abdomen soft, non-tender, nondistended. Hepatic and splenic margins not palpable. MUSCULOSKELETAL: No obvious deformities. No clubbing. No cyanosis. No edema. NEUROLOGICAL: Awake and alert. No obvious cranial nerve deficits. Motor grossly within normal limits. Normal speech. PSYCHIATRIC: Appropriate mood and affect; insight and judgment normal. Data Data Last Documented VS Vital Signs Date Time Temp Pulse Resp B/P (MAP) Pulse Ox O2 Delivery O2 Flow Rate FiO2 06/20/17 10:27 72 20 98 06/20/17 10:27 Room Air 06/20/17 09:19 99.7 Orders Orders Complete Blood Count With Diff (06/20/17 09:47) Comprehensive Metabolic Panel (06/20/17 09:47) Troponin I (06/20/17 09:47) Influenzae A/B Antigen (06/20/17 09:47) Iv Access Insert/Monitor (06/20/17 09:47) Electrocardiogram (06/20/17 09:47) Ecg Monitoring (06/20/17 09:47) Oximetry (06/20/17 09:47) Oxygen Administration (06/20/17 09:47) Chest, Single Ap (06/20/17 09:47) Sodium Chloride 0.9% Flush (Ns Flush) (06/20/17 10:00) Sodium Chlorid 0.9% 500 Ml Inj (Ns 500 M (06/20/17 10:00) Acetaminophen (Tylenol) (06/20/17 11:00) Labs Laboratory Tests Test 06/20/17 09:51 White Blood Count 6.7 TH/MM3 Red Blood Count 4.24 MIL/MM3 Hemoglobin 13.1 GM/DL Hematocrit 39.4 % Mean Corpuscular Volume 93.0 FL Mean Corpuscular Hemoglobin 30.9 PG Mean Corpuscular Hemoglobin Concent 33.3 % Red Cell Distribution Width 15.9 % Platelet Count 244 TH/MM3 Mean Platelet Volume 8.3 FL Neutrophils (%) (Auto) 75.7 % Lymphocytes (%) (Auto) 13.6 % Monocytes (%) (Auto) 9.5 % Eosinophils (%) (Auto) 1.0 % Basophils (%) (Auto) 0.2 % Neutrophils # (Auto) 5.1 TH/MM3 Lymphocytes # (Auto) 0.9 TH/MM3 Monocytes # (Auto) 0.6 TH/MM3 Eosinophils # (Auto) 0.1 TH/MM3 Basophils # (Auto) 0.0 TH/MM3 CBC Comment DIFF FINAL Differential Comment Blood Urea Nitrogen 19 MG/DL Creatinine 1.22 MG/DL Random Glucose 89 MG/DL Total Protein 7.9 GM/DL Albumin 4.1 GM/DL Calcium Level 8.8 MG/DL Alkaline Phosphatase 121 U/L Aspartate Amino Transf (AST/SGOT) 24 U/L Alanine Aminotransferase (ALT/SGPT) 17 U/L Total Bilirubin 0.4 MG/DL Sodium Level 139 MEQ/L Potassium Level 4.3 MEQ/L Chloride Level 108 MEQ/L Carbon Dioxide Level 24.7 MEQ/L Anion Gap 6 MEQ/L Estimat Glomerular Filtration Rate 43 ML/MIN Troponin I LESS THAN 0.02 NG/ML MDM Medical Decision Making Medical Screen Exam Complete: Yes Emergency Medical Condition: Yes Interpretation(s) LABS: CBC is unremarkable. CMP is unremarkable Troponin is negative. Chest x-ray: Negative. Differential Diagnosis Flulike symptoms, pneumonia, URI, ACS, PE, pneumothorax, other Narrative Course Medical decision making INITIAL: This is a 77-year-old woman who presents to the emergency department with worsening URI symptoms leading now to headache body aches shortness of breath and chest pain. Benign exam. Will check x-ray, flu swab, electrolyte, reassess. Diagnosis Primary Impression: Influenza-like illness Additional Instructions: Drink plenty of fluids and stay well-hydrated. Use acetaminophen or ibuprofen as needed for pain. Return to the emergency department for any new or worsening symptoms. Disposition: 01 DISCHARGE HOME Condition: Stable Garcia Flores MD Jun 20, 2017 09:58
[2017-06-20] MEDS ORDERED: SODIUM CHLORID 0.9% 500 ML INJ 500 ML IV ONE (10:00)
[2017-06-20] MEDS ORDERED: SODIUM CHLORIDE 0.9% FLUSH 10 ML FLUSH IVF PRN (10:00)
[2017-06-20 10:07] LABS: AUTOMATED NEUTROPHIL # 5.1 TH/MM3 (1.8-7.7); BASOPHIL % 0.2 % (0.0-2.0); EOSINOPHIL # 0.1 TH/MM3 (0-0.4); HEMATOCRIT 39.4 % (35.0-46.0); HEMOGLOBIN 13.1 GM/DL (11.6-15.3); LYMPH % 13.6 % (9.0-44.0); LYMPHOCYTE # 0.9 TH/MM3 (1.0-4.8); MEAN CORPUSCULAR HEMOGLOBIN 30.9 PG (27.0-34.0); MEAN CORPUSCULAR HGB CONC 33.3 % (32.0-36.0); MEAN PLATELET VOLUME 8.3 FL (7.0-11.0); MONO % 9.5 % (0.0-8.0); MONOCYTE # 0.6 TH/MM3 (0-0.9); NEUT % 75.7 % (16.0-70.0); PLATELET COUNT 244 TH/MM3 (150-450); RED BLOOD COUNT 4.24 MIL/MM3 (4.00-5.30); RED CELL DISTRIBUTION WIDTH 15.9 % (11.6-17.2); WHITE BLOOD COUNT 6.7 TH/MM3 (4.0-11.0)
[2017-06-20 10:27] VITALS: PULSE 72; RESP 20; O2SAT 98
[2017-06-20 10:36] LABS: ALKALINE PHOSPHATASE 121 U/L (45-117); TOTAL BILIRUBIN ADULT 0.4 MG/DL (0.2-1.0); TOTAL PROTEIN 7.9 GM/DL (6.4-8.2); TROPONIN I LESS THAN 0.02 NG/ML (0.02-0.05)
[2017-06-20 10:51] LABS: ALBUMIN 4.1 GM/DL (3.4-5.0); ALT (GPT) 17 U/L (10-53); AST (GOT) 24 U/L (15-37); BICARBONATE 24.7 MEQ/L (21.0-32.0); BLOOD UREA NITROGEN 19 MG/DL (7-18); CALCIUM 8.8 MG/DL (8.5-10.1); CHLORIDE 108 MEQ/L (98-107); CREATININE 1.22 MG/DL (0.50-1.00); GLOMERULAR FILTRATION RATE 43 ML/MIN (>89); GLUCOSE,RANDOM 89 MG/DL (74-106); SODIUM (NA) 139 MEQ/L (136-145)
[2017-06-20] MEDS ORDERED: ACETAMINOPHEN 500 MG CPLT PO ONE (11:00)
--- NOTE | 2017-06-20 11:00 | RADRPT ---
EXAM DATE/TIME: 06/20/2017 10:31 [facility] COMPARISON: CHEST SINGLE AP, January 09, 2017, 6:27. INDICATIONS : Shortness of breath for 1 day. MEDICAL HISTORY : None. SURGICAL HISTORY : None. ENCOUNTER: Initial ACUITY: 1 day PAIN SCORE: 0/10 LOCATION: Bilateral chest FINDINGS: A single view of the chest demonstrates the lungs to be symmetrically aerated without evidence of mas s, infiltrate or effusion. The cardiomediastinal contours are unremarkable. Osseous structures are intact. CONCLUSION: No acute disease. Barry Portillo MD on June 20, 2017 at 10:58 Board Certified Radiologist. This report was verified electronically.
--- NOTE | 2017-06-20 12:34 | EKG ---
Date Performed: 06/20/2017 Time Performed: 09:30:40 PTAGE: 77 years EKG: Sinus rhythm NORMAL ECG Since PREVIOUS TRACING , no significant change noted PREVIOUS TRACIN01/09/2017 13.26.36 DOCTOR: Eddie Vaughan Interpretating Date/Time 06/20/2017 12:33:10
== END 2017-06-20 11:43 | disposition home or self-care (01) ==
LOC: NEPE 09:17
DX: R51 Headache (principal); R52 Pain, unspecified; R06.02 Shortness of breath; R07.9 Chest pain, unspecified; R05 Cough; R09.89 Other specified symptoms and signs involving the circulatory and respiratory systems; I10 Essential (primary) hypertension; M06.9 Rheumatoid arthritis, unspecified; Z79.899 Other long term (current) drug therapy
CPT/HCPCS: 71045; 80053; 84484; 85025; 87804; 93005; 99285; J7040

== ENCOUNTER 2017-06-29 07:19 | Emergency (ER) | payer OTHER ==
[~2017-06-29] VITALS: Ht 160 cm; Wt 75.0 kg
[2017-06-29 07:20] VITALS: BP 165/72; PULSE 61; RESP 16; TEMP 98.1; O2SAT 99
[2017-06-29] MEDS ORDERED: SODIUM CHLORIDE 0.9% FLUSH 10 ML FLUSH IV FLUSH PRN (08:00)
--- NOTE | 2017-06-29 08:00 | PD ---
HPI Chief Complaint: GI Complaint Time Seen by Provider: 07:45 Travel History International Travel<30 days: No Contact w/Intl Traveler<30days: No Traveled to known affect area: No History of Present Illness HPI The patient was seen and examined in the presence of the nurse. This patient complains of abdominal pain and back pain. Duration 3 days. Severity is moderate. She has nausea but no vomiting or diarrhea or fever. She is a English speaker. Her son provides excellent translation and he does not feel formal services are necessary. There is been no injury. She has no urinary complaints. She does have history of pancreatitis. Location of pain is epigastric. She does not have alcohol abuse. She has no gallbladder. No alleviating factors. No exacerbating factors. PFSH Past Medical History Arthritis: No Asthma: Yes Autoimmune Disease: No Blood Disorders: No Heart Rhythm Problems: No Cancer: No Cardiac Catheterization: No Cardiovascular Problems: No High Cholesterol: No Chest Pain: Yes Congestive Heart Failure: No COPD: No Diabetes: No Diminished Hearing: No Endocrine: No Gastrointestinal Disorders: Yes GERD: Yes Genitourinary: No Hiatal Hernia: No Heparin Induced Thrombocytopen: No Hypertension: Yes Immune Disorder: No Implanted Vascular Access Dvce: No Musculoskeletal: Yes Neurologic: No Psychiatric: No Reproductive: No Respiratory: Yes Immunizations Current: Yes 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) Sleep Apnea: No Thyroid Disease: No Ulcer: No PNEUMOCCOCAL Vaccine (Year): 1 ?: Not Menopausal: Yes : 5 Para: 5 Past Surgical History Abdominal Surgery: Yes (cholecystectomy) Cardiac Surgery: No Cholecystectomy: Yes Coronary Artery Bypass Graft: No Ear Surgery: No Endocrine Surgery: No Eye Surgery: No Genitourinary Surgery: No Gynecologic Surgery: No Joint Replacement: Yes (left knee 06/2011) Oral Surgery: No Thoracic Surgery: No Other Surgery: Yes (right knee) Social History Alcohol Use: No Tobacco Use: No Substance Use: No Allergies-Medications (Allergen,Severity, Reaction): Coded Allergies: iodine (Verified Allergy, Severe, Anaphylaxis, 06/20/17) iodine (Unverified Allergy, Severe, 06/20/17) potassium iodide (Unverified Allergy, Severe, 06/20/17) povidone-iodine (Unverified Allergy, Severe, 06/20/17) sodium iodide (Unverified Allergy, Severe, 06/20/17) sodium iodide (Unverified Allergy, Severe, 06/20/17) diatrizoate meglumine (Unverified Allergy, Unknown, RASHES/THROAT SWELLING , 06/20/17) gadobenic acid (Unverified Allergy, Unknown, RASHES/THROAT SWELLING, ) gadodiamide (Unverified Allergy, Unknown, RASHES/THROAT SWELLING, 06/20/17) gadoteridol (Unverified Allergy, Unknown, RASHES/THROAT SWELLING, 06/20/17) iodixanol (Unverified Allergy, Unknown, RASHES/THROAT SWELLING, 06/20/17) iohexol (Unverified Allergy, Unknown, RASHES/THROAT SWELLING, 06/20/17) Reported Meds & Prescriptions Reported Meds & Active Scripts Active Lidoderm (Lidocaine) 5 % Adh..patch 1 Patch T-DERMAL DAILY PRN Hydrochlorothiazide 12.5 Mg Cap 12.5 Mg PO DAILY Norvasc (Amlodipine Besylate) 5 Mg Tab 5 Mg PO DAILY Walker Rolling/GetGo (Device) 1 Mis Mis 1 Ea .ROUTE DIRECTED Hydrocodone-Acetaminophen 7.5-325 mg Tab 1 Tab PO Q4H PRN Reported Prevacid (Lansoprazole) 30 Mg Capdr 30 Mg PO DAILY Ventolin Hfa 18 GM Inh (Albuterol Sulfate) 90 Mcg/Act Aer 2 Puff INH Q4-6H PRN Methotrexate 2.5 Mg Tab 8 Tab PO Q7D Lisinopril 40 Mg Tab 40 Mg PO DAILY Lisinopril 20 Mg Tab 20 Mg PO DAILY Amlodipine (Amlodipine Besylate) 5 Mg Tab 5 Mg PO DAILY Methotrexate 2.5 Mg Tab 20 Mg PO Q7D Review of Systems General / Constitutional: No: Fever Eyes: No: Visual changes HENT: No: Headaches Cardiovascular: No: Chest Pain or Discomfort Respiratory: No: Shortness of Breath Gastrointestinal: Positive: Nausea, Abdominal Pain Genitourinary: No: Dysuria Musculoskeletal: Positive: Pain Skin: No Rash Neurologic: No: Weakness Psychiatric: No: Depression Endocrine: No: Polydipsia Hematologic/Lymphatic: No: Easy Bruising Physical Exam Narrative GENERAL: Well-nourished, well-developed patient in no apparent distress. SKIN: Focused skin assessment reveals no rash and nodules. Skin is Warm and dry. HEAD: Atraumatic. Normocephalic. EYES: Pupils equal and round. No scleral icterus. No injection or drainage. ENT: No nasal bleeding or discharge. Mucous membranes pink and moist. NECK: Trachea midline. No JVD. CARDIOVASCULAR: Regular rate and rhythm. No murmur appreciated. RESPIRATORY: No accessory muscle use. Clear to auscultation. Breath sounds equal bilaterally. GASTROINTESTINAL: Abdomen soft, non-tender, nondistended. Hepatic and splenic margins not palpable. MUSCULOSKELETAL: No obvious deformities. No clubbing. No cyanosis. No edema. NEUROLOGICAL: Awake and alert. No obvious cranial nerve deficits. Motor grossly within normal limits. Normal speech. PSYCHIATRIC: Appropriate mood and affect; insight and judgment normal. Data Data Last Documented VS Vital Signs Date Time Temp Pulse Resp B/P (MAP) Pulse Ox O2 Delivery O2 Flow Rate FiO2 06/29/17 07:20 98.1 61 16 165/72 (103) 99 Room Air Orders Orders Complete Blood Count With Diff (06/29/17 07:53) Comprehensive Metabolic Panel (06/29/17 07:53) Lipase (06/29/17 07:53) Urinalysis - C+S If Indicated (06/29/17 07:53) Iv Access Insert/Monitor (06/29/17 07:53) Ecg Monitoring (06/29/17 07:53) Oximetry (06/29/17 07:53) Sodium Chloride 0.9% Flush (Ns Flush) (06/29/17 08:00) Chest, Single Ap (06/29/17 07:53) Ct Abd/Pel W/O Iv Contrast (06/29/17 ) Labs Laboratory Tests Test 06/29/17 08:00 06/29/17 08:59 White Blood Count 5.7 TH/MM3 Red Blood Count 3.90 MIL/MM3 Hemoglobin 11.9 GM/DL Hematocrit 35.7 % Mean Corpuscular Volume 91.5 FL Mean Corpuscular Hemoglobin 30.6 PG Mean Corpuscular Hemoglobin Concent 33.4 % Red Cell Distribution Width 15.7 % Platelet Count 259 TH/MM3 Mean Platelet Volume 7.5 FL Neutrophils (%) (Auto) 67.6 % Lymphocytes (%) (Auto) 21.2 % Monocytes (%) (Auto) 9.9 % Eosinophils (%) (Auto) 1.0 % Basophils (%) (Auto) 0.3 % Neutrophils # (Auto) 3.9 TH/MM3 Lymphocytes # (Auto) 1.2 TH/MM3 Monocytes # (Auto) 0.6 TH/MM3 Eosinophils # (Auto) 0.1 TH/MM3 Basophils # (Auto) 0.0 TH/MM3 CBC Comment DIFF FINAL Differential Comment Blood Urea Nitrogen 28 MG/DL Creatinine 1.26 MG/DL Random Glucose 93 MG/DL Total Protein 6.6 GM/DL Albumin 3.5 GM/DL Calcium Level 8.6 MG/DL Alkaline Phosphatase 111 U/L Aspartate Amino Transf (AST/SGOT) 15 U/L Alanine Aminotransferase (ALT/SGPT) 15 U/L Total Bilirubin 0.5 MG/DL Sodium Level 142 MEQ/L Potassium Level 4.6 MEQ/L Chloride Level 109 MEQ/L Carbon Dioxide Level 27.0 MEQ/L Anion Gap 6 MEQ/L Estimat Glomerular Filtration Rate 41 ML/MIN Lipase 155 U/L Urine Color YELLOW Urine Turbidity CLEAR Urine pH 6.0 Urine Specific [place] 1.013 Urine Protein NEG mg/dL Urine Glucose (UA) NEG mg/dL Urine Ketones NEG mg/dL Urine Occult Blood NEG Urine Nitrite NEG Urine Bilirubin NEG Urine Urobilinogen LESS THAN 2.0 MG/DL Urine Leukocyte Esterase NEG Urine RBC 1 /hpf Urine WBC 2 /hpf Urine Squamous Epithelial Cells 3 /hpf Urine Hyaline Casts 1 /lpf Microscopic Urinalysis Comment CULT NOT INDICATED MDM Medical Decision Making Medical Screen Exam Complete: Yes Emergency Medical Condition: Yes Medical Record Reviewed: Yes Differential Diagnosis Pancreatitis, colitis, kidney stone, disc herniation Narrative Course I have reviewed the patient's electronic medical record. Patient was admitted for chest pain last year as well as a pancreatitis 0800: Patient is evaluated. Etiology of her pain is unclear from history and exam. I've ordered a workup 30: General blood counts metabolic studies normal including lipase 950: I reviewed her chest x-ray which shows nothing emergent 11:00: I reviewed CT of abdomen and pelvis with son and patient. Discussed her December 2016 admission and finding of pancreatic head mass. She does follow with a family physician and the son says that the family physician is aware of the mass and they haven't found any cancer at this point. Mass today is similar to appearance of 6 months ago Is also a nonobstructive stone She is stable for outpatient follow-up I wrote him 15 tramadol to use as needed Diagnosis Primary Impression: Abdominal pain Qualified Codes: R10.13 - Epigastric pain Additional Impressions: Back pain Qualified Codes: M54.9 - Dorsalgia, unspecified Pancreatic mass Additional Instructions: The patient was advised to follow up with their physician and return if they worsen. The patient was warned about potential sedation for the medications they will receive on prescription. Med/Other Pt SpecificInfo: Prescription(s) given Scripts Tramadol (Tramadol) 50 Mg Tab 50 MG PO Q6H Y for PAIN, #15 TAB 0 Refills Prov: Polo Cardenas MD 06/29/17 Disposition: DISCHARGE HOME Condition: Stable Polo Cardenas MD Jun 29, 2017 08:00
[2017-06-29 08:13] LABS: AUTOMATED NEUTROPHIL # 3.9 TH/MM3 (1.8-7.7); BASOPHIL % 0.3 % (0.0-2.0); EOSINOPHIL # 0.1 TH/MM3 (0-0.4); HEMATOCRIT 35.7 % (35.0-46.0); HEMOGLOBIN 11.9 GM/DL (11.6-15.3); LYMPH % 21.2 % (9.0-44.0); LYMPHOCYTE # 1.2 TH/MM3 (1.0-4.8); MEAN CELL VOLUME 91.5 FL (80.0-100.0); MEAN CORPUSCULAR HEMOGLOBIN 30.6 PG (27.0-34.0); MEAN CORPUSCULAR HGB CONC 33.4 % (32.0-36.0); MEAN PLATELET VOLUME 7.5 FL (7.0-11.0); MONO % 9.9 % (0.0-8.0); MONOCYTE # 0.6 TH/MM3 (0-0.9); NEUT % 67.6 % (16.0-70.0); PLATELET COUNT 259 TH/MM3 (150-450); RED CELL DISTRIBUTION WIDTH 15.7 % (11.6-17.2); WHITE BLOOD COUNT 5.7 TH/MM3 (4.0-11.0)
[2017-06-29 08:34] LABS: ALBUMIN 3.5 GM/DL (3.4-5.0); ALT (GPT) 15 U/L (10-53); AST (GOT) 15 U/L (15-37); BLOOD UREA NITROGEN 28 MG/DL (7-18); CALCIUM 8.6 MG/DL (8.5-10.1); CHLORIDE 109 MEQ/L (98-107); CREATININE 1.26 MG/DL (0.50-1.00); GLOMERULAR FILTRATION RATE 41 ML/MIN (>89); GLUCOSE,RANDOM 93 MG/DL (74-106); SODIUM (NA) 142 MEQ/L (136-145)
[2017-06-29 08:37] LABS: ALKALINE PHOSPHATASE 111 U/L (45-117); TOTAL BILIRUBIN ADULT 0.5 MG/DL (0.2-1.0); TOTAL PROTEIN 6.6 GM/DL (6.4-8.2)
--- NOTE | 2017-06-29 09:01 | RADRPT ---
EXAM DATE/TIME: 06/29/2017 08:00 [facility] COMPARISON: CHEST SINGLE AP, June 20, 2017, 10:31. INDICATIONS : Chest pain. MEDICAL HISTORY : Cardiovascular disease. Hypertension Asthma. SURGICAL HISTORY : Cholecystectomy. ENCOUNTER: Initial ACUITY: 1 day PAIN SCORE: 6/10 LOCATION: Left upper chest FINDINGS: A single view of the chest demonstrates the lungs to be symmetrically aerated without evidence of mas s, infiltrate or effusion. The cardiomediastinal contours are unremarkable. Osseous structures are intact. CONCLUSION: 1. No acute cardiopulmonary disease. Juan Carlos Best MD on June 29, 2017 at 8:58 Board Certified Radiologist. This report was verified electronically.
--- NOTE | 2017-06-29 09:10 | RADRPT ---
EXAM DATE/TIME: 06/29/2017 08:40 [facility] COMPARISON: CT ABDOMEN & PELVIS W/O CONTRAST, March 28, 2009, 17:58. CT ABDOMEN & PELVIS W/O CONTRAST, November 152016, 9:42. INDICATIONS : Abdominal pain with nausea. ORAL CONTRAST: No oral contrast ingested. RADIATION DOSE: 8.72 CTDIvol (mGy) MEDICAL HISTORY : Hypertension. Gastroesophageal reflux disease. Carcinoma, pancreas. SURGICAL HISTORY : Cholecystectomy. ENCOUNTER: Initial ACUITY: 3 days PAIN SCALE: 7/10 LOCATION: Bilateral Abdomen TECHNIQUE: Volumetric scanning of the abdomen and pelvis was performed. Using automated exposure control and ad justment of the mA and/or kV according to patient size, radiation dose was kept as low as reasonably achievable to obtain optimal diagnostic quality images. DICOM format image data is available electro nically for review and comparison. FINDINGS: LOWER LUNGS: There is a 3 mm oval-shaped nodule within the lateral basilar segment of the left lower lobe. This is new from the 2008 exam. This portion the lungs was not seen on the more prior study. Calcified ather osclerotic disease involving the coronary arteries. Extensive calcifications involving the mitral stanley ve. LIVER: Homogeneous density without lesion. There is no dilation of the biliary tree. The common bile but me asures 7 mm in diameter which is within the normal range for patient of this age. No calcified gallst ones. SPLEEN: Normal size without lesion. PANCREAS: Again seen is a low density mass involving the head of the pancreas. It measures 4.2 x 2.7 cm which i s slightly larger than the prior study where it measured 3.7 x 2.6 cm. There is an obstructing compon ent of the pancreatic duct which reaches a maximum diameter of 7 mm. This is unchanged. KIDNEYS: A 5 mm nonobstructing right renal calculus is again seen. A 3.4 cm cortical cyst is seen involving th e right kidney. Left kidney is unremarkable. ADRENAL GLANDS: Within normal limits. VASCULAR: There is no aortic aneurysm. BOWEL/MESENTERY: The stomach, small bowel, and colon demonstrate no acute abnormality. There is no free intraperitone al air or fluid. Scattered colonic diverticuli. No acute inflammation. ABDOMINAL WALL: Within normal limits. RETROPERITONEUM: There is no lymphadenopathy. BLADDER: No wall thickening or mass. REPRODUCTIVE: Within normal limits. INGUINAL: There is no lymphadenopathy or hernia. MUSCULOSKELETAL: Within normal limits for patient age. CONCLUSION: 1. Slight increase in size of the pancreatic head mass measuring 4.2 x 2.7 cm. Dilatation of the panc reatic duct is stable. No dilatation of the common bile duct seen on the current study. This pancreat ic head mass has been previously evaluated with MRCP. Please see a separately. 2. Colonic diverticulosis without acute inflammation. 3. 5 mm nonobstructing right renal stone. 4. 3 mm left lower lobe pulmonary nodule is new from 2008 exam. This portion the lungs was not visu alized on the most recent prior study. Consideration could be made to short-term followup exam to doc ument stability. Luís Bolton Jr., MD on June 29, 2017 at 8:58 Board Certified Radiologist. This report was verified electronically.
[2017-06-29 09:19] LABS: BILIRUBIN, URINE NEG (NEG); BLOOD, URINE NEG (NEG); GLUCOSE,URINE NEG (NEG); HYALINE CAST, URINE 1 /lpf (RARE); KETONE, URINE NEG (NEG); NITRITE,URINE NEG (NEG); SQUAMOUS EPITHELIAL CELL URINE 3 /hpf (0-5); URINE COLOR YELLOW (YELLW/STRAW); URINE LEUKOCYTE ESTERASE NEG (NEG)
[2017-06-29] MEDS ORDERED: TRAM50TA PO (11:04)
== END 2017-06-29 11:30 | disposition home or self-care (01) ==
LOC: NEPC 07:19
DX: R10.13 Epigastric pain (principal); M54.9 Dorsalgia, unspecified; K86.9 Disease of pancreas, unspecified; J45.909 Unspecified asthma, uncomplicated; I10 Essential (primary) hypertension; Z88.8 Allergy status to other drugs, medicaments and biological substances
CPT/HCPCS: 71045; 74176; 80053; 81001; 83690; 85025; 99285

== ENCOUNTER 2017-10-31 14:30 | Emergency (ER) | payer OTHER ==
[~2017-10-31] VITALS: Ht 160 cm; Wt 75.0 kg
[~2017-10-31 14:30] MED LIST changes: +TRAM50TA PO
[2017-10-31 14:40] VITALS: BP 190/81; PULSE 62; RESP 18; TEMP 98.6; O2SAT 100
[2017-10-31] MEDS ORDERED: SODIUM CHLOR 0.9% 1000 ML INJ 1,000 ML IV SCH (15:50)
[2017-10-31 15:55] VITALS: RESP 16; O2SAT 96
[2017-10-31] MEDS ORDERED: ONDANSETRON ODT 4 MG TAB PO ONE (16:00)
[2017-10-31] MEDS ORDERED: SODIUM CHLORIDE 0.9% FLUSH 10 ML FLUSH IV FLUSH PRN (16:00)
[2017-10-31] MEDS ORDERED: OMEP40CA2 (16:07)
[2017-10-31 16:19] LABS: AUTOMATED NEUTROPHIL # 8.2 TH/MM3 (1.8-7.7); BASOPHIL # 0.1 TH/MM3 (0-0.2); BASOPHIL % 0.7 % (0.0-2.0); EOSINOPHIL # 0.1 TH/MM3 (0-0.4); EOSINOPHIL % 0.7 % (0.0-4.0); HEMATOCRIT 34.5 % (35.0-46.0); HEMOGLOBIN 11.6 GM/DL (11.6-15.3); LYMPH % 14.4 % (9.0-44.0); LYMPHOCYTE # 1.5 TH/MM3 (1.0-4.8); MEAN CELL VOLUME 92.9 FL (80.0-100.0); MEAN CORPUSCULAR HEMOGLOBIN 31.2 PG (27.0-34.0); MEAN CORPUSCULAR HGB CONC 33.6 % (32.0-36.0); MEAN PLATELET VOLUME 8.4 FL (7.0-11.0); MONO % 6.3 % (0.0-8.0); MONOCYTE # 0.7 TH/MM3 (0-0.9); NEUT % 77.9 % (16.0-70.0); PLATELET COUNT 282 TH/MM3 (150-450); RED BLOOD COUNT 3.71 MIL/MM3 (4.00-5.30); RED CELL DISTRIBUTION WIDTH 15.1 % (11.6-17.2); WHITE BLOOD COUNT 10.6 TH/MM3 (4.0-11.0)
[2017-10-31 16:32] LABS: ALBUMIN 3.8 GM/DL (3.4-5.0); ALT (GPT) 16 U/L (10-53); AST (GOT) 14 U/L (15-37); BICARBONATE 21.5 MEQ/L (21.0-32.0); BLOOD UREA NITROGEN 28 MG/DL (7-18); CALCIUM 8.4 MG/DL (8.5-10.1); CHLORIDE 110 MEQ/L (98-107); CREATININE 1.25 MG/DL (0.50-1.00); GLOMERULAR FILTRATION RATE 42 ML/MIN (>89); GLUCOSE,RANDOM 89 MG/DL (74-106); SODIUM (NA) 139 MEQ/L (136-145)
[2017-10-31 16:34] LABS: ALKALINE PHOSPHATASE 122 U/L (45-117); TOTAL BILIRUBIN ADULT 0.3 MG/DL (0.2-1.0)
[2017-10-31 16:45] LABS: BILIRUBIN, URINE NEG (NEG); BLOOD, URINE NEG (NEG); GLUCOSE,URINE NEG (NEG); KETONE, URINE NEG (NEG); NITRITE,URINE NEG (NEG); SQUAMOUS EPITHELIAL CELL URINE 1 /hpf (0-5); URINE COLOR Straw (YELLW/STRAW); URINE LEUKOCYTE ESTERASE MOD (NEG)
--- NOTE | 2017-10-31 17:32 | RADRPT ---
EXAM DATE: 10/31/2017 5:19 PM EDT AGE/SEX: 77 years / Female INDICATIONS: RUQ pain. CLINICAL DATA: This is the patient's initial encounter. Patient reports that signs and symptoms have been present for 1 day and indicates a pain score of 3/10. MEDICAL/SURGICAL HISTORY: Pancreatitis. Hypertension. Gastroesophageal reflux disease. 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 Asthma. Cholecystectomy. Bilateral knee replacement. [place] [facility] [place]/O CONTR[place]29/2017. . MEASUREMENTS: Liver:__ 17.2 . Common Duct:__ Nonvisualized. Right Kidney:__ . FINDINGS: Liver: Normal echotexture without focal lesion or ductal dilatation. Common Duct: No intraluminal mass or stone visualized. Gallbladder: Surgically Absent. Pancreas: Pancreatic duct is abnormally dilated to at least 7 mm. Right kidney has 2.8 x 3.3 cm cyst in the lower pole and 1.6 x 1.4 cm cyst in the upper pole. CONCLUSION: 1. There is abnormal dilatation of the pancreatic duct to at least [address] [facility] of the mass in the pancreatic head which is likely resulting in pancreatic ductal dilatation. The pancreatic mass is not well identified sonographically. 2. Gallbladder surgically absent. No biliary ductal dilatation. Right renal cysts. Electronically signed by: Nick Aguilar MD 10/31/2017 5:30 PM EDT
--- NOTE | 2017-10-31 17:35 | PD ---
HPI Chief Complaint: Abdominal Pain Time Seen by Provider: 15:45 Travel History International Travel<30 days: No Contact w/Intl Traveler<30days: No Traveled to known affect area: No History of Present Illness HPI Patient is a 77-year-old female presenting to the emergency department for evaluation of left upper quadrant abdominal pain. Patient reports nausea with no vomiting. Symptom onset was gradual, symptoms were impressive for 2 days. There are no alleviating or aggravating factors. Patient denies any fever, chills, shortness of breath, chest pain, changes in her bowel habits. Patient reports a history of pancreatitis. Patient is Indonesian-speaking, nurse interpreted. Patient declined formal interpretation. PFSH Past Medical History Asthma: Yes Cardiovascular Problems: Yes Chest Pain: Yes GERD: Yes Hiatal Hernia: No Heparin Induced Thrombocytopen: No Hypertension: Yes Immune Disorder: No Implanted Vascular Access Dvce: No Musculoskeletal: Yes Neurologic: No Psychiatric: No Reproductive: No Respiratory: Yes Immunizations Current: No 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) Sleep Apnea: No Thyroid Disease: No Ulcer: No Tetanus Vaccination: > 5 Years Influenza Vaccination: Yes PNEUMOCCOCAL Vaccine (Year): 1 ?: Not Menopausal: Yes : 5 Para: 5 Past Surgical History Abdominal Surgery: Yes (cholecystectomy) Cardiac Surgery: No Cholecystectomy: Yes Coronary Artery Bypass Graft: No Ear Surgery: No Endocrine Surgery: No Eye Surgery: No Genitourinary Surgery: No Gynecologic Surgery: No Hysterectomy: No Joint Replacement: Yes (left knee 06/2011) Oral Surgery: No Thoracic Surgery: No Other Surgery: Yes (right knee) Social History Alcohol Use: No Tobacco Use: No Substance Use: No Allergies-Medications (Allergen,Severity, Reaction): Coded Allergies: iodine (Verified Allergy, Severe, Anaphylaxis, 06/20/17) iodine (Verified Allergy, Severe, Anaphylaxis, 10/31/17) potassium iodide (Verified Allergy, Severe, Anaphylaxis, 10/31/17) povidone-iodine (Verified Allergy, Severe, Anaphylaxis, 10/31/17) sodium iodide (Verified Allergy, Severe, Anaphylaxis, 10/31/17) sodium iodide (Verified Allergy, Severe, hives, 10/31/17) diatrizoate meglumine (Verified Allergy, Intermediate, RASHES/THROAT SWELLING, 10/31/17) gadobenic acid (Verified Allergy, Unknown, RASHES/THROAT SWELLING, 10/31/17 ) gadodiamide (Verified Allergy, Unknown, RASHES/THROAT SWELLING, 10/31/17) gadoteridol (Verified Allergy, Unknown, RASHES/THROAT SWELLING, 10/31/17) iodixanol (Verified Allergy, Unknown, RASHES/THROAT SWELLING, 10/31/17) iohexol (Verified Allergy, Unknown, RASHES/THROAT SWELLING, 10/31/17) Reported Meds & Prescriptions Reported Meds & Active Scripts Active Hydrochlorothiazide 12.5 Mg Cap 12.5 Mg PO DAILY Norvasc (Amlodipine Besylate) 5 Mg Tab 5 Mg PO DAILY Reported Omeprazole 40 Mg Cap 40 Mg DAILY Ventolin Hfa 18 GM Inh (Albuterol Sulfate) 90 Mcg/Act Aer 2 Puff INH Q4-6H PRN Methotrexate 2.5 Mg Tab 8 Tab PO Q7D Lisinopril 40 Mg Tab 40 Mg PO DAILY Review of Systems Except as stated in HPI: all other systems reviewed are Neg General / Constitutional: No: Fever, Chills Cardiovascular: No: Chest Pain or Discomfort Respiratory: No: Shortness of Breath Gastrointestinal: Positive: Nausea, Abdominal Pain Genitourinary: No: Dysuria Musculoskeletal: No: Myalgias Neurologic: No: Weakness, Dizziness, Focal Abnormalities Physical Exam Narrative GENERAL: Well-developed, well-nourished, alert elderly female. Presenting in no acute distress. SKIN: Warm and dry. HEAD: Atraumatic. Normocephalic. EYES: Pupils equal and round. No scleral icterus. No injection or drainage. ENT: No nasal bleeding or discharge. Mucous membranes pink and moist. NECK: Trachea midline. No JVD. CARDIOVASCULAR: Regular rate and rhythm. RESPIRATORY: No accessory muscle use. Clear to auscultation. Breath sounds equal bilaterally. GASTROINTESTINAL: Abdomen soft, non-tender, nondistended. Hepatic and splenic margins not palpable. Positive bowel sounds, no rebound, no guarding. MUSCULOSKELETAL: Extremities without clubbing, cyanosis, or edema. No obvious deformities. NEUROLOGICAL: Awake and alert. No obvious cranial nerve deficits. Motor grossly within normal limits. Five out of 5 muscle strength in the arms and legs. Normal speech. PSYCHIATRIC: Appropriate mood and affect; insight and judgment normal. Data Data Last Documented VS Vital Signs Date Time Temp Pulse Resp B/P (MAP) Pulse Ox O2 Delivery O2 Flow Rate FiO2 10/31/17 17:36 97.8 61 16 149/65 (93) 97 Room Air Orders Orders Complete Blood Count With Diff (10/31/17 15:50) Comprehensive Metabolic Panel (10/31/17 15:50) Lipase (10/31/17 15:50) Urinalysis - C+S If Indicated (10/31/17 15:50) Iv Access Insert/Monitor (10/31/17 15:50) Ecg Monitoring (10/31/17 15:50) Oximetry (10/31/17 15:50) Sodium Chlor 0.9% 1000 Ml Inj (Ns 1000 M (10/31/17 15:50) Sodium Chloride 0.9% Flush (Ns Flush) (10/31/17 16:00) Ondansetron Odt (Zofran Odt) (10/31/17 16:00) Us Abdomen Pancreas (10/31/17 ) Ct Abd/Pel W/O Iv Contrast (10/31/17 ) Ed Discharge Order (10/31/17 19:01) Labs Laboratory Tests Test 10/31/17 16:02 10/31/17 16:20 White Blood Count 10.6 TH/MM3 Red Blood Count 3.71 MIL/MM3 Hemoglobin 11.6 GM/DL Hematocrit 34.5 % Mean Corpuscular Volume 92.9 FL Mean Corpuscular Hemoglobin 31.2 PG Mean Corpuscular Hemoglobin Concent 33.6 % Red Cell Distribution Width 15.1 % Platelet Count 282 TH/MM3 Mean Platelet Volume 8.4 FL Neutrophils (%) (Auto) 77.9 % Lymphocytes (%) (Auto) 14.4 % Monocytes (%) (Auto) 6.3 % Eosinophils (%) (Auto) 0.7 % Basophils (%) (Auto) 0.7 % Neutrophils # (Auto) 8.2 TH/MM3 Lymphocytes # (Auto) 1.5 TH/MM3 Monocytes # (Auto) 0.7 TH/MM3 Eosinophils # (Auto) 0.1 TH/MM3 Basophils # (Auto) 0.1 TH/MM3 CBC Comment DIFF FINAL Differential Comment Blood Urea Nitrogen 28 MG/DL Creatinine 1.25 MG/DL Random Glucose 89 MG/DL Total Protein 7.0 GM/DL Albumin 3.8 GM/DL Calcium Level 8.4 MG/DL Alkaline Phosphatase 122 U/L Aspartate Amino Transf (AST/SGOT) 14 U/L Alanine Aminotransferase (ALT/SGPT) 16 U/L Total Bilirubin 0.3 MG/DL Sodium Level 139 MEQ/L Potassium Level 4.8 MEQ/L Chloride Level 110 MEQ/L Carbon Dioxide Level 21.5 MEQ/L Anion Gap 8 MEQ/L Estimat Glomerular Filtration Rate 42 ML/MIN Lipase 205 U/L Urine Color Straw Urine Turbidity CLEAR Urine pH 6.0 Urine Specific [place] 1.005 Urine Protein NEG mg/dL Urine Glucose (UA) NEG mg/dL Urine Ketones NEG mg/dL Urine Occult Blood NEG Urine Nitrite NEG Urine Bilirubin NEG Urine Urobilinogen LESS THAN 2 mg/dL Urine Leukocyte Esterase MOD Urine RBC LESS THAN 1 /hpf Urine WBC 6 /hpf Urine Squamous Epithelial Cells 1 /hpf Microscopic Urinalysis Comment CULT NOT INDICATED MDM Medical Decision Making Medical Screen Exam Complete: Yes Emergency Medical Condition: Yes Medical Record Reviewed: Yes Interpretation(s) Vital Signs Date Time Temp Pulse Resp B/P (MAP) Pulse Ox O2 Delivery O2 Flow Rate FiO2 10/31/17 15:55 16 96 Room Air 10/31/17 15:47 16 10/31/17 14:40 98.6 62 18 190/81 (117) 100 Laboratory Tests Test 10/31/17 16:02 10/31/17 16:20 White Blood Count 10.6 TH/MM3 Red Blood Count 3.71 MIL/MM3 Hemoglobin 11.6 GM/DL Hematocrit 34.5 % Mean Corpuscular Volume 92.9 FL Mean Corpuscular Hemoglobin 31.2 PG Mean Corpuscular Hemoglobin Concent 33.6 % Red Cell Distribution Width 15.1 % Platelet Count 282 TH/MM3 Mean Platelet Volume 8.4 FL Neutrophils (%) (Auto) 77.9 % Lymphocytes (%) (Auto) 14.4 % Monocytes (%) (Auto) 6.3 % Eosinophils (%) (Auto) 0.7 % Basophils (%) (Auto) 0.7 % Neutrophils # (Auto) 8.2 TH/MM3 Lymphocytes # (Auto) 1.5 TH/MM3 Monocytes # (Auto) 0.7 TH/MM3 Eosinophils # (Auto) 0.1 TH/MM3 Basophils # (Auto) 0.1 TH/MM3 CBC Comment DIFF FINAL Differential Comment Blood Urea Nitrogen 28 MG/DL Creatinine 1.25 MG/DL Random Glucose 89 MG/DL Total Protein 7.0 GM/DL Albumin 3.8 GM/DL Calcium Level 8.4 MG/DL Alkaline Phosphatase 122 U/L Aspartate Amino Transf (AST/SGOT) 14 U/L Alanine Aminotransferase (ALT/SGPT) 16 U/L Total Bilirubin 0.3 MG/DL Sodium Level 139 MEQ/L Potassium Level 4.8 MEQ/L Chloride Level 110 MEQ/L Carbon Dioxide Level 21.5 MEQ/L Anion Gap 8 MEQ/L Estimat Glomerular Filtration Rate 42 ML/MIN Lipase 205 U/L Urine Color Straw Urine Turbidity CLEAR Urine pH 6.0 Urine Specific [place] 1.005 Urine Protein NEG mg/dL Urine Glucose (UA) NEG mg/dL Urine Ketones NEG mg/dL Urine Occult Blood NEG Urine Nitrite NEG Urine Bilirubin NEG Urine Urobilinogen LESS THAN 2 mg/dL Urine Leukocyte Esterase MOD Urine RBC LESS THAN 1 /hpf Urine WBC 6 /hpf Urine Squamous Epithelial Cells 1 /hpf Microscopic Urinalysis Comment CULT NOT INDICATED Differential Diagnosis Gastritis versus gastroenteritis versus pancreatitis versus metabolic abnormality versus other Narrative Course Patient is a 77-year-old female presenting with left upper quadrant abdominal pain, patient is a history of pancreatitis. Abdominal exam is benign. Patient' s vital signs are stable. Labs and imaging ordered and pending. CBC with no acute findings. Chemistry with BUN and creatinine 28/1.25, this is stable when compared to prior. Lipase is 205. Analysis is unremarkable The pancreas shows abnormal dilatation of the pancreatic duct to at least [address] from June demonstrated a slight increase in size of the mass the pancreatic head. For this reason a CT scan of the abdomen and pelvis is ordered. Patient is an iodine allergy. Scan was performed without contrast. CT shows a 3.8 cm mass in the pancreatic head similar to the size June 2017 with pancreatic ductal dilatation. Findings were discussed with patient and her son. They are attempting to schedule a follow-up appoint with Dr. Britt prior to her coming in the emergency department today. She was encouraged to follow-up with her lyric writer and primary doctor as well. They were given strict return precautions. Patient's son verbalized understanding of instructions. Patient stable for discharge. Diagnosis Primary Impression: Pancreatic mass Referrals: [facility] [employer] Oncologist Primary Care Physician Patient Instructions: General Instructions Additional Instructions: Follow-up with your oncologist as scheduled Follow-up with your lyric writer and primary care doctor. Follow a bland, easy to digest diet, increasing as tolerated. Return to the emergency department for any new or worsening symptoms Med/Other Pt SpecificInfo: No Change to Meds Disposition: 01 DISCHARGE HOME Condition: Stable Waleska Ken Oct 31, 2017 17:35
[2017-10-31 17:36] VITALS: BP 149/65; PULSE 61; RESP 16; TEMP 97.8; O2SAT 97
--- NOTE | 2017-10-31 17:56 | PD ---
Physical Exam Date Seen by Provider: Oct 31, 2017 Time Seen by Provider: 16:00 Narrative I, Dr. Theodore, have reviewed the advance practice practitioner's documentation and am in agreement, met with the patient face to face, made the diagnosis, and the medical decision making was done by me. *My assessment and Findings: Patient seen and evaluated with PA, please see PA note for further details. She has history of a pancreatic mass which could not be further characterized, being followed out by Dr. Koroma, coming in with periumbilical and epigastric abdominal pains, mildly tender to palpation. Laboratory Tests Test 10/31/17 16:02 10/31/17 16:20 Red Blood Count 3.71 MIL/MM3 (4.00-5.30) Hematocrit 34.5 % (35.0-46.0) Neutrophils (%) (Auto) 77.9 % (16.0-70.0) Neutrophils # (Auto) 8.2 TH/MM3 (1.8-7.7) Blood Urea Nitrogen 28 MG/DL (7-18) Creatinine 1.25 MG/DL (0.50-1.00) Calcium Level 8.4 MG/DL (8.5-10.1) Alkaline Phosphatase 122 U/L (45-117) Aspartate Amino Transf (AST/SGOT) 14 U/L (15-37) Chloride Level 110 MEQ/L (98-107) Estimat Glomerular Filtration Rate 42 ML/MIN (>89) Urine Leukocyte Esterase MOD (NEG) Urine WBC 6 /hpf (0-5) Last 24 hours Impressions Pancreas Ultrasound 10/31/17 0000 Signed Impressions: CONCLUSION: 1. There is abnormal dilatation of the pancreatic duct to at least [address] from June demonstrated a slight increase in size of the mass in the pancreatic head which is likely resulting in pancreatic ductal dilatation. The pancreatic mass is not well identified sonographically. 2. Gallbladder surgically absent. No biliary ductal dilatation. Right renal cy sts. Lab work shows mild elevation of alk phos and ultrasound showing a mildly dilated pancreatic duct. There is also notable pancreatic mass seen at the head of the pancreas which is slightly bigger than previous evaluation. CAT scan was ordered for further characterization of the rest of the abdomen. Patient was supposed to follow-up for CAT scanning with oncology but has not yet done so. If there are no acute issues, planning to have her follow-up with oncology. Data Data Last Documented VS Vital Signs Date Time Temp Pulse Resp B/P (MAP) Pulse Ox O2 Delivery O2 Flow Rate FiO2 10/31/17 17:36 97.8 61 16 149/65 (93) 97 Room Air Orders Orders Complete Blood Count With Diff (10/31/17 15:50) Comprehensive Metabolic Panel (10/31/17 15:50) Lipase (10/31/17 15:50) Urinalysis - C+S If Indicated (10/31/17 15:50) Iv Access Insert/Monitor (10/31/17 15:50) Ecg Monitoring (10/31/17 15:50) Oximetry (10/31/17 15:50) Sodium Chlor 0.9% 1000 Ml Inj (Ns 1000 M (10/31/17 15:50) Sodium Chloride 0.9% Flush (Ns Flush) (10/31/17 16:00) Ondansetron Odt (Zofran Odt) (10/31/17 16:00) Us Abdomen Pancreas (10/31/17 ) Ct Abd/Pel W/O Iv Contrast (10/31/17 ) Labs Laboratory Tests Test 10/31/17 16:02 10/31/17 16:20 White Blood Count 10.6 TH/MM3 Red Blood Count 3.71 MIL/MM3 Hemoglobin 11.6 GM/DL Hematocrit 34.5 % Mean Corpuscular Volume 92.9 FL Mean Corpuscular Hemoglobin 31.2 PG Mean Corpuscular Hemoglobin Concent 33.6 % Red Cell Distribution Width 15.1 % Platelet Count 282 TH/MM3 Mean Platelet Volume 8.4 FL Neutrophils (%) (Auto) 77.9 % Lymphocytes (%) (Auto) 14.4 % Monocytes (%) (Auto) 6.3 % Eosinophils (%) (Auto) 0.7 % Basophils (%) (Auto) 0.7 % Neutrophils # (Auto) 8.2 TH/MM3 Lymphocytes # (Auto) 1.5 TH/MM3 Monocytes # (Auto) 0.7 TH/MM3 Eosinophils # (Auto) 0.1 TH/MM3 Basophils # (Auto) 0.1 TH/MM3 CBC Comment DIFF FINAL Differential Comment Blood Urea Nitrogen 28 MG/DL Creatinine 1.25 MG/DL Random Glucose 89 MG/DL Total Protein 7.0 GM/DL Albumin 3.8 GM/DL Calcium Level 8.4 MG/DL Alkaline Phosphatase 122 U/L Aspartate Amino Transf (AST/SGOT) 14 U/L Alanine Aminotransferase (ALT/SGPT) 16 U/L Total Bilirubin 0.3 MG/DL Sodium Level 139 MEQ/L Potassium Level 4.8 MEQ/L Chloride Level 110 MEQ/L Carbon Dioxide Level 21.5 MEQ/L Anion Gap 8 MEQ/L Estimat Glomerular Filtration Rate 42 ML/MIN Lipase 205 U/L Urine Color Straw Urine Turbidity CLEAR Urine pH 6.0 Urine Specific [place] 1.005 Urine Protein NEG mg/dL Urine Glucose (UA) NEG mg/dL Urine Ketones NEG mg/dL Urine Occult Blood NEG Urine Nitrite NEG Urine Bilirubin NEG Urine Urobilinogen LESS THAN 2 mg/dL Urine Leukocyte Esterase MOD Urine RBC LESS THAN 1 /hpf Urine WBC 6 /hpf Urine Squamous Epithelial Cells 1 /hpf Microscopic Urinalysis Comment CULT NOT INDICATED MDM Medical Record Reviewed: Yes Supervised Visit with IRIS: Yes Diagnosis Primary Impression: Pancreatic mass Condition: Stable Cayetano Theodore MD Oct 31, 2017 17:56
--- NOTE | 2017-10-31 18:55 | RADRPT ---
EXAM DATE: 10/31/2017 6:37 PM EDT AGE/SEX: 77 years / Female INDICATIONS: Right upper abdomen pain with nausea. CLINICAL DATA: This is the patient's initial encounter. Patient reports that signs and symptoms have been present for 1 day and indicates a pain score of 5/10. MEDICAL/SURGICAL HISTORY: Cardiovascular disease. Hypertension. Pancreatitis. Cholecystectomy . RADIATION DOSE: 13.69 CTDI (mGy) COMPARISON: [facility] – [place]BD[place] & [place]EL[place] W/O CONTRAST, 06/29/2017. . TECHNIQUE: Multiple contiguous axial images were obtained through the abdomen. Images were obtained using multiple row detector helical technique. Using dose reduction techniques, radiation dose was ke pt as low as reasonably achievable to obtain optimal diagnostic quality images. FINDINGS: There is a small hiatal hernia. Lung bases are clear. No acute findings in the liver, spleen, adrenal s. There is a 3.8 x 3.4 cm low-attenuation mass in the pancreatic head. When measured at the same locati on in June there is no significant change in size. There is associated pancreatic ductal dilatati on to almost 1 cm in diameter proximally as noted on the prior exam. Right renal cyst and nonobstructing 4 mm meter renal calcification are stable. Left kidney unremarkab le. No free fluid. No bowel obstruction. No adenopathy. No acute bony abnormalities. Probable injection g ranulomata in the subcutaneous tissues of the gluteal region. CONCLUSION: 1. 3.8 cm mass in the pancreatic head similar in size to June 2017 with pancreatic ductal dilata tion. 2. Stable right renal calculus and right renal cyst. 3. Small hiatal hernia. 4. Moderate coronary artery calcifications. Electronically signed by: Nick Aguilar MD 10/31/2017 6:54 PM EDT
[2017-10-31 19:37] VITALS: BP 145/63; PULSE 56; RESP 20; TEMP 98.5; O2SAT 100
== END 2017-10-31 19:45 | disposition home or self-care (01) ==
LOC: NEPE 14:30
DX: K86.9 Disease of pancreas, unspecified (principal); J45.909 Unspecified asthma, uncomplicated; K21.9 Gastro-esophageal reflux disease without esophagitis; I10 Essential (primary) hypertension; Z79.899 Other long term (current) drug therapy
CPT/HCPCS: 74176; 76705; 80053; 81001; 83690; 85025; 96360; 99284; J7030